=== PATIENT | female | born 1950 | race Caucasian/White ===

== ENCOUNTER 2019-09-06 08:41 | Outpatient (CLI) | payer MEDICARE, MEDICAID, SELFPAY ==
--- NOTE | ~2019-09-06 | XR_ITS ---
XR chest 2V DATE: 09/06/2019 09:07 INDICATION: Bilateral chest pain under both breasts TECHNIQUE: PA and lateral views COMPARISON: 01/30/2019 2 view chest FINDINGS: Status post sternotomy/coronary artery bypass graft surgery. Normal heart size. Aortic calc ification. threat monitoring analyst device overlies the lower left chest. Moderate bilateral hyperinflation. No pulmonary infiltrate or consolidation, pleural effusion or pulm onary vascular congestion or pneumothorax is detected. Diffuse osteopenia. Mild dextroscoliosis and degenerative spurring of the thoracic spine. IMPRESSION: Status post sternotomy/CABG. threat monitoring analyst device. Moderate hyperinflation Aortic calcification Reviewed, dictated and finalized at location B. THCARE REPRESENTATIVE
== END 2019-09-06 08:42 | disposition home or self-care (01) ==
LOC: ANHIMG 08:45
PROVIDERS: PCP Family Medicine; Visit Provider Family Medicine
DX: R07.9 Chest pain, unspecified (principal); Z95.1 Presence of aortocoronary bypass graft; R91.8 Other nonspecific abnormal finding of lung field; I70.0 Atherosclerosis of aorta
CPT/HCPCS: 71046

== ENCOUNTER 2020-01-31 01:20 | Outpatient (CLI) | payer MEDICARE, MEDICAID, SELFPAY ==
[2020-01-31 18:41] LABS: SARS-CoV-2 RNA PCR Negative
== END 2020-01-31 01:21 | disposition home or self-care (01) ==
LOC: ANHCOVIDDT 01:20
PROVIDERS: PCP Family Medicine; Visit Provider Internal Medicine Cardiovascular Disease
DX: Z01.812 Encounter for preprocedural laboratory examination (principal); Z11.59 Encounter for screening for other viral diseases
CPT/HCPCS: 87635; C9803; U0003

== ENCOUNTER 2020-03-02 11:54 | Outpatient (CLI) | payer MEDICARE, MEDICAID, SELFPAY ==
--- NOTE | ~2020-03-02 | XR_ITS ---
EXAMINATION: XR chest 2V DATE: 03/02/2020 12:19 INDICATION: Chest wall pain. Posterior left chest pain. TECHNIQUE: Frontal and lateral views of the chest were obtained. COMPARISON: Chest 2 views 09/06/2019, chest CT 05/24/2017 FINDINGS: There is mild scarring at the lung apices and at left lung base. No pleural effusion or pne umothorax. The heart size is normal. Median sternotomy wires and mediastinal surgical clips are seen, likely from prior coronary artery bypass grafting. Retained epicardial pacer wires are noted. There is an electronic implant in left anterior chest wall. There is mild chronic anterior wedging of multi ple thoracic vertebral bodies. IMPRESSION: 1. Mild scarring at the lung apices and at left lung base. Reviewed, dictated and finalized at location B.
== END 2020-03-02 11:55 | disposition home or self-care (01) ==
LOC: ANHIMG 12:03
PROVIDERS: PCP Family Medicine; Visit Provider Family Medicine
DX: R07.89 Other chest pain (principal); R91.8 Other nonspecific abnormal finding of lung field
CPT/HCPCS: 71046

== ENCOUNTER 2020-03-14 07:57 | Outpatient (CLI) | payer MEDICARE, MEDICAID, SELFPAY ==
--- NOTE | ~2020-03-14 | MM_ITS ---
EXAMINATION: MM screening [facility] BI w ana HISTORY: Screening mammogram TECHNIQUE: Craniocaudal and mediolateral oblique 3-D tomosynthesis images were obtained and synthetic 2-D images were generated. CAD analysis was submitted and interpreted. COMPARISON: 01/06/2019, 10/21/2017, 09/19/2016 BREAST PARENCHYMAL COMPOSITION: There are scattered areas of fibroglandular density. FINDINGS: A stable focal asymmetry in the upper outer quadrant of the left breast is considered benig n given the lack of interval change. There is no evidence of suspicious mass, calcification, or archi tectural distortion to suggest malignancy in either breast. There has been no suspicious interval bacilio nge. IMPRESSION: 1. No mammographic evidence of malignancy. 2. Recommend routine screening mammography in one year. BI-RADS Category 2: Benign finding(s). Reviewed, dictated and finalized at location A.
== END 2020-03-14 07:58 | disposition home or self-care (01) ==
PROVIDERS: PCP Family Medicine; Visit Provider Family Medicine
DX: Z12.31 Encounter for screening mammogram for malignant neoplasm of breast (principal)
CPT/HCPCS: 77063; 77067

== ENCOUNTER 2020-07-25 10:42 | Outpatient (CLI) | payer MEDICARE, MEDICAID, SELFPAY ==
--- NOTE | ~2020-07-25 | US_ITS ---
EXAMINATION: US carotid duplex BI DATE: 07/25/2020 11:19 INDICATION: TECHNIQUE: Grayscale, color Doppler, and pulsed Doppler images of the cervical carotid arteries were obtained. The degree of vessel stenosis is placed in one of the following categories: normal, <50%, 5 0-69%, >=70% but less than near-occlusion, near-occlusion, or total occlusion. Note that percent sten osis relative to normal distal artery lumen diameter is indirectly measured from velocity measurement s as described by Bucky, et al. Radiology 2003; 229:340-346. Notes: Normal: Peak systolic velocity <125 centimeters/sec and no plaque <50%. Peak systolic velocity <125 ( EDV <40; ICA/CCA PSV ratio <2.0; used these factors only a tandem lesions or low cardiac output or co ntralateral disease) 50-69 %: PSV 125-230 (EDV 40-100; ratio 2-4) >= 70% but less than near occlusion: PSV greater than 230 (EDV > 100; ratio> 4.0) Near Occlusion: PSV that is variable; markedly narrowed lumen Occlusion: Absent flow on color/spectral Doppler and no lumen on toney scale. COMPARISON: 07/26/2019 FINDINGS: RIGHT: The right common carotid artery (CCA) peak systolic velocity (PSV) is 89 cm/s. The right internal car otid artery (ICA) PSV is 142 cm/s. The right ICA end-diastolic velocity (EDV) is 35 cm/s. The right I CA/CCA PSV ratio is 1.6. The external carotid artery (ECA) PSV is 183 cm/s. There is antegrade flow i n the right vertebral artery. LEFT: The left CCA PSV is 132 cm/s. The left ICA PSV is 226 cm/s. The left ICA EDV is 68 cm/s. The left ICA /CCA PSV ratio is 1.7. The ECA PSV is 164 cm/s. There is antegrade flow in the left vertebral artery . IMPRESSION: 1. 50-69% stenosis in the right internal carotid artery by sonographic criteria. 2. 50-69% stenosis in the left internal carotid artery by sonographic criteria. Reviewed, dictated and finalized at location A. ORATE DIRECTOR OF PHARMACY IMPRESSION: 1. 50-69% stenosis in the right internal carotid artery by sonographic criteria . 2. 50-69% stenosis in the left internal carotid artery by sonographic criteria.
== END 2020-07-25 10:43 | disposition home or self-care (01) ==
PROVIDERS: PCP Family Medicine; Visit Provider Internal Medicine Cardiovascular Disease
DX: I65.23 Occlusion and stenosis of bilateral carotid arteries (principal); R09.89 Other specified symptoms and signs involving the circulatory and respiratory systems
CPT/HCPCS: 93880

== ENCOUNTER 2020-07-27 09:17 | Outpatient (CLI) | payer MEDICARE, MEDICAID, SELFPAY ==
--- NOTE | ~2020-07-27 | XR_ITS ---
XR chest 2V 07/27/2020 09:32 Indication: Status post placement of implantable loop recorder. Procedure: PA and lateral views of the chest Comparison: Comparison to multiple prior studies sequentially, with oldest reviewed study dated 11/28. Findings: Status post median sternotomy for CABG. There is an implantable loop recorder overlying the cardiac contour. Chronic left basilar scarring. No acute focal pneumonia, edema or effusion. There i s apical pleural thickening/scarring. Impression: 1: No acute cardiopulmonary disease. Reviewed, dictated and finalized at location A. RING MACHINE OPERATOR Impression: 1: No acute cardiopulmonary disease.
== END 2020-07-27 09:18 | disposition home or self-care (01) ==
LOC: ANHIMG 09:25
PROVIDERS: PCP Family Medicine; Visit Provider Internal Medicine Cardiovascular Disease
DX: Z95.818 Presence of other cardiac implants and grafts (principal)
CPT/HCPCS: 71046

== ENCOUNTER 2020-08-17 10:25 | Outpatient (CLI) | payer MEDICARE, MEDICAID, SELFPAY ==
--- NOTE | ~2020-08-17 | XR_ITS ---
EXAMINATION: XR cervical spine 4-5V DATE: 08/17/2020 10:51 INDICATION: Neck pain. TECHNIQUE: 4 views of cervical spine were obtained. COMPARISON: Cervical spine radiographs 12/04/2017 FINDINGS: Bone alignment is normal. Vertebral body heights are normal. There is mildly decreased disc height at C5-C6. The facet joints are unremarkable. No central canal stenosis or prevertebral soft t issue swelling. IMPRESSION: 1. Mild cervical spondylosis. Reviewed, dictated and finalized at location A. UCTION HONING MACHINE OPERATOR
== END 2020-08-17 10:26 | disposition home or self-care (01) ==
PROVIDERS: PCP Family Medicine; Visit Provider Family Medicine
DX: M54.2 Cervicalgia (principal); M47.812 Spondylosis without myelopathy or radiculopathy, cervical region
CPT/HCPCS: 72050

== ENCOUNTER 2020-10-24 10:41 | Outpatient (CLI) | payer MEDICARE, MEDICAID, SELFPAY ==
--- NOTE | ~2020-10-24 | XR_ITS ---
EXAMINATION: XR chest 2V DATE: 10/24/2020 11:04 INDICATION: Hypertension. TECHNIQUE: Frontal and lateral views of the chest were obtained. COMPARISON: Chest 2 views 07/27/2020, chest CT 05/24/2017 FINDINGS: There is stable scarring in the upper lobes. There is stable mild scarring in the lower lob es. No pleural effusion or pneumothorax. The heart size is normal. Median sternotomy wires and medias tinal surgical clips are seen, likely from prior coronary artery bypass grafting. There is an electro tirso implant in left chest wall. There is mild chronic anterior wedging of multiple vertebral bodies. IMPRESSION: 1. Stable mild scarring in the upper and lower lobes. Reviewed, dictated and finalized at location A.
== END 2020-10-24 10:42 | disposition home or self-care (01) ==
PROVIDERS: PCP Family Medicine; Visit Provider Family Medicine
DX: J98.4 Other disorders of lung (principal)
CPT/HCPCS: 71046

== ENCOUNTER 2020-11-21 12:17 | Outpatient (CLI) | payer MEDICARE, MEDICAID, SELFPAY ==
--- NOTE | ~2020-11-21 | XR_ITS ---
EXAMINATION: XR lumbar spine 2-3V, XR hip RT min 2V, XR hip LT min 2V DATE: 11/21/2020 12:55 INDICATION: Low back pain and bilateral hip pain. TECHNIQUE: 1. Anteroposterior and lateral views of the lumbar spine, and cone-down lateral view of the lumbosacr al junction were obtained. 2. Anteroposterior, frog leg lateral and crosstable lateral views of the right hip were obtained. 3. Anteroposterior, frog leg lateral and crosstable lateral views of the left hip were obtained. COMPARISON: None. FINDINGS: Lumbar spine: Alignment is normal. Vertebral body heights and lumbar disc heights are normal. Mild to moderate disc height loss throughout the visualized lower thoracic spine and at T12-L1. Mild to moderate lower lum bar predominant facet osteoarthritis. Left pectoral implantable tester food products. Median sternotomy wi res and mediastinal surgical clips are seen, likely from prior coronary artery bypass grafting. Retai sheryl epicardial pacemaker leads. Atherosclerotic aorta. Pelvis and bilateral hips: Alignment is normal. No fracture or suspected avascular necrosis. Mild bilateral hip and sacroiliac o steoarthritis. Soft tissues are unremarkable. IMPRESSION: 1. Thoracolumbar spondylosis with mild to moderate multilevel disc height loss in the lower thoracic spine and mild to moderate lower lumbar predominant facet osteoarthritis. 2. Mild bilateral hip and sacroiliac osteoarthritis. Reviewed, dictated and finalized at location A. IMPRESSION: 1. Thoracolumbar spondylosis with mild to moderate multilevel disc height loss in the lower thoracic spine and mild to moderate lower lumbar predominant facet osteoarthritis. 2. Mild bilateral hip and sacroiliac osteoarthritis. IMPRESSION: 1. Thoracolumbar spondylosis with mild to moderate multilevel disc height loss in the lower thoracic spine and mild to moderate lower lumbar predominant facet osteoarthritis. 2. Mild bilateral hip and sacroiliac osteoarthritis.
== END 2020-11-21 12:18 | disposition home or self-care (01) ==
PROVIDERS: PCP Family Medicine; Visit Provider Family Medicine
DX: M16.0 Bilateral primary osteoarthritis of hip (principal); M47.816 Spondylosis without myelopathy or radiculopathy, lumbar region
CPT/HCPCS: 72100; 73502

== ENCOUNTER 2021-06-02 08:43 | Outpatient (CLI) | payer OTHER, SELFPAY ==
--- NOTE | ~2021-06-02 | MM_ITS ---
EXAMINATION: MM screening [facility] BI w ana HISTORY: Screening mammogram TECHNIQUE: Craniocaudal and mediolateral oblique 3-D tomosynthesis images were obtained and synthetic 2-D images were generated. CAD analysis was submitted and interpreted. COMPARISON: 03/14/2020, 01/06/2019 BREAST PARENCHYMAL COMPOSITION: There are scattered areas of fibroglandular density. FINDINGS: There is no evidence of suspicious mass, calcification, or architectural distortion to sugg est malignancy in either breast. There has been no suspicious interval change. IMPRESSION: 1. No mammographic evidence of malignancy. 2. Recommend routine screening mammography in one year. BI-RADS Category 1: Negative Reviewed, dictated and finalized at location A. IOVASCULAR DISEASE SPECIALIST
--- NOTE | ~2021-06-02 | DEXA_ITS ---
Bone Density Report Name: Katherine Quinones Age: 71 Sex: Female Ethnicity: White Date of : 1950 Indication: osteopenia; height loss; prior fracture; Referring Provider: NOHEMI, MERCEDES Barry Study: Bone densitometry was performed. Exam Date: June 02, 2021 Accession number: [id number] Bone Density: Region BMD T-score Z-score Classification AP Spine (L2, L3, L4) 0.838 -2.2 0.0 Osteopenia Femoral Neck (Left) 0.777 -0.6 1.2 Normal Total Hip (Left) 0.784 -1.3 0.2 Osteopenia Total Hip Bilateral Avg 0.772 -1.4 0.1 Osteopenia Femoral Neck (Right) 0.814 -0.3 1.5 Normal Total Hip (Right) 0.759 -1.5 0.0 Osteopenia World Health Organization criteria for BMD impression classify patients as: Normal (T-score at or above -1.0), Osteopenia (T-score between -1.0 and -2.5), or Osteoporosis (T-score at or below -2.5). 10-year Fracture Risk(1): Major Osteoporotic Fracture 13% Hip Fracture 1.1% Reported Risk Factors: [place] (), Neck BMD=0.777, BMI=24.5, previous fracture (1) FRAX(R) Version 3.08. Fracture probability calculated for an untreated patient. Fracture probability may be lower if the patient has received treatment. Previous Exams: Region Exam Age BMD T-score BMD Change BMD Change Date g/cm2 vs Baseline vs Previous AP Spine(L2, L3, L4) 06/02/2021 71 0.838 -2.2 -0.086(-9.3%)* -0.022(-2.6%) 09/08/2018 68 0.860 -2.0 -0.064(-6.9%)* -0.064(-6.9%)* 06/01/2015 65 0.924 -1.4 Total Hip(Left) 06/02/2021 71 0.784 -1.3 -0.099(-11.2%) -0.028(-3.4%)* 09/08/2018 68 0.811 -1.1 -0.072(-8.1%)* -0.072(-8.1%)* 06/01/2015 65 0.883 -0.5 Total Hip(Right) 06/02/2021 71 0.759 -1.5 -0.162(-17.5%) -0.027(-3.5%)* 09/08/2018 68 0.787 -1.3 -0.134(-14.6%) -0.134(-14.6%) 06/01/2015 65 0.921 -0.2 *Denotes significance at 95% confidence level, LSC for AP Spine = 0.022 g/cm2, LSC for Total Hip = 0.027 g/cm2 Clinical Information Provided by Patient: Has had a low trauma fracture Has used the following medications: Vitamin D Patient maximum height was 66 Menopause Age: 51 No regular weight bearing exercise Does not regularly consume dairy products Drinks caffeinated beverages Onset of menses at age 13 Number of children 4 Impression: The patient has low bone mass, based on the Total Spine T-score. The patient has an estimated ten-year risk of hip fracture of 1.1% and an estimated ten-year risk of major fractur
== END 2021-06-02 08:44 | disposition home or self-care (01) ==
PROVIDERS: PCP Family Medicine; Referring Provider Internal Medicine Cardiovascular Disease; Visit Provider Family Medicine
DX: Z12.31 Encounter for screening mammogram for malignant neoplasm of breast (principal); Z78.0 Asymptomatic menopausal state; M85.89 Other specified disorders of bone density and structure, multiple sites
CPT/HCPCS: 77063; 77067; 77080

== ENCOUNTER 2021-08-27 11:49 | Outpatient (CLI) | payer MEDICARE, MEDICAID, SELFPAY ==
--- NOTE | ~2021-08-27 | US_ITS ---
EXAMINATION: US carotid duplex BI DATE: 08/27/2021 12:41 INDICATION: Atherosclerosis TECHNIQUE: Grayscale, color Doppler, and pulsed Doppler images of the cervical carotid arteries were obtained. The degree of vessel stenosis is placed in one of the following categories: normal, <50%, 5 0-69%, >=70% but less than near-occlusion, near-occlusion, or total occlusion. Note that percent sten osis relative to normal distal artery lumen diameter is indirectly measured from velocity measurement s as described by Bucky, et al. Radiology 2003; 229:340-346. COMPARISON: None. FINDINGS: RIGHT: The right common carotid artery (CCA) peak systolic velocity (PSV) is 129 cm/s. The right internal ca rotid artery (ICA) PSV is 137 cm/s. The right ICA end-diastolic velocity (EDV) is 25 cm/s. The right ICA/CCA PSV ratio is 1.1. Grayscale and color Doppler images yield an estimate of 50-69% diameter red uction from plaque in the ICA. The external carotid artery (ECA) PSV is 202 cm/s. There is antegrade flow in the right vertebral artery. LEFT: The left CCA PSV is 153 cm/s. The left ICA PSV is 264 cm/s. The left ICA EDV is 55 cm/s. The left ICA /CCA PSV ratio is 1.7. Grayscale and color Doppler images yield an estimate of >=70% (but less than n ear occlusion) diameter reduction from plaque in the ICA. The ECA PSV is 343 cm/s. There is antegrade flow in the left vertebral artery. IMPRESSION: 1. 50-69% stenosis in the right internal carotid artery. 2. >=70% (but less than near occlusion) stenosis in the left internal carotid artery. Reviewed, dictated and finalized at location A. TENDER HELPER IMPRESSION: 1. 50-69% stenosis in the right internal carotid artery. 2. >=70% (but less than near occlusion) stenosis in the left internal carotid a lobo.
== END 2021-08-27 11:50 | disposition home or self-care (01) ==
PROVIDERS: PCP Family Medicine; Visit Provider Internal Medicine Cardiovascular Disease
DX: I70.90 Unspecified atherosclerosis (principal); R09.89 Other specified symptoms and signs involving the circulatory and respiratory systems; I65.23 Occlusion and stenosis of bilateral carotid arteries
CPT/HCPCS: 93880

== ENCOUNTER 2021-09-17 08:02 | Outpatient (CLI) | payer MEDICARE, MEDICAID, SELFPAY ==
--- NOTE | ~2021-09-17 | CT_ITS ---
EXAMINATION: CTA neck EXAM DATE: 09/17/2021 08:31 INDICATION: Bruit Of Left Carotid Artery . TECHNIQUE: Spiral CTA of the carotid arteries was performed with intravenous injection 100cc of Omnip aque 350. Axial, coronal, sagittal reformatted images reviewed. Additional reformatted images creat ed on dedicated 3-D workstation. NASCET comparable standard used to assess the degree of arterial st enosis. The dose-length product (DLP) for this examination was 379.00 mGy-cm. The exposure was tail ored according to patient size (auto mA exposure control), and iterative reconstruction (ASIR) was us ed as additional dose reduction technique. There is no prior study for comparison. FINDINGS: The right vertebral artery is dominant. The origin of the left vertebral artery does not en mirta, but is reconstituted at the mid cervical level. This diminutive vertebral artery appears to en d in posterior inferior cerebellar artery. The right vertebral artery supplies the basilar. There is mild to moderate bilateral carotid bulb arteriosclerosis with 30% stenosis on the right and 35% steno sis on the left. No cervical lymphadenopathy. Unremarkable parotid and submandibular glands. Biapical opacities most l ikely chronic postinfectious residua. Mild to moderate cervical spondylosis. IMPRESSION: Bilateral carotid bulb arteriosclerosis with 30% right and 35% left carotid bulb stenosis . Reviewed, dictated and finalized at location B. MEN PLANT OPERATOR IMPRESSION: Bilateral carotid bulb arteriosclerosis with 30% right and 35% left carotid bulb stenosis.
[2021-09-17 08:25] LABS: Estimated Glomerular Filt Rate 49
== END 2021-09-17 08:03 | disposition home or self-care (01) ==
LOC: ANHIMG 08:06
PROVIDERS: PCP Family Medicine; Visit Provider Internal Medicine Cardiovascular Disease
DX: R09.89 Other specified symptoms and signs involving the circulatory and respiratory systems (principal); I65.23 Occlusion and stenosis of bilateral carotid arteries
CPT/HCPCS: 70498; Q9967

== ENCOUNTER → 2022-02-09 00:07 | Outpatient (CLI) | payer MEDICARE, MEDICAID, SELFPAY ==
[2022-02-09 11:03] LABS: SARS-CoV-2 RNA PCR Negative
== END ==
PROVIDERS: PCP Family Medicine; Visit Provider Family Medicine
DX: R05.1 Acute cough (principal); Z20.822 Contact with and (suspected) exposure to COVID-19
CPT/HCPCS: C9803; U0003; U0005

== ENCOUNTER 2022-09-05 08:09 | Outpatient (CLI) | payer MEDICARE, MEDICAID, SELFPAY ==
--- NOTE | ~2022-09-05 | XR_ITS ---
EXAMINATION: XR chest 2V DATE: 09/05/2022 08:40 INDICATION: Chronic posterior chest pain TECHNIQUE: PA and lateral views of the chest are obtained. COMPARISON: 10/24/2020 FINDINGS: The lungs are free of acute opacities. There is scarring of the lung apices. No pleural eff usion or pneumothorax. The cardiomediastinal silhouette is normal. There is moderate thoracic spondyl osis. Median sternotomy wires and mediastinal surgical clips are seen, likely from prior coronary art louis bypass grafting. A cardiac monitoring device is implanted in the left anterior chest wall. IMPRESSION: 1. No acute cardiopulmonary abnormality. Reviewed, dictated and finalized at location L. KILN OPERATOR
--- NOTE | ~2022-09-05 | XR_ITS ---
EXAMINATION: XR thoracic spine 3V DATE: 09/05/2022 08:40 INDICATION: Thoracic back pain TECHNIQUE: AP, lateral and lateral swimmer's views of the thoracic spine were obtained. COMPARISON: 12/04/2017 FINDINGS: Bone alignment is normal. There is no fracture. The vertebral body heights are maintained. There is chronic, moderate loss of intervertebral disc space height at multiple levels in the midthor acic spine. Small degenerative osteophytes project from the anterior endplates of multiple vertebral bodies. Median sternotomy wires and mediastinal surgical clips are seen, likely from prior coronary a rtery bypass grafting. IMPRESSION: 1. Moderate thoracic spondylosis without acute findings or significant interval change. Reviewed, dictated and finalized at location L. BUILDER
--- NOTE | ~2022-09-05 | XR_ITS ---
EXAMINATION: XR lumbar spine 2-3V DATE: 09/05/2022 08:40 INDICATION: Low back pain TECHNIQUE: Anteroposterior and lateral views of the lumbar spine, and cone-down lateral view of the l umbosacral junction were obtained. COMPARISON: 11/21/2020 FINDINGS: Alignment is normal. There is no fracture. There is mild loss of intervertebral disc space height at L5-S1. The vertebral body heights are maintained. Small degenerative osteophytes project fr om the anterior endplates of multiple vertebral bodies. There is moderate facet joint osteoarthritis of the lower lumbar spine. Calcified atherosclerosis is noted. IMPRESSION: 1. Mild to moderate lumbar spondylosis without acute findings or significant interval change. Reviewed, dictated and finalized at location L. BILITATION AIDE/SCHEDULER IMPRESSION: 1. Mild to moderate lumbar spondylosis without acute findings or significant in terval change.
== END 2022-09-05 08:10 | disposition home or self-care (01) ==
PROVIDERS: PCP Family Medicine; Visit Provider Family Medicine
DX: R07.9 Chest pain, unspecified (principal); M47.816 Spondylosis without myelopathy or radiculopathy, lumbar region; M47.814 Spondylosis without myelopathy or radiculopathy, thoracic region
CPT/HCPCS: 71046; 72072; 72100

== ENCOUNTER 2022-11-26 09:13 | Outpatient (CLI) | payer MEDICARE, MEDICAID, SELFPAY ==
--- NOTE | ~2022-11-26 | MM_ITS ---
EXAMINATION: MM screening [facility] BI w ana HISTORY: Screening mammogram TECHNIQUE: Craniocaudal and mediolateral oblique 3-D tomosynthesis images were obtained and synthetic 2-D images were generated. CAD analysis was submitted and interpreted. COMPARISON: 06/02/2021, 03/14/2020, 01/06/2019 BREAST PARENCHYMAL COMPOSITION: There are scattered areas of fibroglandular density. FINDINGS: No suspicious mass, calcification, or architectural distortion are identified in either hillary ast to suggest malignancy. There has been no suspicious interval change. IMPRESSION: 1. No mammographic evidence of malignancy. 2. Recommend routine screening mammography in one year. BI-RADS Category 1: Negative Reviewed, dictated and finalized at location A.
== END 2022-11-26 09:14 | disposition home or self-care (01) ==
LOC: ANHIMG 09:17
PROVIDERS: PCP Family Medicine; Visit Provider Family Medicine
DX: Z12.31 Encounter for screening mammogram for malignant neoplasm of breast (principal)
CPT/HCPCS: 77063; 77067

== ENCOUNTER 2023-05-06 13:56 | Outpatient (CLI) | payer MEDICARE, MEDICAID, SELFPAY ==
--- NOTE | ~2023-05-06 | XR_ITS ---
XR chest 2V DATE: 05/06/2023 14:12 INDICATION: Bilateral lower lateral rib pain. No injury. TECHNIQUE: 2 views COMPARISON: September 05, 2022 2 view chest September 06, 2019 PA and lateral chest FINDINGS: Monitor device is again noted in the anterior lower left chest wall. Status post sternotomy and coronary artery bypass graft surgery. Borderline heart size. Aortic calcification. Bilateral apical scarring. No pulmonary infiltrate or consolidation, pleural effusion or pulmonary va scular congestion or pneumothorax is detected. Diffuse osteopenia. There is thoracic dextroscoliosis. IMPRESSION: Bilateral apical scarring Status post sternotomy/CABG No active cardiopulmonary disease is evident Reviewed, dictated and finalized at location A.
== END 2023-05-06 13:57 | disposition home or self-care (01) ==
LOC: ANHIMG 14:02
PROVIDERS: PCP Family Medicine; Visit Provider Family Medicine
DX: R07.81 Pleurodynia (principal); J98.4 Other disorders of lung; Z95.1 Presence of aortocoronary bypass graft
CPT/HCPCS: 71046

== ENCOUNTER 2023-10-10 10:01 | Outpatient (CLI) | payer MEDICARE, MEDICAID, SELFPAY ==
--- NOTE | ~2023-10-10 | US_ITS ---
EXAMINATION: US carotid duplex BI DATE: 10/10/2023 11:37 INDICATION: Bilateral carotid artery stenosis TECHNIQUE: Grayscale, color Doppler, and pulsed Doppler images of the cervical carotid arteries were obtained. The degree of vessel stenosis is placed in one of the following categories: normal, <50%, 5 0-69%, >=70% but less than near-occlusion, near-occlusion, or total occlusion. Note that percent sten osis relative to normal distal artery lumen diameter is indirectly measured from velocity measurement s as described by Bucky, et al. Radiology 2003; 229:340-346. COMPARISON: 08/27/2021 FINDINGS: RIGHT: The right common carotid artery (CCA) peak systolic velocity (PSV) is 96 cm/s. The right internal car otid artery (ICA) PSV is 149 cm/s. The right ICA end-diastolic velocity (EDV) is 30 cm/s. The right I CA/CCA PSV ratio is 1.5. Grayscale and color Doppler images yield an estimate of 50-69% diameter redu ction from plaque in the ICA. The external carotid artery (ECA) PSV is 227 cm/s. There is antegrade f low in the right vertebral artery. LEFT: The left CCA PSV is 136 cm/s. The left ICA PSV is 180 cm/s. The left ICA EDV is 25 cm/s. The left ICA /CCA PSV ratio is 1.3. Grayscale and color Doppler images yield an estimate of 50-69% diameter reduct ion from plaque in the ICA. The ECA PSV is 332 cm/s. There is antegrade flow in the left vertebral ar katie. IMPRESSION: 1. 50-69% stenosis in the right internal carotid artery. 2. 50-69% stenosis in the left internal carotid artery. Reviewed, dictated and finalized at location A.
== END 2023-10-10 10:02 | disposition home or self-care (01) ==
PROVIDERS: PCP Family Medicine; Visit Provider Nurse Practitioner Adult Health
DX: I65.23 Occlusion and stenosis of bilateral carotid arteries (principal)
CPT/HCPCS: 93880

== ENCOUNTER 2024-05-09 08:01 | Emergency (ER) | payer MEDICARE, MEDICAID, SELFPAY ==
--- NOTE | ~2024-05-09 | CT_ITS ---
Clinical Indication: Chest pain, abdominal pain CT Scan of the Chest, Abdomen, and Pelvis with Contrast: Technique: Contiguous sections were acquired throughout the chest, abdomen, and pelvis after intraven ous administration of 100 cc of Omnipaque 350. Dose reduction technique was used on this scan by uti veritoing automated exposure control and iterative reconstruction technique. The dose-length product (DL P) was 553.54 mGy-cm. Findings: There is no evidence of any significant mediastinal, hilar or axillary lymphadenopathy. The mediastin al soft tissues and vascular structures appear normal. No thoracic aortic aneurysm or dissection. No pulmonary embolus seen. There is no evidence of pleural or pericardial effusion. There is mild diffuse interstitial thickening. There are irregular biapical airspace opacity not refl ect chronic scarring versus possibly pneumonia or other interstitial disease. Probable minimal depend ent atelectatic change. The liver, spleen, pancreas, gallbladder, adrenals and kidneys are within normal limits. Infrarenal a bdominal aortic aneurysm measures up to 4 cm in diameter. There are atherosclerotic calcifications of the aorta. No lymphadenopathy. No bowel obstruction or bowel wall thickening. There is no evidence to suggest acute appendicitis. Urinary bladder is unremarkable. No adnexal mass seen. No ascites. There is mild loss of height of mi d to lower thoracic vertebral bodies with mild kyphosis, possibly representing Scheuermann's disease. Impression: 4 cm infrarenal abdominal aortic aneurysm. Irregular biapical airspace opacity reflect chronic biapical scarring versus pneumonia or other chron ic interstitial disease. Probable underlying mild interstitial pulmonary edema versus other mild chronic interstitial disease. Suspected Scheuermann's disease. Reviewed, dictated and finalized at [facility]. Impression: 4 cm infrarenal abdominal aortic aneurysm. Irregular biapical airspace opacity reflect chronic biapical scarring versus pn eumonia or other chronic interstitial disease. Probable underlying mild interstitial pulmonary edema versus other mild chronic interstitial disease. Suspected Scheuermann's disease.
--- NOTE | 2024-05-09 08:04 | ECG_ITS ---
Test Date: 2024-05-09 08:11:19 Measurements Intervals [place] Rate: 83 P: 47 MT: 140 QRS: 19 QRSD: 94 T: 30 QT: 356 QTc: 418 Interpretive Statements SINUS RHYTHM MINOR NONSPECIFIC ST SEGMENT CHANGE BORDERLINE ECG No previous ECG available for comparison Electronically Signed On 05-09-2024 09:07:35 CDT by Herber Dickson M.D.
[2024-05-09 08:05] VITALS: BP 191/82; PULSE 88; RESP 20; TEMP 36.5; O2SAT 100
--- NOTE | 2024-05-09 08:11 | ED.GENADULT ---
HPI - General Adult General Chief complaint: Abdominal Pain Stated complaint: abd pain Time Seen by Provider: 05/09/24 08:03 History of Present Illness HPI narrative: 74-year-old female presenting to the emergency department for evaluation for epigastric pain. Patient states she has daily pain but feels that the pain is worsened today. Patient states she was concerned that the pain was her aneurysm so she presented to the emergency department for evaluation. Patient states while she does have this pain constantly every day typically. She thinks it is more muscular in nature but today the pain is worse than typical so she became concerned. Related Data Home Medications Medication Instructions Recorded Confirmed No Home Medications 12/24/23 12/24/23 Allergies Allergy/AdvReac Type Severity Reaction Status Date / Time Sulfa (Sulfonamide Allergy Unknown Unknown Verified 05/09/24 08:19 Antibiotics) metoprolol Allergy Unknown Verified 05/09/24 08:20 Review of Systems Review of Systems: All systems reviewed & are unremarkable except as noted in HPI and below PMFSH Past Medical History Medical History (Updated 05/09/24 @ 12:02 by Chester Carrazna MD) Arthritis of carpometacarpal (CMC) joint of left thumb Arthritis of left wrist Fracture of distal end of left radius Family History Family History Other Cerebrovascular accident Diabetes mellitus Family history of alcoholism Family history of arthritis Family history of malignant neoplasm Hypertension Social History Social History Smoking status: Former smoker Alcohol intake: current Exam Narrative: APPEARANCE: Well appearing, no pain, no distress, well-nourished. HEAD: normocephalic, atraumatic. EYES: PERRLA/EOMI, conjunctivae clear. NOSE: Normal no drainage EARS:TMS clear with good light reflex. THROAT: Pharynx clear, no exudate. NECK: Supple. No adenopathy, no masses. RESPIRATORY: Airway patent, respirations nonlabored. Clear to auscultation bilaterally, no rales, rhonchi, wheezing. CARDIOVASCULAR: Regular rate and rhythm without murmurs rubs or gallops. ABDOMINAL: Epigastric tenderness to palpation MUSCULOSKELETAL: Moves all extremities. Strength/ROM intact, No edema, No calf tenderness. NEURO: Alert. Cranial nerves II through XII intact. Grossly intact Course Vital Signs Vital signs: Vital Signs Temperature 97.7 F 05/09/24 08:05 Pulse Rate 88 05/09/24 08:05 Respiratory Rate 20 05/09/24 08:05 Blood Pressure 191/82 H 05/09/24 08:05 Pulse Oximetry 100 05/09/24 08:05 Temperature 97.7 F 05/09/24 08:05 Pulse Rate 52 L 05/09/24 12:00 Respiratory Rate 18 05/09/24 12:00 Blood Pressure 111/56 L 05/09/24 12:00 Pulse Oximetry 95 05/09/24 12:00 Medical Decision Making MDM Narrative Medical decision making narrative: 74-year-old female presenting to the emergency department for evaluation for epigastric pain. Patient is afebrile with no leukocytosis and a stable hemoglobin of 12.5. Patient has a normal INR. No acute abnormalities on her CMP with negative serial troponins negative T bili AST ALT alk-phos and negative lipase. UA is not concerning for infection. CTA was ordered due to patient complaining of persistent abdominal pain. Patient does have a 4 cm infrarenal abdominal aortic aneurysm. Patient will have close follow-up with her primary care physician for this. Patient was also encouraged close follow-up with primary care physician for additional outpatient cardiac workup Differential Diagnosis Differential Diagnosis: Colitis, diverticulitis, intracranial injury, UTI, aneurysm, pancreatitis, cholelithiasis, cholecystitis Vital Signs Vital Signs: Vital Signs Temperature 97.7 F 05/09/24 08:05 Pulse Rate 88 05/09/24 08:05 Respiratory Rate 20 05/09/24 08:05 Blood Pres
[2024-05-09 08:36] LABS: Basophils Absolute Auto 0.1 K/mm3 (0.0-0.1); Basophils Percent Auto 0.5 % (0.2-1.2); Eosinophils Absolute Auto 0.3 K/mm3 (0-0.3); Hematocrit 38.2 % (37.0-47.0); Hemoglobin 12.5 g/dL (12.0-15.0); Immature Granulocyte Absolute 0.04 K/mm3 (0.00-0.031); Immature Granulocyte Percent A 0.4 % (0-0.5); Lymphocytes Absolute Auto 3.56 K/mm3 (0.9-3.2); Lymphocytes Percent Auto 37.1 % (18.3-44.2); Mean Corpuscular HGB Conc 32.7 g/dl (32-36); Mean Corpuscular Hemoglobin 32.2 pg (26-34); Mean Corpuscular Volume 98.5 fl (80-100); Mean Platelet Volume 10.2 fl (7.4-10.4); Monocytes Absolute Auto 0.8 K/mm3 (0.1-0.6); Monocytes Percent Auto 8.8 % (2.6-8.5); Neutrophils Absolute Auto 4.8 K/mm3 (1.3-6.7); Neutrophils Percent Auto 50.2 % (45.5-73.1); Platelet Count Result 268 k/mm3 (150-375); Red Blood Count 3.88 M/mm3 (4.2-5.4); Red Cell Distribution Width 13.6 % (11.5-14.5); White Blood Count 9.6 K/mm3 (4.5-10.0)
[2024-05-09 08:37] LABS: Prothrombin Time 13.8 Seconds (11.1-14.7)
[2024-05-09 08:38] LABS: Partial Thromboplastin Time 24.4 Seconds (22.3-36.8)
[2024-05-09 08:49] LABS: Add Urine Microscopic? YES; Appearance Urine Clear (Clear); Bacteria Urine None Seen /hpf; Bilirubin Urine Negative (Negative); Blood Urine Negative (Negative); Color Urine Yellow (Yellow); Glucose Urine UA Negative (Negative); Ketones Urine Negative (Negative); Leukocyte Esterase Ur Negative LEU/UL (Negative); Nitrate Urine Negative (Negative); Non Pathogenic Casts 0-2; Protein Urine Trace mg/dL (Negative); RBC Urine 0-2 /hpf (0-2); Specific Grav Ur 1.013 (1.001-1.035); Squamous Epithelial Cell Urine None Seen /hpf (Few); Urobilinogen Urine 0.2 mg/dL (<2.0); WBC Urine 0-5 /hpf (0-3)
[2024-05-09 08:51] LABS: Alanine Aminotransferase 13 U/L (6-35); Albumin Level 4.8 g/dL (3.5-5.1); Alkaline Phosphatase 72 U/L (38-126); Anion Gap 11 mmol/L (4-12); Aspartate Amino Transferase 32 U/L (14-36); Bilirubin,Total 0.6 mg/dL (0.2-1.3); Blood Urea Nitrogen 27 mg/dL (7-17); Carbon Dioxide 24 mmol/L (22-30); Chloride 104 mmol/L (98-107); Estimated CRCL calculation 29 ml/min; Estimated Glomerular Filt Rate 40; Glucose 102 mg/dL (65-110); Lipase 156 U/L (23-300); Potassium 3.9 mmol/L (3.4-5.0); Sodium 139 mmol/L (137-145)
[2024-05-09 09:00] VITALS: BP 157/68; PULSE 82; RESP 16; O2SAT 97
[2024-05-09 09:38] LABS: Troponin I < 0.012 ng/mL (0.000-0.034)
[2024-05-09 10:00] VITALS: BP 124/66; PULSE 71; RESP 18; O2SAT 95
[2024-05-09 11:00] VITALS: BP 147/62; PULSE 69; RESP 18; O2SAT 98
--- NOTE | 2024-05-09 11:02 | ECG_ITS ---
Test Date: 2024-05-09 11:04:52 Measurements Intervals [place] Rate: 68 P: 39 ND: 149 QRS: 17 QRSD: 82 T: 33 QT: 404 QTc: 432 Interpretive Statements SINUS RHYTHM NONSPECIFIC T-WAVE ABNORMALITY ABNORMAL ECG Compared to ECG 05/09/2024 08:11:19 T-wave abnormality now present Electronically Signed On 05-10-2024 10:37:07 CDT by Ernie Zarate M.D.
[2024-05-09 11:37] LABS: Troponin I < 0.012 ng/mL (0.000-0.034)
[2024-05-09 12:00] VITALS: BP 111/56; PULSE 52; RESP 18; O2SAT 95
== END 2024-05-09 13:00 | disposition home or self-care (01) ==
PROVIDERS: Emergency Provider Emergency Medicine; PCP Nurse Practitioner Family
DX: R10.13 Epigastric pain (principal); M19.032 Primary osteoarthritis, left wrist; M18.9 Osteoarthritis of first carpometacarpal joint, unspecified; Z87.891 Personal history of nicotine dependence; I71.43 Infrarenal abdominal aortic aneurysm, without rupture; R93.5 Abnormal findings on diagnostic imaging of other abdominal regions, including retroperitoneum; R94.31 Abnormal electrocardiogram [ECG] [EKG]
CPT/HCPCS: 36415; 71275; 74174; 80053; 81001; 83690; 84484; 85025; 85610; 85730; 93005; 99284; Q9967

== ENCOUNTER 2024-11-22 08:13 | Outpatient (CLI) | payer MEDICARE, MEDICAID, SELFPAY ==
--- NOTE | ~2024-11-22 | US_ITS ---
EXAMINATION: US arterial duplex LE DATE: 11/22/2024 09:16 INDICATION: Peripheral vascular disease TECHNIQUE: Multiple grayscale and Doppler ultrasound images of the arteries of the left lower limb we re obtained. COMPARISON: None FINDINGS: Triphasic waveforms with brisk systolic upstrokes at the left common femoral artery and profunda femo ral artery. Biphasic waveforms also with brisk systolic upstrokes at the left superficial femoral and popliteal arteries. Monophasic waveforms with brisk systolic upstrokes at the left anterior tibial, posterior tibial and dorsalis pedis arteries. Left peroneal artery was unable to be visualized. Triphasic waveforms with brisk systolic upstroke at the right common femoral, superficial femoral and popliteal arteries. Biphasic waveforms in the right profunda femoral, posterior tibial, anterior tib ial, peroneal and dorsalis pedis arteries, all with brisk systolic upstrokes. IMPRESSION: 1. No discernible arterial flow in the region of the left peroneal artery which could be thrombosed. Brisk systolic upstrokes without evident significant stenosis in the remaining arteries of both lower limbs. Reviewed, dictated and finalized at location A. IMPRESSION: 1. No discernible arterial flow in the region of the left peroneal artery which could be thrombosed. Brisk systolic upstrokes without evident significant sten osis in the remaining arteries of both lower limbs.
--- OUTSIDE RECORDS SUMMARY | 2024-11-22 08:24 | XMS_ITS | Data Portability ---
Author Organization [place] - [facility] [employer], Main Office Address [address] [place] [address] Assessment Encounter Date Assessment Date Assessment LastModified by Organization Details LastModified Time 10/21/2023 10/21/2023 will see therapist and psychiatry upcoming feeling better now, will recheck labs [email or web address] Not available 10/21/2023 11:47:13 04/08/2024 04/08/2024 I have reconciled the patient's medications post their discharge from inpatient facility. Not available 04/08/2024 08:29:39 Plan of Treatment Reminders Order Date Submit Date Provider Last Modified By Organization Details Last Modified Time Details Appointments None recorded. Lab TSH, serum or plasma 2023 024 [email or web address] [facility] (Lab), [address] [place], [address], 4 07:57:30 lipid panel, serum 2023 024 PASTOR Not available 4 22:19:17 hepatic function panel, serum 2023 024 PASTOR Not available 4 22:19:19 vitamin D3, 25-hydroxy, serum 2023 024 PASTOR Not available 4 22:08:30 BMP, serum or plasma 2023 024 PASTOR Not available 4 22:19:15 CBC w/ auto diff 2023 024 PASTOR Not available 4 03:00:23 TSH, serum or plasma 2023 024 PASTOR Not available 4 22:28:16 T4, free, serum 2023 024 PASTOR Not available 4 22:28:06 urinalysis complete, reflex culture 2023 024 [email or web address] Not available 4 08:20:20 ferritin, serum or plasma 2023 024 PASTOR Not available 4 22:28:36 iron + total iron-bindin g capacity (TIBC), serum 2023 024 PASTOR Not available 4 22:18:33 CBC w/ auto diff 2023 024 PASTOR Not available 4 20:06:32 vitamin B12, serum 2023 024 PASTOR Not available 4 22:14:55 lipid panel, serum [address] (Lab), [address] [place], [address], 3 09:05:54 hepatic function panel, serum [address] (Lab), [address] [place], [address], 3 09:06:32 vitamin D3, 25-hydroxy, serum [address] (Lab), [address] [place], [address], 3 09:09:04 BMP, serum or plasma [address] (Lab), [address] [place], [address], 3 08:47:31 CBC w/ auto diff [address] (Lab), [address] [place], [address], 3 08:58:13 TSH, serum or plasma [address] (Lab), [address] [place], [address], 3 08:58:35 T4, free, serum [address] (Lab), [address] [place], [address], 3 08:58:57 ferritin, serum or plasma [address] (Lab), [address] [place], [address], 3 09:06:55 iron + total iron-bindin g capacity (TIBC), serum [address] (Lab), [address] [place], [address], 3 09:07:16 CBC w/ auto diff [address] (Lab), [address] [place], [address], 3 09:08:35 vitamin B12, serum [address] (Lab), [address] [place], [address], 3 09:05:13 Referral None recorded. Procedures None recorded. Surgeries None recorded. Imaging None recorded. Medication Orders benzonatate 200 mg capsule 2023 024 [facility], [address], [address], 4 08:26:34 amlodipine 10 mg tablet 2023 024 [facility], [address], [address], 4 08:26:33 trazodone 50 mg tablet 2022 023 [facility], [address], [address], 3 08:18:31 amoxicillin 875 mg tablet 2022 023 [email or web address] [facility], [address], [address], 4 07:42:30 Patient TargetsNo targets recorded. Patient Instructions Encounter Date Encounter Id Patient Instructions Last Modified By Organization Details Last Modified Time 04/08/2024 [id number] Thank you for your visit to our office today. We would like to request that you reach out to your referring or previous provider and request that they send us a Summary of Care in electronic form, so that we may have it on file in your medical record. At your visit, we had the medical records we needed to provide you with the best possible care; however, for insurance purposes, an electronic Summary of Care is beneficial. Thank you for your assistance in obtaining this information and we look forward to providing continued care to you. Please review your medication list from the Summary of Care for this visit. If there are any differences from what you are currently taking at home, please call us to discuss. Not available 04/08/2024 08:20:58 Homebound Status : {{Patient has an inability to leave the home without a taxing effort and assistance from another person Does not meet homebound status}} Required Home Health Services: {{none fci, physical therapy, occupational therapy fci, physical therapy fci}} Durable Medical Equipment needed: {{cane walker wal ker with seat manual wheelchair bedsid e commode oxygen}} Billing Guidelines CPT code 31981- Transitional Care Management services with moderate medical decision complexity (isce-ut-qsol visit within 14 days of discharge). CPT code 40510- Transitional Care Management services with high medical decision complexity (arrq-ie-isdh visit within 7 days of discharge). Not available 04/08/2024 08:20:58 Reason for Referral None Reported. Results Created Date Observation Date Name Description Value Unit Range Abnormal Flag Note LastModifiedBy Organization Detail LastModifiedTime 05/05/2005/05/2023 IRON/ TIBC PANEL total iron binding capacity 370 mcg/d L 265-47 5 Not Available [facility] (Lab) [address] [place], [address], 05/05/2023 20:12:31 05/05/2005/05/2023 IRON/ TIBC PANEL % transferrin saturation 32 % 20-55 Not Available [facility] (Lab) [address] [place], [address], 05/05/2023 20:12:31 05/05/2005/05/2023 IRON/ TIBC PANEL unsaturated iron bind capacity 251 mcg/d L 126-38 2 Not Available [facility] (Lab) [address] [place] [address], [address], 05/05/2023 20:12:31 05/05/2005/05/2023 IRON/ TIBC PANEL iron 119 mcg/d L 42-175 Not Available [facility] (Lab) [address] [place], [address], 05/05/2023 20:12:31 05/05/2005/05/2023 BASIC METAB OLIC PANEL sodium 142 mmol/ L 137-14 5 Not Available [facility] (Lab) [address] [place] [address], [address], 05/05/2023 19:57:15 05/05/2005/05/2023 BASIC METAB OLIC PANEL potassium 4.3 mmol/ L 3.5-5. 1 Not Available [facility] (Lab) [address] [place], [address], 05/05/2023 19:57:15 05/05/2005/05/2023 BASIC METAB OLIC PANEL chloride 106 mmol/ L 98-107 Not Available [facility] (Lab) [address] [place], [address], 05/05/2023 19:57:15 05/05/2005/05/2023 BASIC METAB OLIC PANEL carbon dioxide 27 mmol/ L 22-30 Not Available [facility] (Lab) [address] [place], [address], 05/05/2023 19:57:15 05/05/2005/05/2023 BASIC METAB OLIC PANEL anion gap 13.3 mmol/ L 14-22 low Not Available [facility] (Lab) [address] [place], [address], 05/05/2023 19:57:15 05/05/2005/05/2023 BASIC METAB OLIC PANEL glucose 86 mg/dL 70-99 Not Available [facility] (Lab) [address] [place], [address], 05/05/2023 19:57:15 05/05/2005/05/2023 BASIC METAB OLIC PANEL BUN 24 mg/dL 8-19 high Not Available [facility] (Lab) [address] [place], [address], 05/05/2023 19:57:15 05/05/2005/05/2023 BASIC METAB OLIC PANEL creatinine 1.30 mg/dL 0.66-1 .25 high Not Available [facility] (Lab) [address] [place], [address], 05/05/2023 19:57:15 10/1605/05/2023 BASIC METAB OLIC PANEL GFR 40 Refer ence Range : Allen ge GFR Healt hy Adult : >60 mL/mi n/1.7 3 m2 Chron ic Kidne y Disea se: 15-60 mL/mi n/1.7 3 m2 Kidne y Failu re: <15/m L/min /1.73 m2 www.n iddk. nih.g ov The MDRD study equat ion has not been valid ated in child dougie <18 years of age; pregn ant women ; the elder ly >85 years of age; or in some racia l or ethni c subgr oups, such as Hispa nics. Outsi de the valid ated geraldine eters , estim ated GFR is less accur ate, requi ring clini elham judgm ent on a case- by-ca se basis . Clini elham inter preta tion for other races and ages must be made by the clini davina. The MDRD study equat ion has not been valid ated for the evalu ation of serum creat inine relat ed to nutri olga l statu s or medic ation usage . For perso ns <18 years of age, a pedia tric GFR calcu lator is avail able on the [facility] websi te: https :[email or web address] webber.jayden young/ami jacobsenal s/kdo qi/gf r_cal culat or Not Available [facility] (Lab) [address] [place], [address], 05/05/2023 19:57:15 05/05/2005/05/2023 BASIC METAB OLIC PANEL calcium 10.5 mg/dL 8.4-10 .2 high Not Available [facility] (Lab) [address] [place], [address], 05/05/2023 19:57:15 05/05/2005/05/2023 LIPID PANEL cholesterol 211 mg/dL 140-19 9 high NIH JERAD NSUS RECOM MENDA TION FOR SUMAN STERO L: ADULT CHILD LOW RISK: <200 <170 BORDE RLINE : <200- 239 ----- HIGH RISK: >240 >200 Not Available [facility] (Lab) [address] [place], [address], 05/05/2023 19:57:20 05/05/2005/05/2023 LIPID PANEL triglyceride s 350 mg/dL 0-150 high NIH JERAD NSUS REPOR T RECOM MENDA TION FOR TRIGL YCERI OJSEY: ADULT CHILD LOW RISK: <150 ----- BODER LINE: 150-1 99 ----- HIGH RISK: >200 ----- Not Available [facility] (Lab) [address] [place], [address], 05/05/2023 19:57:20 05/05/2005/05/2023 LIPID PANEL HDL cholesterol 57 mg/dL 40- Not Available [facility] (Lab) [address] [place], [address], 05/05/2023 19:57:20 05/05/2005/05/2023 LIPID PANEL LDL cholesterol, calculated 84 mg/dL 0-130 NIH JERAD NSUS REPOR T RECOM MENDA TIONS FOR LDL: ADULT CHILD LOW RISK <130 <110 (OPTI MAL LDL) <100 ----- BORDE RLINE : 130-1 59 ----- HIGH RISK: >160 >130 A TRIGL YCERI DE RESUL T >400 INVAL IDATE S THE CALCU LATIO N FOR LDL FRACT IONAT ION - THE LDL RESUL T WILL NOT BE REPOR RICHAR. Not Available [facility] (Lab) [address] [place], [address], 05/05/2023 19:57:20 05/05/20 23 05/05/2023 HEPAT IC/LI ELLIOT PANEL alkaline phosphatase 59 U/L 38-126 Not Available [facility] (Lab) [address] [place], [address], 05/05/2023 19:57:30 05/05/20 23 05/05/2023 HEPAT IC/LI ELLIOT PANEL alanine aminotransfe rase 17 U/L 0-35 Not Available [facility] (Lab) [address] [place], [address], 05/05/2023 19:57:30 05/05/2005/05/2023 HEPAT IC/LI ELLIOT PANEL aspartate aminotransfe rase 27 U/L 15-37 Not Available [facility] (Lab) [address] [place], [address], 05/05/2023 19:57:30 05/05/20 23 05/05/2023 HEPAT IC/LI ELLIOT PANEL bilirubin, total 0.70 mg/dL 0.20-1 .30 Not Available [facility] (Lab) [address] [place], [address], 05/05/2023 19:57:30 05/05/20 23 05/05/2023 HEPAT IC/LI ELLIOT PANEL bilirubin, conjugated (direct) 0.00 mg/dL 0.00-0 .30 Not Available [facility] (Lab) [address] [place], [address], 05/05/2023 19:57:30 05/05/2005/05/2023 HEPAT IC/LI ELLIOT PANEL biliurubin,u ncong. (indirect) 0.40 mg/dL 0.00-1 .1 Not Available [facility] (Lab) [address] [place], [address], 05/05/2023 19:57:30 05/05/20 23 05/05/2023 HEPAT IC/LI ELLIOT PANEL total protein 9.7 g/dL 6.3-8. 2 high Not Available [facility] (Lab) [address] [place], [address], 05/05/2023 19:57:30 05/05/20 23 05/05/2023 HEPAT IC/LI ELLIOT PANEL albumin 4.9 g/dL 3.0-4. 4 high Not Available [facility] (Lab) [address] [place], [address], 05/05/2023 19:57:30 05/05/20 23 05/05/2023 HEPAT IC/LI ELLIOT PANEL globulin 4.8 g/dL 2.6-4. 2 high Not Available [facility] (Lab) [address] [place], [address], 05/05/2023 19:57:30 05/05/20 23 05/05/2023 HEPAT IC/LI ELLIOT PANEL A/G ratio 1.0 ratio 1.0-2. 0 Not Available [facility] (Lab) [address] [place], [address], 05/05/2023 19:57:30 05/05/20 23 05/05/2023 CBC/C OMPLE TE BLD COUNT W/DIF F white blood cells 7.2 x10'3 /uL 4.2-10 .8 Not Available [facility] (Lab) [address] [place], [address], 05/05/2023 20:00:12 05/05/2005/05/2023 CBC/C OMPLE TE BLD COUNT W/DIF F red blood cells 3.98 x10'6 /uL 3.80-5 .20 Not Available [facility] (Lab) [address] [place], [address], 05/05/2023 20:00:12 05/05/2005/05/2023 CBC/C OMPLE TE BLD COUNT W/DIF F hemoglobin 12.9 g/dL 12.0-1 5.6 Not Available [facility] (Lab) [address] [place], [address], 05/05/2023 20:00:12 05/05/20 23 05/05/2023 CBC/C OMPLE TE BLD COUNT W/DIF F hematocrit 40.8 % 35.7-4 5.7 Not Available [facility] (Lab) [address] [facility], [address], 05/05/2023 20:00:12 05/05/2005/05/2023 CBC/C OMPLE TE BLD COUNT W/DIF F mean red cell volume 102.5 fL 82.0-9 9.0 high Not Available [facility] (Lab) [address] [place], [address], 05/05/2023 20:00:12 05/05/2005/05/2023 CBC/C OMPLE TE BLD COUNT W/DIF F mean red cell hemoglobin 32.4 pg 27.0-3 3.0 Not Available [facility] (Lab) [address] [place], [address], 05/05/2023 20:00:12 05/05/2005/05/2023 CBC/C OMPLE TE BLD COUNT W/DIF F mean RBC HGB concentratio n 31.6 g/dL 31.0-3 6.0 Not Available [facility] (Lab) [address] [place], [address], 05/05/2023 20:00:12 05/05/2005/05/2023 CBC/C OMPLE TE BLD COUNT W/DIF F red cell distribution width 13.2 % 11.8-1 5.5 Not Available [facility] (Lab) [address] [place], [address], 05/05/2023 20:00:12 05/05/20 23 05/05/2023 CBC/C OMPLE TE BLD COUNT W/DIF F platelets 235 x10'3 /uL 150-40 0 Not Available [facility] (Lab) [address] [place], [address], 05/05/2023 20:00:12 05/05/20 23 05/05/2023 CBC/C OMPLE TE BLD COUNT W/DIF F mean platelet volume 11.2 fL 9.0-12 .4 Not Available [facility] (Lab) [address] [place], [address], 05/05/2023 20:00:12 05/05/2005/05/2023 CBC/C OMPLE TE BLD COUNT W/DIF F neutrophils 43.9 % 39.0-7 2.0 Not Available [facility] (Lab) [address] [place], [address], 05/05/2023 20:00:12 05/05/20 23 05/05/2023 CBC/C OMPLE TE BLD COUNT W/DIF F lymphocytes 40.5 % 16.0-4 7.0 Not Available [facility] (Lab) [address] [place], [address], 05/05/2023 20:00:12 05/05/2005/05/2023 CBC/C OMPLE TE BLD COUNT W/DIF F monocytes 8.7 % 5.0-12 .0 Not Available [facility] (Lab) [address] [place], [address], 05/05/2023 20:00:12 05/05/2005/05/2023 CBC/C OMPLE TE BLD COUNT W/DIF F eosinophils 5.8 % 1.0-7. 0 Not Available [facility] (Lab) [address] [place], [address], 05/05/2023 20:00:12 05/05/2005/05/2023 CBC/C OMPLE TE BLD COUNT W/DIF F basophils 0.8 % 0.0-2. 0 Not Available [facility] (Lab) [address] [place], [address], 05/05/2023 20:00:12 05/05/20 23 05/05/2023 CBC/C OMPLE TE BLD COUNT W/DIF F immature granulocytes 0.3 % 0.00-0 .50 Not Available [facility] (Lab) [address] [place], [address], 05/05/2023 20:00:12 05/05/2005/05/2023 CBC/C OMPLE TE BLD COUNT W/DIF F neutrophils, absolute count 3.18 x10'3 /uL 1.5-8. 0 Not Available [facility] (Lab) [address] [place], [address], 05/05/2023 20:00:12 05/05/2005/05/2023 CBC/C OMPLE TE BLD COUNT W/DIF F lymphocytes, absolute count 2.93 x10'3 /uL 1.07-3 .43 Not Available [facility] (Lab) [address] [place], [address], 05/05/2023 20:00:12 05/05/2005/05/2023 CBC/C OMPLE TE BLD COUNT W/DIF F monocytes, absolute count 0.63 x10'3 /uL 0.29-0 .99 Not Available [facility] (Lab) [address] [place], [address], 05/05/2023 20:00:12 05/05/2005/05/2023 CBC/C OMPLE TE BLD COUNT W/DIF F eosinophils, absolute count 0.42 x10'3 /uL 0.02-0 .53 Not Available [facility] (Lab) [address] [place], [address], 05/05/2023 20:00:12 05/05/2005/05/2023 CBC/C OMPLE TE BLD COUNT W/DIF F basophils, absolute count 0.06 x10'3 /uL 0.01-0 .08 Not Available [facility] (Lab) [address] [place], [address], 05/05/2023 20:00:12 05/05/2012 0505/05/2023 CBC/C OMPLE TE BLD COUNT W/DIF F immature granulocytes ,absolute 0.02 x10'3 /uL 0.00-0 .05 Not Available [facility] (Lab) [address] [place], [address], 05/05/2023 20:00:12 05/05/20 23 05/05/2023 CBC/C OMPLE TE BLD COUNT W/DIF F nucleated red blood cells 0.0 % -0 Not Available [facility] (Lab) [address] [place], [address], 05/05/2023 20:00:12 05/05/2005/05/2023 CBC/C OMPLE TE BLD COUNT W/DIF F NRBC# 0.00 x10'3 /uL Not Available [facility] (Lab) [address] [place], [address], 05/05/2023 20:00:12 05/05/2005/05/2023 VITAM IN D 25-HY DROXY vd25oh 49.6 NG/mL 30-100 Vitam in D Statu s: Defic ient: <20 ng/mL Insuf ficie nt: 20-29 ng/mL Suffi cient : 30-10 0 ng/mL Not Available [facility] (Lab) [address] [place], [address], 05/05/2023 20:12:11 05/05/2005/05/2023 T4 FREE free T4 1.39 NG/dL 0.78-2 .19 Not Available [facility] (Lab) [address] [place], [address], 05/05/2023 20:12:20 05/05/2005/05/2023 TSH thyroid-stim ulating hormone 1.040 uIU/m L 0.465- 4.680 Not Available [facility] (Lab) [address] [place], [address], 05/05/2023 20:28:04 05/05/20 23 05/05/2023 ABDIRASHID TIN ferritin 18 NG/mL 11.1-2 64 Not Available [facility] (Lab) [address] [place], [address], 05/05/2023 20:28:24 05/05/20 23 05/05/2023 VITAM IN B12 (CYNTHIA BRUCE ) vb12 509 pg/mL 239-93 1 Not Available [facility] (Lab) [address] [place], [address], 05/05/2023 21:12:55 06/18/20 23 06/18/2023 CBC/C OMPLE TE BLD COUNT W/DIF F white blood cells 5.7 x10'3 /uL 4.2-10 .8 Not Available [facility] (Lab) [address] [place], [address], 06/18/2023 19:45:29 06/18/20 23 06/18/2023 CBC/C OMPLE TE BLD COUNT W/DIF F red blood cells 3.62 x10'6 /uL 3.80-5 .20 low Not Available [facility] (Lab) [address] [place], [address], 06/18/2023 19:45:29 06/18/20 23 06/18/2023 CBC/C OMPLE TE BLD COUNT W/DIF F hemoglobin 11.8 g/dL 12.0-1 5.6 low Not Available [facility] (Lab) [address] [place], [address], 06/18/2023 19:45:29 06/18/20 23 06/18/2023 CBC/C OMPLE TE BLD COUNT W/DIF F hematocrit 37.1 % 35.7-4 5.7 Not Available [facility] (Lab) [address] [place], [address], 06/18/2023 19:45:29 06/18/20 23 06/18/2023 CBC/C OMPLE TE BLD COUNT W/DIF F mean red cell volume 102.5 fL 82.0-9 9.0 high Not Available [facility] (Lab) [address] [place], [address], 06/18/2023 19:45:29 06/18/20 23 06/18/2023 CBC/C OMPLE TE BLD COUNT W/DIF F mean red cell hemoglobin 32.6 pg 27.0-3 3.0 Not Available [facility] (Lab) [address] [place], [address], 06/18/2023 19:45:29 06/18/20 23 06/18/2023 CBC/C OMPLE TE BLD COUNT W/DIF F mean RBC HGB concentratio n 31.8 g/dL 31.0-3 6.0 Not Available [facility] (Lab) [address] [place], [address], 06/18/2023 19:45:29 06/18/20 23 06/18/2023 CBC/C OMPLE TE BLD COUNT W/DIF F red cell distribution width 13.2 % 11.8-1 5.5 Not Available [facility] (Lab) [address] [place], [address], 06/18/2023 19:45:29 06/18/20 23 06/18/2023 CBC/C OMPLE TE BLD COUNT W/DIF F platelets 259 x10'3 /uL 150-40 0 Not Available [facility] (Lab) [address] [place], [address], 06/18/2023 19:45:29 06/18/20 23 06/18/2023 CBC/C OMPLE TE BLD COUNT W/DIF F mean platelet volume 10.5 fL 9.0-12 .4 Not Available [facility] (Lab) [address] [place], [address], 06/18/2023 19:45:29 06/18/20 23 06/18/2023 CBC/C OMPLE TE BLD COUNT W/DIF F neutrophils 42.5 % 39.0-7 2.0 Not Available [facility] (Lab) [address] [place], [address], 06/18/2023 19:45:29 06/18/20 23 06/18/2023 CBC/C OMPLE TE BLD COUNT W/DIF F lymphocytes 39.1 % 16.0-4 7.0 Not Available [facility] (Lab) [address] [place], [address], 06/18/2023 19:45:29 06/18/20 23 06/18/2023 CBC/C OMPLE TE BLD COUNT W/DIF F monocytes 11.2 % 5.0-12 .0 Not Available [facility] (Lab) [address] [place], [address], 06/18/2023 19:45:29 06/18/20 23 06/18/2023 CBC/C OMPLE TE BLD COUNT W/DIF F eosinophils 5.6 % 1.0-7. 0 Not Available [facility] (Lab) [address] [place], [address], 06/18/2023 19:45:29 06/18/20 23 06/18/2023 CBC/C OMPLE TE BLD COUNT W/DIF F basophils 1.4 % 0.0-2. 0 Not Available [facility] (Lab) [address] [place], [address], 06/18/2023 19:45:29 06/18/20 23 06/18/2023 CBC/C OMPLE TE BLD COUNT W/DIF F immature granulocytes 0.2 % 0.00-0 .50 Not Available [facility] (Lab) [address] [facility] [place], [address], 06/18/2023 19:45:29 06/18/20 23 06/18/2023 CBC/C OMPLE TE BLD COUNT W/DIF F neutrophils, absolute count 2.43 x10'3 /uL 1.5-8. 0 Not Available [facility] [address] [facility] [place], [address], 06/18/2023 19:45:29 06/18/20 23 06/18/2023 CBC/C OMPLE TE BLD COUNT W/DIF F lymphocytes, absolute count 2.23 x10'3 /uL 1.07-3 .43 Not Available [facility] (Lab) [address] [place], [address], 06/18/2023 19:45:29 06/18/20 23 06/18/2023 CBC/C OMPLE TE BLD COUNT W/DIF F monocytes, absolute count 0.64 x10'3 /uL 0.29-0 .99 Not Available [facility] (Lab) [address] [place], [address], 06/18/2023 19:45:29 06/18/20 23 06/18/2023 CBC/C OMPLE TE BLD COUNT W/DIF F eosinophils, absolute count 0.32 x10'3 /uL 0.02-0 .53 Not Available [facility] (Lab) [address] [place], [address], 06/18/2023 19:45:29 06/18/20 23 06/18/2023 CBC/C OMPLE TE BLD COUNT W/DIF F basophils, absolute count 0.08 x10'3 /uL 0.01-0 .08 Not Available [facility] (Lab) [address] [place], [address], 06/18/2023 19:45:29 06/18/20 23 06/18/2023 CBC/C OMPLE TE BLD COUNT W/DIF F immature granulocytes ,absolute 0.01 x10'3 /uL 0.00-0 .05 Not Available [facility] (Lab) [address] [place], [address], 06/18/2023 19:45:29 06/18/20 23 06/18/2023 CBC/C OMPLE TE BLD COUNT W/DIF F nucleated red blood cells 0.0 % -0 Not Available [facility] (Lab) [address] [place], [address], 06/18/2023 19:45:29 06/18/20 23 06/18/2023 CBC/C OMPLE TE BLD COUNT W/DIF F NRBC# 0.00 x10'3 /uL Not Available [facility] (Lab) [address] [place], [address], 06/18/2023 19:45:29 06/18/20 23 06/18/2023 IRON/ TIBC PANEL total iron binding capacity 339 mcg/d L 265-47 5 Not Available [facility] (Lab) [address] [place], [address], 06/18/2023 20:22:23 06/18/20 23 06/18/2023 IRON/ TIBC PANEL % transferrin saturation 23 % 20-55 Not Available [facility] (Lab) [address] [place], [address], 06/18/2023 20:22:23 06/18/20 23 06/18/2023 IRON/ TIBC PANEL unsaturated iron bind capacity 261 mcg/d L 126-38 2 Not Available [facility] (Lab) [address] [place], [address], 06/18/2023 20:22:23 06/18/20 23 06/18/2023 IRON/ TIBC PANEL iron 78 mcg/d L 42-175 Not Available [facility] (Lab) [address] [place], [address], 06/18/2023 20:22:23 06/18/20 23 06/18/2023 BASIC METAB OLIC PANEL sodium 142 mmol/ L 137-14 5 Not Available [facility] (Lab) [address] [place], [address], 06/18/2023 20:21:37 06/18/20 23 06/18/2023 BASIC METAB OLIC PANEL potassium 4.2 mmol/ L 3.5-5. 1 Not Available [facility] (Lab) [address] [place], [address], 06/18/2023 20:21:37 06/18/20 23 06/18/2023 BASIC METAB OLIC PANEL chloride 108 mmol/ L 98-107 high Not Available [facility] (Lab) [address] [place], [address], 06/18/2023 20:21:37 06/18/20 23 06/18/2023 BASIC METAB OLIC PANEL carbon dioxide 25 mmol/ L 22-30 Not Available [facility] (Lab) [address] [place], [address], 06/18/2023 20:21:37 06/18/20 23 06/18/2023 BASIC METAB OLIC PANEL anion gap 13.2 mmol/ L 14-22 low Not Available [facility] (Lab) [address] [place], [address], 06/18/2023 20:21:37 06/18/20 23 06/18/2023 BASIC METAB OLIC PANEL glucose 86 mg/dL 70-99 Not Available [facility] (Lab) [address] [place], [address], 06/18/2023 20:21:37 06/18/20 23 06/18/2023 BASIC METAB OLIC PANEL BUN 22 mg/dL 8-19 high Not Available [facility] (Lab) [address] [place], [address], 06/18/2023 20:21:37 06/18/20 23 06/18/2023 BASIC METAB OLIC PANEL creatinine 1.26 mg/dL 0.66-1 .25 high Not Available [facility] (Lab) [address] [place], [address], 06/18/2023 20:21:37 06/18/20 23 06/18/2023 BASIC METAB OLIC PANEL GFR 42 Refer ence Range : Allen ge GFR Healt hy Adult : >60 mL/mi n/1.7 3 m2 Chron ic Kidne y Disea se: 15-60 mL/mi n/1.7 3 m2 Kidne y Failu re: <15/m L/min /1.73 m2 www.n iddk. nih.g ov The MDRD study equat ion has not been valid ated in child dougie <18 years of age; pregn ant women ; the elder ly >85 years of age; or in some racia l or ethni c subgr oups, such as Hisfl nics. Outsi de the valid ated geraldine eters , estim ated GFR is less accur ate, requi ring clini elham judgm ent on a case- by-ca se basis . Clini elham inter preta tion for other races and ages must be made by the clini davina. The MDRD study equat ion has not been valid ated for the evalu ation of serum creat inine relat ed to nutri olga l statu s or medic ation usage . For perso ns <18 years of age, a pedia tric GFR calcu lator is avail able on the [facility] websi te: https ://teresita w.kid lawanda.o rg/pr ofess ional s/kdo qi/gf r_cal culat or Not Available [facility] (Lab) [address] [place], [address], 06/18/2023 20:21:37 06/18/20 23 06/18/2023 BASIC METAB OLIC PANEL calcium 10.4 mg/dL 8.4-10 .2 high Not Available [facility] (Lab) [address] [place], [address], 06/18/2023 20:21:37 06/18/20 23 06/18/2023 LIPID PANEL cholesterol 191 mg/dL 140-19 9 NIH JERAD NSUS RECOM MENDA TION FOR SUMAN STERO L: ADULT CHILD LOW RISK: <200 <170 BORDE RLINE : <200- 239 ----- HIGH RISK: >240 >200 Not Available [facility] (Lab) [address] [place], [address], 06/18/2023 20:21:43 06/18/20 23 06/18/2023 LIPID PANEL triglyceride s 172 mg/dL 0-150 high NIH JERAD NSUS REPOR T RECOM MENDA TION FOR TRIGL YCERI JOSEY: ADULT CHILD LOW RISK: <150 ----- BODER LINE: 150-1 99 ----- HIGH RISK: >200 ----- Not Available [facility] (Lab) [address] [place], [address], 06/18/2023 20:21:43 06/18/20 23 06/18/2023 LIPID PANEL HDL cholesterol 71 mg/dL 40- Not Available [facility] (Lab) [address] [place], [address], 06/18/2023 20:21:43 06/18/20 23 06/18/2023 LIPID PANEL LDL cholesterol, calculated 86 mg/dL 0-130 NIH JERAD NSUS REPOR T RECOM MENDA TIONS FOR LDL: ADULT CHILD LOW RISK <130 <110 (OPTI MAL LDL) <100 ----- BORDE RLINE : 130-1 59 ----- HIGH RISK: >160 >130 A TRIGL YCERI DE RESUL T >400 INVAL IDATE S THE CALCU LATIO N FOR LDL FRACT IONAT ION - THE LDL RESUL T WILL NOT BE REPOR RICHAR. Not Available [facility] (Lab) [address] [place], [address], 06/18/2023 20:21:43 06/18/20 23 06/18/2023 HEPAT IC/LI ELLIOT PANEL alkaline phosphatase 51 U/L 38-126 Not Available [facility] (Lab) [address] [place], [address], 06/18/2023 20:21:44 06/18/20 23 06/18/2023 HEPAT IC/LI ELLIOT PANEL alanine aminotransfe rase 16 U/L 0-35 Not Available [facility] (Lab) [address] [place], [address], 06/18/2023 20:21:44 06/18/20 23 06/18/2023 HEPAT IC/LI ELLIOT PANEL aspartate aminotransfe rase 30 U/L 15-37 Not Available [facility] (Lab) [address] [place], [address], 06/18/2023 20:21:44 06/18/20 23 06/18/2023 HEPAT IC/LI ELLIOT PANEL bilirubin, total 0.90 mg/dL 0.20-1 .30 Not Available [facility] (Lab) [address] [place], [address], 06/18/2023 20:21:44 06/18/20 23 06/18/2023 HEPAT IC/LI ELLIOT PANEL bilirubin, conjugated (direct) 0.00 mg/dL 0.00-0 .30 Not Available [facility] (Lab) [address] [place], [address], 06/18/2023 20:21:44 06/18/20 23 06/18/2023 HEPAT IC/LI ELLIOT PANEL biliurubin,u ncong. (indirect) 0.60 mg/dL 0.00-1 .1 Not Available [facility] (Lab) [address] [place], [address], 06/18/2023 20:21:44 06/18/20 23 06/18/2023 HEPAT IC/LI ELLIOT PANEL total protein 9.2 g/dL 6.3-8. 2 high Not Available [facility] (Lab) [address] [place], [address], 06/18/2023 20:21:44 06/18/20 23 06/18/2023 HEPAT IC/LI ELLIOT PANEL albumin 4.7 g/dL 3.0-4. 4 high Not Available [facility] (Lab) [address] [place], [address], 06/18/2023 20:21:44 06/18/20 23 06/18/2023 HEPAT IC/LI ELLIOT PANEL globulin 4.5 g/dL 2.6-4. 2 high Not Available [facility] (Lab) [address] [place], [address], 06/18/2023 20:21:44 06/18/20 23 06/18/2023 HEPAT IC/LI ELLIOT PANEL A/G ratio 1.0 ratio 1.0-2. 0 Not Available [facility] (Lab) [address] [place], [address], 06/18/2023 20:21:44 06/18/20 23 06/18/2023 VITAM IN D 25-HY DROXY [id number] 51.4 NG/mL 30-100 Vitam in D Statu s: Defic ient: <20 ng/mL Insuf ficie nt: 20-29 ng/mL Suffi cient : 30-10 0 ng/mL Not Available [facility] (Lab) [address] [place], [address], 06/18/2023 20:44:31 06/18/20 23 06/18/2023 VITAM IN B12 (CYNTHIA BRUCE ) vb12 572 pg/mL 239-93 1 Not Available [facility] (Lab) [address] [place], [address], 06/18/2023 22:06:51 06/18/20 23 06/18/2023 T4 FREE free T4 1.54 NG/dL 0.78-2 .19 Not Available [facility] (Lab) [address] [place], [address], 06/18/2023 21:24:55 06/18/20 23 06/18/2023 TSH thyroid-stim ulating hormone 0.690 uIU/m L 0.465- 4.680 Not Available [facility] (Lab) [address] [place], [address], 06/18/2023 21:26:45 06/18/20 23 06/18/2023 ABDIRASHID TIN ferritin 18 NG/mL 11.1-2 64 Not Available [facility] (Lab) [address] [place], [address], 06/18/2023 21:46:25 10/21/19 24 10/21/2023 CBC/C OMPLE TE BLD COUNT W/DIF F white blood cells 8.4 x10'3 /uL 4.2-10 .8 Not Available [facility] (Lab) [address] [place], [address], 10/21/2023 20:06:32 10/21/19 24 10/21/2023 CBC/C OMPLE TE BLD COUNT W/DIF F red blood cells 3.40 x10'6 /uL 3.80-5 .20 low Not Available [facility] (Lab) [address] [place], [address], 10/21/2023 20:06:32 10/21/19 24 10/21/2023 CBC/C OMPLE TE BLD COUNT W/DIF F hemoglobin 11.1 g/dL 12.0-1 5.6 low Not Available [facility] (Lab) [address] [place], [address], 10/21/2023 20:06:32 10/21/19 24 10/21/2023 CBC/C OMPLE TE BLD COUNT W/DIF F hematocrit 34.3 % 35.7-4 5.7 low Not Available [facility] (Lab) [address] [place], [address], 10/21/2023 20:06:32 10/21/19 24 10/21/2023 CBC/C OMPLE TE BLD COUNT W/DIF F mean red cell volume 100.9 fL 82.0-9 9.0 high Not Available [facility] (Lab) [address] [place], [address], 10/21/2023 20:06:32 10/21/19 24 10/21/2023 CBC/C OMPLE TE BLD COUNT W/DIF F mean red cell hemoglobin 32.6 pg 27.0-3 3.0 Not Available [facility] (Lab) [address] [place], [address], 10/21/2023 20:06:32 10/21/19 24 10/21/2023 CBC/C OMPLE TE BLD COUNT W/DIF F mean RBC HGB concentratio n 32.4 g/dL 31.0-3 6.0 Not Available [facility] (Lab) [address] [place], [address], 10/21/2023 20:06:32 10/21/19 24 10/21/2023 CBC/C OMPLE TE BLD COUNT W/DIF F red cell distribution width 13.9 % 11.8-1 5.5 Not Available [facility] (Lab) [address] [place], [address], 10/21/2023 20:06:32 10/21/19 24 10/21/2023 CBC/C OMPLE TE BLD COUNT W/DIF F platelets 385 x10'3 /uL 150-40 0 Not Available [facility] (Lab) [address] [place], [address], 10/21/2023 20:06:32 10/21/19 24 10/21/2023 CBC/C OMPLE TE BLD COUNT W/DIF F mean platelet volume 10.4 fL 9.0-12 .4 Not Available [facility] (Lab) [address] [place], [address], 10/21/2023 20:06:32 10/21/19 24 10/21/2023 CBC/C OMPLE TE BLD COUNT W/DIF F neutrophils 57.1 % 39.0-7 2.0 Not Available [facility] (Lab) [address] [place], [address], 10/21/2023 20:06:32 10/21/19 24 10/21/2023 CBC/C OMPLE TE BLD COUNT W/DIF F lymphocytes 30.1 % 16.0-4 7.0 Not Available [facility] (Lab) [address] [place], [address], 10/21/2023 20:06:32 10/21/19 24 10/21/2023 CBC/C OMPLE TE BLD COUNT W/DIF F monocytes 8.1 % 5.0-12 .0 Not Available [facility] (Lab) [address] [place], [address], 10/21/2023 20:06:32 10/21/19 24 10/21/2023 CBC/C OMPLE TE BLD COUNT W/DIF F eosinophils 3.3 % 1.0-7. 0 Not Available [facility] (Lab) [address] [place], [address], 10/21/2023 20:06:32 10/21/19 24 10/21/2023 CBC/C OMPLE TE BLD COUNT W/DIF F basophils 0.7 % 0.0-2. 0 Not Available [facility] (Lab) [address] [place], [address], 10/21/2023 20:06:32 04/02/20 24 10/21/2023 CBC/C OMPLE TE BLD COUNT W/DIF F immature granulocytes 0.7 % 0.00-0 .50 high Not Available [facility] (Lab) [address] [place], [address], 10/21/2023 20:06:32 10/21/19 24 10/21/2023 CBC/C OMPLE TE BLD COUNT W/DIF F neutrophils, absolute count 4.81 x10'3 /uL 1.5-8. 0 Not Available [facility] (Lab) [address] [place], [address], 10/21/2023 20:06:32 10/21/19 24 10/21/2023 CBC/C OMPLE TE BLD COUNT W/DIF F lymphocytes, absolute count 2.54 x10'3 /uL 1.07-3 .43 Not Available [facility] (Lab) [address] [place], [address], 10/21/2023 20:06:32 10/21/19 24 10/21/2023 CBC/C OMPLE TE BLD COUNT W/DIF F monocytes, absolute count 0.68 x10'3 /uL 0.29-0 .99 Not Available [facility] (Lab) [address] [place], [address], 10/21/2023 20:06:32 10/21/19 24 10/21/2023 CBC/C OMPLE TE BLD COUNT W/DIF F eosinophils, absolute count 0.28 x10'3 /uL 0.02-0 .53 Not Available [facility] (Lab) [address] [place], [address], 10/21/2023 20:06:32 10/21/19 24 10/21/2023 CBC/C OMPLE TE BLD COUNT W/DIF F basophils, absolute count 0.06 x10'3 /uL 0.01-0 .08 Not Available [facility] (Lab) [address] [place], [address], 10/21/2023 20:06:32 10/21/19 24 10/21/2023 CBC/C OMPLE TE BLD COUNT W/DIF F immature granulocytes ,absolute 0.06 x10'3 /uL 0.00-0 .05 high Not Available [facility] (Lab) [address] [place], [address], 10/21/2023 20:06:32 10/21/19 24 10/21/2023 CBC/C OMPLE TE BLD COUNT W/DIF F nucleated red blood cells 0.0 % -0 Not Available [facility] (Lab) [address] [place], [address], 10/21/2023 20:06:32 10/21/19 24 10/21/2023 CBC/C OMPLE TE BLD COUNT W/DIF F NRBC# 0.00 x10'3 /uL Not Available [facility] (Lab) [address] [place], [address], 10/21/2023 20:06:32 10/21/19 24 10/21/2023 URINA LYSIS COMPL ETE/I RIS W/RFX color LIGHT- YELLOW Not Available [facility] (Lab) [address] [place], [address], 10/21/2023 20:53:41 10/21/19 24 10/21/2023 URINA LYSIS COMPL ETE/I RIS W/RFX appear EXTRA TURBID abnormal Not Available [facility] (Lab) [address] [place], [address], 10/21/2023 20:53:41 10/21/19 24 10/21/2023 URINA LYSIS COMPL ETE/I RIS W/RFX specific gravity 1.019 1.001- 1.030 Not Available [facility] (Lab) [address] [place], [address], 10/21/2023 20:53:41 10/21/19 24 10/21/2023 URINA LYSIS COMPL ETE/I RIS W/RFX pH 5.0 pH_un its 5.0-9. 0 Not Available [facility] (Lab) [address] [place], [address], 10/21/2023 20:53:41 10/21/19 24 10/21/2023 URINA LYSIS COMPL ETE/I RIS W/RFX leukocytes NEGATI VE robles/u L negati ve- Not Available [facility] (Lab) [address] [place], [address], 10/21/2023 20:53:41 10/21/19 24 10/21/2023 URINA LYSIS COMPL ETE/I RIS W/RFX nitrite NEGATI VE negati ve- Not Available [facility] (Lab) [address] [place], [address], 10/21/2023 20:53:41 10/21/19 24 10/21/2023 URINA LYSIS COMPL ETE/I RIS W/RFX protein NEGATI VE mg/dL negati ve- Not Available [facility] (Lab) [address] [place], [address], 10/21/2023 20:53:41 10/21/19 24 10/21/2023 URINA LYSIS COMPL ETE/I RIS W/RFX glucose NORMAL mg/dL normal - Not Available [facility] (Lab) [address] [place], [address], 10/21/2023 20:53:41 10/21/19 24 10/21/2023 URINA LYSIS COMPL ETE/I RIS W/RFX ketones NEGATI VE mg/dL negati ve- Not Available [facility] (Lab) [address] [place], [address], 10/21/2023 20:53:41 10/21/19 24 10/21/2023 URINA LYSIS COMPL ETE/I RIS W/RFX urobilinogen NORMAL mg/dL normal - Not Available [facility] (Lab) [address] [place], [address], 10/21/2023 20:53:41 10/21/19 24 10/21/2023 URINA LYSIS COMPL ETE/I RIS W/RFX bilirubin NEGATI VE mg/dL negati ve- Not Available [facility] (Lab) [address] [place], [address], 10/21/2023 20:53:41 10/21/19 24 10/21/2023 URINA LYSIS COMPL ETE/I RIS W/RFX blood NEGATI VE mg/dL negati ve- Not Available [facility] (Lab) [address] [place], [address], 10/21/2023 20:53:41 10/21/19 24 10/21/2023 URINA LYSIS COMPL ETE/I RIS W/RFX white blood cells 0-8 /i??h pfi?? 0-8 Not Available [facility] (Lab) [address] [place], [address], 10/21/2023 20:53:41 10/21/19 24 10/21/2023 URINA LYSIS COMPL ETE/I RIS W/RFX red blood cells 0-4 /i??h pfi?? 0-4 Not Available [facility] (Lab) [address] [place], [address], 10/21/2023 20:53:41 10/21/19 24 10/21/2023 URINA LYSIS COMPL ETE/I RIS W/RFX bacteria NONE Not Available [facility] (Lab) [address] [place], [address], 10/21/2023 20:53:41 10/21/19 24 10/21/2023 URINA LYSIS COMPL ETE/I RIS W/RFX mucous OCCASI ONAL /i??l pfi?? abnormal Not Available [facility] (Lab) [address] [place], [address], 10/21/2023 20:53:41 10/21/19 24 10/21/2023 URINA LYSIS COMPL ETE/I RIS W/RFX squamous epithelial PACKED FIELD /i??l pfi?? abnormal Not Available [facility] (Lab) [address] [place], [address], 10/21/2023 20:53:41 10/21/19 24 10/21/2023 URINA LYSIS COMPL ETE/I RIS W/RFX hyaline cast OCCASI ONAL /i??l pfi?? none seen- abnormal Not Available [facility] (Lab) [address] [place], [address], 10/21/2023 20:53:41 10/21/19 24 10/21/2023 VITAM IN D 25-HY DROXY [id number] 56.9 NG/mL 30-100 Vitam in D Statu s: Defic ient: <20 ng/mL Insuf ficie nt: 20-29 ng/mL Suffi cient : 30-10 0 ng/mL Not Available [facility] (Lab) [address] [place], [address], 10/21/2023 22:08:30 10/21/19 24 10/21/2023 VITAM IN B12 (CYNTHIA BRUCE ) vb12 >1000 pg/mL 239-93 1 high Not Available [facility] (Lab) [address] [place], [address], 10/21/2023 22:14:54 10/21/19 24 10/21/2023 IRON/ TIBC PANEL total iron binding capacity 260 mcg/d L 265-47 5 low Not Available [facility] (Lab) [address] [place], [address], 10/21/2023 22:19:49 10/21/19 24 10/21/2023 IRON/ TIBC PANEL % transferrin saturation 30 % 20-55 Not Available [facility] (Lab) [address] [place], [address], 10/21/2023 22:19:49 10/21/19 24 10/21/2023 IRON/ TIBC PANEL unsaturated iron bind capacity 182 mcg/d L 126-38 2 Not Available [facility] (Lab) [address] [place], [address], 10/21/2023 22:19:49 10/21/19 24 10/21/2023 IRON/ TIBC PANEL iron 78 mcg/d L 42-175 Not Available [facility] (Lab) [address] [place], [address], 10/21/2023 22:19:49 10/21/19 24 10/21/2023 BASIC METAB OLIC PANEL sodium 141 mmol/ L 137-14 5 Not Available [facility] (Lab) [address] [place], [address], 10/21/2023 22:19:15 10/21/19 24 10/21/2023 BASIC METAB OLIC PANEL potassium 4.7 mmol/ L 3.5-5. 1 Not Available [facility] (Lab) [address] [place], [address], 10/21/2023 22:19:15 10/21/19 24 10/21/2023 BASIC METAB OLIC PANEL chloride 110 mmol/ L 98-107 high Not Available [facility] (Lab) [address] [place], [address], 10/21/2023 22:19:15 10/21/19 24 10/21/2023 BASIC METAB OLIC PANEL carbon dioxide 24 mmol/ L 22-30 Not Available [facility] (Lab) [address] [place], [address], 10/21/2023 22:19:15 10/21/19 24 10/21/2023 BASIC METAB OLIC PANEL anion gap 11.7 mmol/ L 14-22 low Not Available [facility] (Lab) [address] [place], [address], 10/21/2023 22:19:15 10/21/19 24 10/21/2023 BASIC METAB OLIC PANEL glucose 104 mg/dL 70-99 high Not Available [facility] (Lab) [address] [place], [address], 10/21/2023 22:19:15 10/21/19 24 10/21/2023 BASIC METAB OLIC PANEL BUN 25 mg/dL 8-19 high Not Available [facility] (Lab) [address] [place], [address], 10/21/2023 22:19:15 10/21/19 24 10/21/2023 BASIC METAB OLIC PANEL creatinine 1.27 mg/dL 0.66-1 .25 high Not Available [facility] (Lab) [address] [place], [address], 10/21/2023 22:19:15 10/21/19 24 10/21/2023 BASIC METAB OLIC PANEL GFR 41 Refer ence Range : Allen ge GFR Healt hy Adult : >60 mL/mi n/1.7 3 m2 Chron ic Kidne y Disea se: 15-60 mL/mi n/1.7 3 m2 Kidne y Failu re: <15/m L/min /1.73 m2 www.n iddk. nih.g ov The MDRD study equat ion has not been valid ated in child dougie <18 years of age; pregn ant women ; the elder ly >85 years of age; or in some racia l or ethni c subgr oups, such as Hispa nics. Outsi de the valid ated geraldine eters , estim ated GFR is less accur ate, requi ring clini elham judgm ent on a case- by-ca se basis . Clini elham inter preta tion for other races and ages must be made by the clini davina. The MDRD study equat ion has not been valid ated for the evalu ation of serum creat inine relat ed to nutri olga l statu s or medic ation usage . For perso ns <18 years of age, a pedia tric GFR calcu lator is avail able on the [facility] websi te: https ://ww w.kid lawanda.o rg/pr ofess ional s/kdo qi/gf r_cal culat or Not Available [facility] (Lab) [address] [place], [address], 10/21/2023 22:19:15 10/21/19 24 10/21/2023 BASIC METAB OLIC PANEL calcium 9.7 mg/dL 8.4-10 .2 Not Available [facility] (Lab) [address] [place], [address], 10/21/2023 22:19:15 10/21/19 24 10/21/2023 LIPID PANEL cholesterol 167 mg/dL 140-19 9 NIH JERAD NSUS RECOM MENDA TION FOR SUMAN STERO L: ADULT CHILD LOW RISK: <200 <170 BORDE RLINE : <200- 239 ----- HIGH RISK: >240 >200 Not Available [facility] (Lab) [address] [place], [address], 10/21/2023 22:19:17 10/21/19 24 10/21/2023 LIPID PANEL triglyceride s 234 mg/dL 0-150 high NIH JERAD NSUS REPOR T RECOM MENDA TION FOR TRIGL YCERI JOSEY: ADULT CHILD LOW RISK: <150 ----- BODER LINE: 150-1 99 ----- HIGH RISK: >200 ----- Not Available [facility] (Lab) [address] [place], [address], 10/21/2023 22:19:17 10/21/19 24 10/21/2023 LIPID PANEL HDL cholesterol 51 mg/dL 40- Not Available [facility] (Lab) [address] [place], [address], 10/21/2023 22:19:17 10/21/19 24 10/21/2023 LIPID PANEL LDL cholesterol, calculated 69 mg/dL 0-130 NIH JERAD NSUS REPOR T RECOM MENDA TIONS FOR LDL: ADULT CHILD LOW RISK <130 <110 (OPTI MAL LDL) <100 ----- BORDE RLINE : 130-1 59 ----- HIGH RISK: >160 >130 A TRIGL YCERI DE RESUL T >400 INVAL IDATE S THE CALCU LATIO N FOR LDL FRACT IONAT ION - THE LDL RESUL T WILL NOT BE REPOR RICHAR. Not Available [facility] (Lab) [address] [place], [address], 10/21/2023 22:19:17 10/21/19 24 10/21/2023 HEPAT IC/LI ELLIOT PANEL alkaline phosphatase 73 U/L 38-126 Not Available [facility] (Lab) [address] [place], [address], 10/21/2023 22:19:19 10/21/19 24 10/21/2023 HEPAT IC/LI ELLIOT PANEL alanine aminotransfe rase 18 U/L 0-35 Not Available [facility] (Lab) [address] [place], [address], 10/21/2023 22:19:19 10/21/19 24 10/21/2023 HEPAT IC/LI ELLIOT PANEL aspartate aminotransfe rase 31 U/L 15-37 Not Available [facility] (Lab) [address] [place], [address], 10/21/2023 22:19:19 10/21/19 24 10/21/2023 HEPAT IC/LI ELLIOT PANEL bilirubin, total 0.40 mg/dL 0.20-1 .30 Not Available [facility] (Lab) [address] [place], [address], 10/21/2023 22:19:19 10/21/19 24 10/21/2023 HEPAT IC/LI ELLIOT PANEL bilirubin, conjugated (direct) 0.00 mg/dL 0.00-0 .30 Not Available [facility] (Lab) [address] [place], [address], 10/21/2023 22:19:19 10/21/19 24 10/21/2023 HEPAT IC/LI ELLIOT PANEL biliurubin,u ncong. (indirect) 0.10 mg/dL 0.00-1 .1 Not Available [facility] (Lab) [address] [place], [address], 10/21/2023 22:19:19 10/21/19 24 10/21/2023 HEPAT IC/LI ELLIOT PANEL total protein 8.3 g/dL 6.3-8. 2 high Not Available [facility] (Lab) [address] [place], [address], 10/21/2023 22:19:19 10/21/19 24 10/21/2023 HEPAT IC/LI ELLIOT PANEL albumin 4.1 g/dL 3.0-4. 4 Not Available [facility] (Lab) [address] [place], [address], 10/21/2023 22:19:19 10/21/19 24 10/21/2023 HEPAT IC/LI ELLIOT PANEL globulin 4.2 g/dL 2.6-4. 2 Not Available [facility] (Lab) [address] [place], [address], 10/21/2023 22:19:19 10/21/19 24 10/21/2023 HEPAT IC/LI ELLIOT PANEL A/G ratio 1.0 ratio 1.0-2. 0 Not Available [facility] (Lab) [address] [place], [address], 10/21/2023 22:19:19 10/21/19 24 10/21/2023 T4 FREE free T4 1.60 NG/dL 0.78-2 .19 Not Available [facility] (Lab) [address] [place], [address], 10/21/2023 22:28:06 10/21/19 24 10/21/2023 TSH thyroid-stim ulating hormone 0.203 uIU/m L 0.465- 4.680 low Not Available [facility] (Lab) [address] [place], [address], 10/21/2023 22:28:16 10/21/19 24 10/21/2023 ABDIRASHID TIN ferritin 57 NG/mL 11.1-2 64 Not Available [facility] (Lab) [address] [place], [address], 10/21/2023 22:28:36 05/06/20 23 05/06/2023 XR, chest , 2 view No observ ation record ed. [email or web address] [address], [address], 05/20/2023 13:25:21 10/10/19 24 10/10/2023 US, duple x, carot id arter y No observ ation record ed. [email or web address] [address], [address], 10/21/2023 12:08:19 05/09/20 24 05/09/2024 CT, abdom en + pelvi s, w/ contr ast No observ ation record ed. [email or web address] [address], [address], 05/11/2024 08:36:14 Result Notes None recorded. Problems Name Problem SNOMED Code Status Onset Date Resolution Date Notes Provider Name and Address Organization Details Recorded Time Suprapubic pain 143365124 Active 2018 Not Available [facility] 3 01:04:31 Cobalamin deficiency 200609962 Active 2019 Not Available [facility] 3 01:04:31 Abdominal pain 82165309 Active 2017 Not Available [facility] 3 01:04:31 Gastroesop hageal reflux disease 142272439 Active 2017 Not Available [facility] 3 01:04:31 Renal impairment 005069681 Active 2017 Not Available [facility] 3 01:04:31 Hypertensi ve disorder 80103942 Completed 201505/02/2021 Not Available [facility] 3 01:04:31 Squamous cell carcinoma 432371792 Active 2018 bx 2 Not Available [facility] 3 01:04:31 Hypothyroi dism 79439276 Active 2016 Not Available [facility] 3 01:04:32 Hyperlipid emia 96328371 Active 2015 Not Available [facility] 3 01:04:32 Essential hypertensi on 56296068 Active 2020 Not Available [facility] 3 01:04:32 Acute situationa l disturbanc e 793414087 Active 2022 Rea Yuen MD [address], [address], [place], [address] , [employer] [facility] [employer] [facility] 3 09:09:15 Iron deficiency anemia 58346113 Active 2022 Rea Yuen MD [address], [address], [place], [address] , [employer] [facility] [employer] [facility] 3 09:11:43 Vitamin D deficiency 99808174 Active 2022 Rea Yuen MD [address], [address], [place], [address] , [facility] [employer] [facility] [employer] [facility] 3 09:11:52 Coronary arterioscl erosis 91052231 Active 2022 Rea Yuen MD [address], [address], [place], [address] , [place] [facility] 3 09:12:03 Gastroesop hageal reflux disease without esophagiti s 605733921 Active 2022 Rea Yuen MD [address], [address], [place], [address] , [place] [facility] 3 09:12:08 Backache 088206370 Active 2022 [employer] [place] [address], [address], [place], [address] , [place] [facility] 3 13:33:13 Upper respirator y infection 84362141 Active 2022 SILVESTRE [place] [address], [address], [place], [address] , [place] [facility] 3 12:33:50 Rib pain 687712786 Active 2022 Rea Yuen MD [address], [address], [place], [address] , [employer] [facility] 3 13:39:46 Acute sinusitis 68239059 Active 2022 Rea Yuen MD [address], [address], [place], [address] , [place] [facility] 3 08:10:04 Insomnia 672241003 Active 2022 Rea Yuen MD [address], [address], [place], [address] , [place] [facility] 3 08:17:14 COVID-19 667976106 Active 2023 Rea Yuen MD [address], [address], [place], [address] , [place] [facility] 4 09:31:12 Blood in urine 90007327 Active 2023 Rea Yuen MD [address] [facility], [address], [place], [address] , [facility] [employer] 11:42:19 Cough [id number] Active 2023 Rea Yuen MD [address], [address], [place], [address] , [facility] 11:35:57 Problem Notes None recorded. Procedures Surgical History Date Name Laterality Status Provider Name and Address Organization Details Recorded Time 04/08/20 Transitional_Ca re_Management completed ELO Johnson [address] [facility], [facility] [address], [place], [address], [facility] 04/08/2024 08:21:56 12/03/19 Medicare Wellness CPT Code, subsequent completed Shyann Moreau RN [facility] [employer] [facility] 11/29/2022 15:34:46 12/03/19 23 Advanced Care Planning completed Shyann Moreau RN [facility] [employer] 11/29/2022 15:35:56 04/03/20 20 colonoscopy completed Not Available [facility] 09/19/19 00:52:48 Imaging Results Imaging Date Name Status LastModified by Organiz ation Details LastModified Time 05/06/2023 XR, chest, 2 view completed [email or web address] [address], [address], 05/20/2023 13:25:21 10/10/2023 US, duplex, carotid artery completed [email or web address] [address], [address], 10/21/2023 12:08:19 05/09/2024 CT, abdomen + pelvis, w/ contrast completed [email or web address] [address], [address], 05/11/2024 08:36:14 Procedure Notes None recorded. Medical Equipment None Reported. Allergies Allergen ID Allergen Name Allergen Category Reaction Reaction Severity Criticality Documentation Date Start Date Code Code System Note Provider Name and Address Organization Details Recorded Time 2146 Substance with sulfonami de structure and antibacte rial mechanism of action (substanc e) medicatio n other moderate Not available 09/18/2022 [id number] SNOMED Not Available [facility] 3 01:22:39 Medications Name Sig Start Date Stop Date Status Note LastModified by Organization Details LastModified Time losartan 50 mg tablet 07/24 completed Not Available Not Available Not Available atorvasta tin 40 mg tablet Take 1 tablet every day by oral route. 05/01 completed Not Available Not Available Not Available buspirone 5 mg tablet TAKE 1 TABLET BY MOUTH TWICE DAILY NEEDED FOR STRESS active Not Available Not Available No t Available Augmentin 875 mg-125 mg tablet Take 1 tablet every 12 hours by oral route for 10 days. 08/21 completed Not Available Not Available Not Available enalapril maleate 10 mg tablet Take 1 tablet every day by oral route. active Not Available Not Available No t Available clindamyc in HCl 300 mg capsule Take 1 capsule 3 times a day by oral route for 7 days. active Not Available Not Available No t Available trazodone 50 mg tablet TAKE 1 TABLET BY MOUTH NIGHTLY NEEDED FOR SLEEP active Not Available Not Available No t Available enalapril maleate 5 mg tablet TAKE 1 2 (ONE HALF) TABLET BY MOUTH ONCE DAILY active Not Available Not Available No t Available azithromy melani 250 mg tablet TAKE 2 TABLETS BY MOUTH ON DAY 1, AND THEN TAKE 1 TABLET BY MOUTH ONCE A DAY ON DAY 2 THROUGH DAY 5 06/18 completed Not Available Not Available Not Available benzonata te 200 mg capsule Take 1 capsule 3 times a day by oral route as needed. 2023 active Not Available Not Available Not Avai lable hydrocodo ne 5 mg-acetam inophen 325 mg tablet Take 1 tablet every 12 hours by oral route as needed. active Not Available Not Available No t Available enalapril maleate 20 mg tablet TAKE 1 TABLET BY MOUTH ONCE DAILY active Not Available Not Available No t Available prednison e 20 mg tablet TAKE 1 TABLET BY MOUTH ONCE DAILY FOR 3 DAYS 06/18 completed Not Available Not Available Not Available isosorbid e mononitra te ER 30 mg tablet,ex tended release 24 hr 12/22 completed Not Available Not Available Not Available enalapril maleate 2.5 mg tablet 04/19 completed Not Available Not Available Not Available fluoroura cil 5 % topical cream APPLY CREAM TOPICALL Y TO AFFECTED AREA ON LEFT UPPER ARM TWICE DAILY FOR 6 WEEKS active Not Available Not Available No t Available Anucort-H C 25 mg supposito ry INSERT 1 SUPPOSIT ORY RECTALLY TWICE DAILY FOR 10 DAYS active Not Available Not Available No t Available cyanocoba bruce (vit B-12) 1,000 mcg tablet 1 sl qday active Not Available Not Available No t Available amlodipin e 2.5 mg tablet 2 po qday MK 06/18/2307/07 completed Not Available Not Available Not Available clopidogr el 75 mg tablet TAKE 1 TABLET BY MOUTH ONCE DAILY active Not Available Not Available No t Available ciproflox acin 250 mg tablet Take 1 tablet every 12 hours by oral route for 3 days. active Not Available Not Available No t Available amlodipin e 5 mg tablet TAKE 1 TABLET BY MOUTH ONCE DAILY active Not Available Not Available No t Available valacyclo vir 500 mg tablet 05/01 completed Not Available Not Available Not Available omeprazol e 40 mg capsule,d elayed release TAKE 1 CAPSULE BY MOUTH ONCE DAILY active Not Available Not Available No t Available triamcino lone acetonide 0.1 % topical cream APPLY A THIN LAYER TO THE AFFECTED AREA(S) BY TOPICAL ROUTE 2 TIMES PER DAY prn 05/01 completed Not Available Not Available Not Available levothyro xine 25 mcg tablet 05/14 completed Not Available Not Available Not Available levothyro xine 75 mcg tablet TAKE ONE TABLET BY MOUTH ONCE DAILY active Not Available Not Available No t Available meloxicam 7.5 mg tablet active Not Available Not Available Not Available levothyro xine 100 mcg tablet Take 1 tablet every day by oral route. 01/23 completed decrease d to 50mcg Not Available Not Available Not Available isosorbid e mononitra te ER 60 mg tablet,ex tended release 24 hr 04/19 completed Not Available Not Available Not Available levothyro xine 88 mcg tablet Take 1 tablet every day by oral route. 05/01 completed Not Available Not Available Not Available amoxicill in 875 mg tablet TAKE 1 TABLET BY MOUTH EVERY 12 HOURS FOR 7 DAYS active Not Available Not Available No t Available amlodipin e 10 mg tablet Take 1 tablet every day by oral route. active Not Available Not Available No t Available benzonata te 100 mg capsule TAKE 1 CAPSULE BY MOUTH THREE TIMES DAILY NEEDED FOR COUGH active Not Available Not Available No t Available levothyro xine 50 mcg tablet TAKE 1 TABLET BY MOUTH ONCE DAILY ON FRIDAY, , AND FRIDAY active Not Available Not Available No t Available pantopraz ole 40 mg tablet,de layed release TAKE 1 TABLET BY MOUTH ONCE DAILY active Not Available Not Available No t Available cyanocoba bruce (vit B-12) 1,000 mcg/mL injection solution Inject 1 mL every month by subcutan eous route. 09/02 completed Pt asked for her butt to be squeezed for her b12 injectio n. Not Available Not Available Not Available triamcino lone acetonide 0.1 % topical ointment APPLY A THIN LAYER TO THE AFFECTED AREA(S) BY TOPICAL ROUTE 2 TIMES PER DAY as needed for 7 days active Not Available Not Available No t Available ranitidin e 150 mg tablet TAKE ONE TABLET BY MOUTH TWICE DAILY 12/22 completed Not Available Not Available Not Available warfarin 2 mg tablet 05/14 completed Not Available Not Available Not Available promethaz ine 25 mg tablet 05/14 completed Not Available Not Available Not Available nitroglyc neris 0.4 mg sublingua l tablet DISSOLVE ONE TABLET UNDER THE TONGUE EVERY 5 MINUTES NEEDED FOR CHEST PAIN. DO NOT EXCEED A TOTAL OF 3 DOSES IN 15 MINUTES active Not Available Not Available No t Available omeprazol e 20 mg capsule,d elayed release Take 1 capsule every day by oral route. 07/24 completed Not Available Not Available Not Available pravastat in 20 mg tablet 05/14 completed Not Available Not Available Not Available metoprolo l succinate ER 25 mg tablet,ex tended release 24 hr 04/19 completed Not Available Not Available Not Available Cheratuss in AC 10 mg-100 mg/5 mL oral liquid 5-10 ml po q4-6 hours prn cough 11/10 completed Not Available Not Available Not Available estradiol 0.01% (0.1 mg/gram) vaginal cream APPLY 1/4 APPLICAT OR (1 GRAM) TO THE VAGINA TWICE WEEKLY active Not Available Not Available No t Available ondansetr on 4 mg disintegr ating tablet DISSOLVE 1 TABLET IN MOUTH EVERY 8 HOURS NEEDED active Not Available Not Available No t Available fluticaso ne propionat e 50 mcg/actua tion nasal spray,marcela pension USE 1 SPRAY(S) IN EACH NOSTRIL ONCE DAILY active Not Available Not Available No t Available clotrimaz ole 1 % topical cream 05/14 completed Not Available Not Available Not Available sertralin e 50 mg tablet TAKE 1 TABLET BY MOUTH IN THE MORNING active Not Available Not Available No t Available Ventolin HFA 90 mcg/actua tion aerosol inhaler Inhale 2 puffs every 4 hours by inhalati on route. 05/18 completed Not Available Not Available Not Available esomepraz ole magnesium 20 mg capsule,d elayed release Take 1 capsule every day by oral route. 07/24 completed Not Available Not Available Not Available cyclobenz aprine 5 mg tablet TAKE 1 TABLET BY MOUTH THREE TIMES DAILY NEEDED FOR MUSCLE SPASM active Not Available Not Available No t Available rosuvasta tin 20 mg tablet TAKE 1 TABLET BY MOUTH ONCE DAILY active Not Available Not Available No t Available rosuvasta tin 40 mg tablet TAKE 1 TABLET BY MOUTH ONCE DAILY active Not Available Not Available No t Available bupropion HCl XL 150 mg 24 hr tablet, extended release Take 1 tablet every day by oral route. active Not Available Not Available No t Available escitalop sebastián 5 mg tablet Take 1 tablet every day by oral route. active Not Available Not Available No t Available nitrofura ntoin monohydra te/macroc rystals 100 mg capsule Take 1 capsule every 12 hours by oral route for 7 days. active Not Available Not Available No t Available Symbicort 80 mcg-4.5 mcg/actua tion HFA aerosol inhaler Inhale 1 puff twice a day by inhalati on route for 14 days. 11/10 completed Not Available Not Available Not Available cholecalc iferol (vitamin D3) 1,250 mcg (50,000 unit) capsule TAKE 1 CAPSULE BY MOUTH ONCE A WEEK 12/27 completed Not Available Not Available Not Available diclofena c 1 % topical gel active Not Available Not Available Not Available GaviLyte- N 420 gram oral solution 05/14 completed Not Available Not Available Not Available Dexilant 60 mg capsule, delayed release Take 1 capsule every day by oral route for 15 days. 12/22 completed Not Available Not Available Not Available Suprep Bowel Prep Kit 17.5 gram-3.13 gram-1.6 gram oral solution USE DIRECTED active Not Available Not Available No t Available Adult Aspirin Regimen 81 mg tablet,de layed release Take 1 tablet every day by oral route. 2019 active Not Available Not Available Not Avai lable Xarelto 2.5 mg tablet TAKE 1 TABLET BY MOUTH TWICE DAILY active Not Available Not Available No t Available Paxlovid 150 mg-100 mg tablets in a dose pack (Moderate Renal Dose) TAKE 2 TABLETS TOGETHER (ONE 150 MG NIRMATRE LVIR TABLETS AND ONE 100 MG RITONAVI R TABLET) BY MOUTH TWICE DAILY FOR 5 DAYS. HOLD ROSUVAST AIN DIRECTED . 10/21 completed Not Available Not Available Not Available Vitals Date Recorded Body height Provider Name an d Address Organization Details Last Updated DateTime 05/05/2023 157.48 cm DUANE Cao [facility] 05/05/2023 08:32:25 Date Recorded Body height Body mass index (BMI) Body weight Body temperature Oxygen saturation Oxygen saturation in Arterial blood by Pulse oximetry Heart rate Systolic blood pressure Diastolic blood pressure Provider Name and Address Organization Details Last Updated DateTime 3 157.48 cm 26.3 kg/m2 16591.3 g 97.6 [degF] 97 % 97 % 72 /min 180 mm[Hg] 84 mm[Hg] DUANE Cao [place] [employer] [facility] 3 07:58:02 Date Recorded Body height Body mass index (BMI) Body weight Body temperature Heart rate Oxygen saturation Oxygen saturation in Arterial blood by Pulse oximetry Systolic blood pressure Diastolic blood pressure Provider Name and Address Organization Details Last Updated DateTime 4 157.48 cm 24.9 kg/m2 98713.5 6 g 97.7 [degF] 76 /min 95 % 95 % 142 mm[Hg] 72 mm[Hg] [facility] 4 11:34:22 Date Recorded Body height Body mass index (BMI) Body weight Body temperature Heart rate Oxygen saturation Oxygen saturation in Arterial blood by Pulse oximetry Systolic blood pressure Diastolic blood pressure Provider Name and Address Organization Details Last Updated DateTime 4 157.48 cm 25.1 kg/m2 55860.1 5 g 98.6 [degF] 56 /min 96 % 96 % 168 mm[Hg] 80 mm[Hg] Rupinder Griffin RN [facility] [employer] [facility] 4 08:04:56 Date Recorded Body height Body mass index (BMI) Body weight Body temperature Heart rate Oxygen saturation Oxygen saturation in Arterial blood by Pulse oximetry Systolic blood pressure Diastolic blood pressure Provider Name and Address Organization Details Last Updated DateTime 4 157.48 cm 25.6 kg/m2 58710.9 3 g 98.4 [degF] 57 /min 96 % 96 % 198 mm[Hg] 96 mm[Hg] Rupinder Griffin RN [facility] 4 08:16:39 Social History Question Answer Notes LastModified by Organizat ion Details LastModified Time Tobacco Smoking Status Former Smoker Not Available [facility] 09/18/2022 00:49:43 What Is Your Level Of Alcohol Consumption? None [id number] Information not available 09/18/2022 What Is Your Level Of Caffeine Consumption? Moderate [id number] Information not available 09/18/2022 How Much Tobacco Do You Chew? None [id number] Information not available 09/18/2022 In The 14 Days Before Symptom Onset, Have You Had Close Contact With A Laboratory-confir med COVID-19 While That Case Was Ill? No [id number] Information not available 09/18/2022 In The 14 Days Before Symptom Onset, Have You Had Close Contact With A Person Who Is Under Investigation For COVID-19 While That Person Was Ill? No [id number] Information not available 09/18/2022 What Type Of Diet Are You Following? REGULAR [id number] Information not available 09/18/2022 Which Illicit Or Recreational Drugs Have You Used? No [id number] Information not available 09/18/2022 Do You Or Have You Ever Used E-cigarettes Or Vape? Never Used Electronic Cigarettes [id number] Information not available 09/18/2022 What Is Your Occupation? Retired [id number].[id number] Information not available 09/18/2022 Do You Use Your Seat Belt Or Car Seat Routinely? Yes [id number] Information not available 12/02/2022 Do You Or Have You Ever Used Smokeless Tobacco? Never Used Smokeless Tobacco [id number].[id number] Information not available 09/18/2022 Do You Participate In Social Media? No [email or web address] Information not available 12/02/2022 Do You Feel Stressed (tense, Restless, Nervous, Or Anxious, Or Unable To Sleep At Night)? [id number] [email or web address] Information not available 12/02/2022 Do You Use Any Illicit Or Recreational Drugs? No [id number] Information not available 09/18/2022 Do You Use Sunscreen Routinely? Yes [id number] Information not available 09/18/2022 Has Tobacco Cessation Counseling Been Provided? No [id number] Information not available 09/18/2022 Have You Recently Traveled Abroad? No [id number] Information not available 09/18/2022 Do You Have Any Dietary Restrictions? No [id number].[id number] Information not available 09/18/2022 Do You Or Have You Ever Used Any Other Forms Of Tobacco Or Nicotine? No [id number].[id number] Information not available 09/18/2022 Sex: Unknown Functional Status Question Answer Note LastModified by ETHERA ion Details LastModified Time What is your exercise level? Occasional [id number] Information not available 09/18/2022 Mental Status None recorded. Family History Nothing Reported Notes:Paternal side unknown No breast or ovary cancer Medical History Condition Response BLINDNESS N RHEUMATIC FEVER N BLADDER PROBLEMS N KIDNEY STONES N MRSA N OTHER # 1 N POLIO N LUNG DISEASE/DISORDER N HISTORY OF DRUG ABUSE N RADIATION / CHEMOTHERAPY N COPD N Other # 2 N BLOOD DISEASES N SURGERY N EAR OR HEARING PROBLEMS N MUMPS N SHINGLES N BOWEL PROBLEMS N FEMALE PROBLEMS / INFECTIONS N DEPRESSION (INCLUDING POST ) N STROKE/TIA N THYROID DISEASE N ULCERS N BENIGN PROSTATIC HYPERPLASIA N MEASLES N CERVICALGIA N HYPOTENSION N TB SKIN TEST N MYOCARDIAL INFARCTION N PARAPELGIA N OBESITY N GERD/NAUSEA N ANEURYSM N URINARY/BLADDER/KIDNEY PROBLEMS N CORONARY ARTERY DISEASE (CAD) N MENIERE'S DISEASE N ADDICTION CONCERNS N ENDOMETRIOSIS N USE OF BLOOD THINNERS N SKIN PROBLEMS N EMPHYSEMA N GASTROINTESTINAL DISORDER N MUSCLE,JOINT OR BONE PROBLEMS N GASTROINTESTINAL BLEEDING N BLOOD CLOTS N ASTHMA N CATARACTS N ERECTILE DYSFUNCTION N GI PROBLEMS N CHF N Low Testosterone N NEUROPATHY N INFERTILITY N AIDS/HIV N FRACTURES N CHEMOTHERAPY / RADIATION N VISION/EYE PROBLEMS N LIVER DISEASE N MALE HYPOGONADISM N HYPERTENSION N TOURETTE'S N ANXIETY DISORDER N BLOOD TRANSFUSION N ANEMIA/BLOOD DISORDER N CHRONIC EAR INFECTIONS N BRONCHITIS N TUBERCULOSIS N GLAUCOMA N FOOT PROBLEM N DIVERTICULITIS N CHICKENPOX N SLEEP APNEA N ALLERGIES/HAYFEVER N INFECTIOUS DISEASE N HEART ARRHYTHMIA N PROSTATE N INSOMNIA N HIGH CHOLESTEROL / HYPERLIPIDEMIA N HYPERTHYROIDISM N EYE PROBLEMS N EATING DISORDER N EDEMA N CHRONIC PAIN SYNDROME N CONSTIPATION N CAROTID BLOCKAGE N BACK / NECK PROBLEMS N HAVE YOU BEEN HOSPITALIZED OR SEEN IN [facility] IN THE PAST YEAR ? N ATHEROSCLEROSIS N BREAST PROBLEMS N DIALYSIS N ECZEMA N FIBROMYALGIA N OSTEOPOROSIS N ARTHRITIS N NO SIGNIFICANT PAST MEDICAL HISTORY N APPENDICITIS N DIABETES, TYPE N BAD TEETH N HEARTBURN / REFLUX N ADD/ADHD N AUTISM SPECTRUM DISORDER (ASD) N HEPATITIS / LIVER DISEASE N PULMONARY DISEASE N GOUT N SLEEP DISORDER N ALZHEIMER'S DISEASE N PAIN N HERPES N DEMENTIA N HEADACHES/MIGRAINES N SEIZURES/EPILEPSY N VASCULAR DISEASE N PACEMAKER N DIZZINESS N HEART DISEASE/HEART PROBLEMS N KIDNEY DISEASE N DEVELOPMENTAL OR BEHAVIORAL DISORDERS N MULTIPLE SCLEROSIS N SCARLET FEVER N MENTAL DISORDER/ILLNESS N CARDIAC ARRHYTHMIA N CANCER: SPECIFY N PNEUMONIA N ATRIAL FIBRILLATION N Gall Stones N PULMONARY EMBOLISM N AUTOIMMUNE DISEASE N Gynecological History Statement/Question Response Current Control Method Menopause Breast Problems no Obstetrics History GPAL:G 0 P 0 0 0 0 Immunizations Vaccine Type Date Status Note Provider Nam e and Address Organization Details Recorded Time influenza, unspecified formulation 3 completed Uche Sanchez RN null, [place] [facility] 05/21/2023 11:37:13 COVID-19, mRNA, LNP-S, bivalent, PF, 30 mcg/0.3 mL dose 3 completed Not Available [facility] 09/18/2022 01:22:12 COVID-19, mRNA, LNP-S, PF, 100 mcg/0.5mL dose or 50 mcg/0.25mL dose 1 completed Not Available [facility] 09/18/2022 01:22:12 COVID-19, mRNA, LNP-S, PF, 30 mcg/0.3 mL dose 1 completed Not Available [facility] 09/18/2022 01:22:12 Influenza, high-dose, quadrivalent, PF 2 completed Not Available [facility] 09/18/2022 01:22:12 Influenza, high-dose, quadrivalent, PF 1 completed Not Available [facility] 09/18/2022 01:22:12 Influenza, high-dose, quadrivalent, PF 0 completed Not Available [facility] 09/18/2022 01:22:12 Influenza, split virus, quadrivalent, PF 9 completed Not Available [facility] 09/18/2022 01:22:13 Influenza, high-dose, trivalent, PF 8 completed Not Available [facility] 09/18/2022 01:22:13 Influenza, high-dose, trivalent, PF 7 completed Not Available [facility] 09/18/2022 01:22:13 Influenza, high-dose, trivalent, PF 6 completed Not Available [facility] 09/18/2022 01:22:13 pneumococcal polysaccharide PPV23 7 completed Not Available [facility] 09/18/2022 01:22:13 Past Encounters Encounter ID Performer Location Encounter Start Date Encounter Closed Date Diagnosis/Indication Diagnosis SNOMED-CT Code Diagnosis ICD10 Code Diagnosis Note [id number] Rea Yuen MD [facility] [place] [address] [facility] [address] [place] [address] 09/25/2020 00:00:00 09/25/2020 08:57:33 [id number] Rea Yuen MD [facility] Primary [facility] [place] [address] [facility] [address] [place] [address] 10/23/2020 00:00:00 10/23/2020 08:38:19 [id number] [facility] [place] [address] [facility] [address] [place] [address] 11/21/2020 00:00:00 11/21/2020 12:55:15 [id number] Rea Yuen MD [facility] Primary [facility] [place] [address] [place] [address] 01/02/2021 00:00:00 01/02/2021 10:36:35 [id number] Rea Yuen MD [facility] Primary [facility] [place] [address] [place] [address] 01/29/2021 00:00:00 01/29/2021 09:44:15 [id number] Rea Yuen MD [facility] [place] [address] [place] [address] 02/07/2021 00:00:00 02/07/2021 08:19:52 [id number] Rea Yuen MD [facility] Primary [facility] [place] [address] [place] [address] 05/02/2021 00:00:00 05/02/2021 18:16:46 [id number] Rea Yuen MD [facility] [place] [address] [place] [address] 05/29/2021 00:00:00 06/03/2021 14:14:25 [id number] VIRGINIA Schwarz [facility] [place] [address] [place] [address] 06/25/2021 00:00:00 06/25/2021 08:41:31 [id number] VIR[place]IA Schwarz [facility] [place] [address] [place] [address] 07/09/2021 00:00:00 07/09/2021 12:00:39 [id number] Rea Yuen MD [facility] Primary [facility] [place] [address] [place] [address] 12/27/2021 00:00:00 01/17/2022 10:40:24 [id number] Rea Yuen MD [facility] Primary [facility] [place] [address] [place] [address] 04/01/2022 00:00:00 04/01/2022 08:57:20 [id number] Rea Yuen MD [facility] Primary [facility] [place] [address] [facility] [address] [place] [address] 04/18/2022 00:00:00 04/18/2022 09:24:41 [id number] Rea Yuen MD [facility] Primary [facility] [place] [address] [facility] [address] [place] [address] 05/08/2022 00:00:00 05/08/2022 08:38:02 [id number] Rea Yuen MD [facility] Primary [facility] [place] [address] [facility] [address] [place] [address] 05/23/2022 00:00:00 05/23/2022 19:08:06 [id number] Rea Yuen MD [facility] Primary [facility] [place] [address] [facility] [address] [place] [address] 09/02/2022 00:00:00 09/02/2022 08:47:12 [id number] Rea Yuen MD [facility] Primary [facility] [place] [address] [facility] [address] [place] [address] 10/15/2022 08:01:13 10/15/2022 08:30:18 Essential hypertension [id number] I10 stablerech yan bmp to monitor creatinine Hypothyroidism 70286537 E03.9 last tsh was mildly low, monitor closely [id number] Rea Yuen MD [facility] Primary [facility] [place] [address] [facility] [address] [place] [address] 12/02/2022 08:46:38 12/02/2022 09:35:47 Adult health examination 523075263 Z00.00 DEXA 05/2021 osteopenia repeat 2023 Mammogram done 11/26/22 Colonoscop y done 04/03/2020 Flu vaccine yearly Covid vaccines per cdc guideline Pneumonia vaccines up to date Hep c screen negative 2016 No paps needed Check fasting labs Screening for disorder [id number] Z13.9 Acute situ ational disturbance 706150532 F43.20 add buspirone 5 mg po bid Essential hypertension 27772735 I10 not in good controlver y stressedf/ u in 4 weeks Hypothyroidism 26996573 E03.9 stable Cobalamin deficiency 190 226241 E53.8 Hyperlipidemia 31947921 E78.5 Z79.899 Iron defic iency anemia 11746730 D50.9 Vitamin D deficiency 347 81217 E55.9 Coronary arteriosclerosis 84862823 I25.10 sees cardiology Gastroesop hageal reflux disease without esophagitis 083655085 K21.9 stable [id number] Rea Yuen MD [facility] Primary Care [facility] [address] [facility] [address] [place] [address] 01/06/2023 08:13:00 01/06/2023 09:02:50 Essential hypertension 07242581 I10 in good control per home readingsco ntinue current medication f/u in 3 months Hypothyroidism 72791940 E03.9 stable, no med changes neededf/u in 3 months [id number] SILVESTRE Kilgore [facility] Primary Care [facility] [address] [facility] [address] [facility] [address] 02/26/2023 12:15:04 02/26/2023 14:04:58 Upper respiratory infection 16763499 J06.9 New problemURI vs Flu vs COVID vs Bronchits vs Sinus/Torin rgyPt reports home covid test neg. Recommend pt consider PCR testing if flu swab neg.Will start on Azithromyc in and course of steroids to cover for potential bronchitis /pneumonia . Discussed s/s that warrant emergency evaluation . Patient presented with symptoms of upper respirator y infection. Advised to drink plenty of fluids, run a cool-mist humidifier in room at night, gargle salt water for sore throat, and get plenty of rest. Patient should avoid over-exert ion and reduce exposure to irritants such as smoke, cold, dry air, and dust.Encou raged pt to continue with symptomati c relief. Patient may take acetaminop hen or ibuprofen as directed to reduce fever and body aches. Antihistam ine and decongesta nt usage was discussed and recommenda tions made. Patient understood these instructio ns and will follow up in the office in 10 days to 2 weeks if symptoms not improving. [id number] Rea Yuen MD [facility] Primary Care [facility] [address] [facility] [address] [place] [address] 05/05/2023 08:18:57 09/17/2023 11:24:32 [id number] Rea Yuen MD [facility] Primary Care [facility] [address] [facility] [address] [place] [address] 06/18/2023 07:52:30 06/18/2023 08:33:46 Essential hypertension 65091013 I10 not in good controlver y stressedin crease amlodipine 5 mgcall Friday with home readingsf/ u in 4 weeks Hypothyroidism 42784787 E03.9 stable Cobalamin deficiency 190 063086 E53.8 Hyperlipidemia 68423597 E78.5 Z79.899 Iron defic iency anemia 71470544 D50.9 Vitamin D deficiency 347 68259 E55.9 Acute sinusitis 12521819 J01.90 fluid, rest, amoxicilli n bid x 7 dayscall/r eturn if no improvemen t in 1-2 days or sooner if neededrevi ewed s/s that warrant urgent/mavis rgent eval in meantime Insomnia 914678371 G47.0 0 sleep hygeinetra zodone 50 mg 1-2 po qhs prn insomniare viewed potential med s/e, do not take before driving/wo rking [id number] Rea Yuen MD [facility] Primary Care [facility] [address] [facility] [address] [place] [address] 10/21/2023 11:28:22 10/21/2023 12:16:42 Essential hypertension 35782405 I10 stablechec k labs Hypothyroidism 98246637 E03.9 stable Cobalamin deficiency 190 021293 E53.8 Hyperlipidemia 93409289 E78.5 Z79.899 Iron defic iency anemia 43952048 D50.9 Vitamin D deficiency 347 77896 E55.9 Blood in urine 19225236 R31.9 note on ER labs, will repeat urinept asymptomat ic [id number] ELO Johnson [facility] Primary Care [facility] [address] [facility] [address] [facility] [address] 12/24/2023 07:54:54 12/24/2023 08:22:25 Hypothyroidism 55867130 E03.9 -currently on 75mcg on friday, friday, , and friday, 50mcg on the other days-labs ordered, she plans to f/u next month Essential hypertension 43559507 I10 -bp 168/80, gets a lot of headaches, occ chest pain, no sob-curren tly on amlodipine and enalapril- cardiology already on her case [id number] Jonatan Ramsey, [facility] Primary Care [facility] [address] [facility] [address] [place] [address] 04/08/2024 08:00:55 04/08/2024 08:34:45 Transition of care 8621628649 105 Z75.8 admitted for observatio n for flu-like symptomsd/ c from hospital on 03/31 Cough 57285864 R05.9 Essential hypertension 67731535 I10 currently off of enalapril until seeing cardiology at the end of the monthbp 198/96, 57 no sharp cp sobincreas ing amlodpine to 10mg Health Concerns Section Related Observation LastModified by Organization Detai ls LastModified Time None Recorded Concern Status LastModified by Organization Details LastModified Time None Recorded Advance Directives Directive None Recorded Payers Encounter Date Sequence Insurance Name Policy Number Policy Lentz Covered Member ID Lentz Member ID Guarantor Name 05/05/2023 1 [facility] (MEDICARE REPLACEMENT/AD VANTAGE - PPO) [id number] Katherine Quinones [id number] Katherine Florian Stacie 05/05/2023 2 [place]ARE OR MEDICARE REPLACEMENT PRIMARY) Katherine Elmoreiman [id number] Katherine Florian Stacie 06/18/2023 1 [facility] (MEDICARE REPLACEMENT/AD VANTAGE - PPO) [id number] Katherine Florian Stacie [id number] Katherine Florian Stacie 06/18/2023 2 [place]IC[place]PLACEMENT PRIMARY) Katherine Quinones [id number] Katherine Florian Stacie 10/21/2023 1 [facility] (MEDICARE REPLACEMENT/AD VANTAGE - PPO) [id number] Katherine Elmoreiman [id number] Katherine Florian Stacie 10/21/2023 2 [place] MEDICARE REPLACEMENT PRIMARY) Katherine Elmoreiman [id number] Katherine Florian Stacie 12/24/2023 1 [facility] (MEDICARE REPLACEMENT/AD VANTAGE - PPO) [id number] Katherine Florina Stacie [id number] Katherine Florian Stacie 12/24/2023 2 [place] OR MEDICARE REPLACEMENT PRIMARY) Katherine Elmoreiman [id number] Katherine Florian Stacie 04/08/2024 1 [facility] (MEDICARE REPLACEMENT/AD VANTAGE - PPO) [id number] Katherine Florian Stacie [id number] Katherine Florian Stacie 04/08/2024 2 [place] OR MEDICARE REPLACEMENT PRIMARY) Katherine Elmoreiman [id number] Katherine Florian Stacie Notes Date Note Type Note Provider Name and Address Organization Details Recorded Time 06/18/2023 text/html home blood pressures are elevated 150s-160s. No chest pain or sob. She is taking enalapril 20 mg daily and amlodipine 2.5 mg daily. Head feels congested, nose bleeds from blowing. NO fever, +PND. Very stressed with 's health. 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 Rea Yuen MD [address] [place] [address], [place] [address], [place], [address], [place] [employer] [facility] 06/18/2023 08:18:27 10/21/2023 text/html home blood pressures are elevated 150s-160s. No chest pain or sob. She is taking enalapril 20 mg daily and amlodipine 2.5 mg daily. Head feels congested, nose bleeds from blowing. NO fever, +PND. Very stressed with 's health. 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 10/21/23: Had to move out of her home because she couldn't afford it. She had covid and couldn't sleep, rest, or eat well. She is now settled into a new place. She was seen in ER on 10/11/23 because she felt sick, was told she was depressed and exhausted. She will be seeing therapist and psychiatry at [facility] upcoming. Rea Yuen MD [address] [facility], [facility] [address], [place], [address], [employer] 10/21/2023 11:48:03 12/24/2023 text/html pt is here for f/u ELO Johnson [address] [facility], [place] [address], [place], [address], [employer] 12/25/2023 08:00:37 04/08/2024 text/html pt is here for [facility] f/u ELO Johnson [address] [facility], [place] [address], [place], [address], [employer] 04/08/2024 08:31:33 OBGyn Episode No OBEpisode recorded.
--- OUTSIDE RECORDS SUMMARY | 2024-11-22 08:24 | XMS_ITS | Patient Health Record ---
Author Organization 1 OF [facility]shine howard [facility] Address [address] [place] [address] Care Team Providers Care Net Developer With [employer] Name Role Phone Letty Thorne Primary Care Provider Unavail able Leighton James Unavailable Rea Yuen MD Unavailable Unavailable Allergies Allergen (clinical drug ingredient) Drug/Non Drug Allergy documented on EMR Reaction Allergy Type Onset Date Status metoprolol metoprolol (uncoded) Unknown Allergy Active pravastatin Pravachol (uncoded) Unknown Allergy Active Substance with sulfonamide structure and antibacterial mechanism of action (substance) sulfa (uncoded) Unknown Allergy Active Results Component Value Reference Range Notes THO w/ ultrasound arterial d uplex Reviewed date:07/22/2024 06:12:31 PM Interpretation:Right THO is 1.0. Right toe pressure is 40. Left THO is 0.74. Left Toe pressure is 20. Based on toe pressures, healing is compromised in both feet. Performing Lab: Notes/Report: Right THO is 1.0. Right toe pressure is 40. Left THO is 0.74. Left Toe pressure is 20. Based on toe pressures, healing is compromised in both feet. Reason For Referral No Information Medications Medication SIG (Take, Route, Frequency, Duration) Notes Start Date End Date Status Omeprazole Active Losartan Potassium A ctive Baby Aspirin Active Rosuvastatin Calcium Active Enalapril Maleate Ac tive Levothyroxine Sodium Active Plavix Active Folic Acid Active Calcium Active Lisinopril 20 MG TAKE 1 TABLET BY RDUDY ONCE DAILY Oral for 30 Days Not-Takin g amLODIPine Besylate Active Social History Tobacco Use: Social History Observation Description Date Details (start date - stop date) Never Smoker NA - NA Tobacco Use/Smoking Question Answer Notes Are you a nonsmoker Problems Problem Type SNOMED Code ICD Code Onset Dates Problem Status W/U Status Risk Notes Problem 79172484 Generalized atherosclerosis (I70.91) Active confirmed Problem 636063297 Hallux valgus (acquired), right foot (M20.11) Active confirmed Problem 191558895193413 Hallux valgus (acquired), left foot (M20.12) Active confirmed Problem 3170081237087231 Acquired hammer toe of left foot (M20.42) Active confirmed Problem 04450854396555914 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) Active confirmed Problem 460187915 PAD (peripheral artery disease) (I73.9) Active confirmed Problem Extremity atherosclerosis with resting pain (I70.229) Active confirmed Problem Acquired hammer toe of right foot (8788976130211308) Hammertoe of right foot (M20.41) Active confirmed Problem 550616641 Hammertoe of lef t foot (M20.42) Active confirmed Problem 263489537 Status post amputation of toe of left foot (Z89.422) Active confirmed Problem Amputated toe (finding) (856012945) History of amputation of toe (Z89.429) Active confirmed Vital Signs Height 61 in 11/16/2024 Weight 138 lbs 11/16/2024 BMI 26.07 kg/m2 11/16/2024 Encounters Encounter Location Date Provider Diagnosis 1 OF Sunshine James [facility] [employer] [address] [place] [address] 12/30/2023 Leighton James Generalized atherosclerosis I70.91 ; Callus of foot L84 ; Onychogryphosis L60.2 ; History of amputation of toe Z89.429 ; At risk for falls Z91.81 and Physical debility R53.81 1 OF Sunshine JACKSON [employer] [address] [place] [address] 03/12/2024 Leighton James Generalized atherosclerosis I70.91 ; Callus of foot L84 ; Onychogryphosis L60.2 ; History of amputation of toe Z89.429 ; At risk for falls Z91.81 and Physical debility R53.81 1 OF [facility] [address] [place] [address] 06/01/2024 Leighton James Generalized atherosclerosis I70.91 ; Callus of foot L84 ; Onychogryphosis L60.2 ; History of amputation of toe Z89.429 ; At risk for falls Z91.81 ; Physical debility R53.81 ; PAD (peripheral artery disease) I73.9 and Extremity atherosclerosis with resting pain I70.229 1 OF [facility] [address] [place] [address] 08/24/2024 Leighton James Generalized atherosclerosis I70.91 ; Callus of foot L84 ; Onychogryphosis L60.2 ; History of amputation of toe Z89.429 ; At risk for falls Z91.81 ; Physical debility R53.81 ; PAD (peripheral artery disease) I73.9 and Extremity atherosclerosis with resting pain I70.229 1 OF [facility] [address] [place] [address] 11/16/2024 Leighton James Generalized atherosclerosis I70.91 ; Callus of foot L84 ; Onychogryphosis L60.2 ; History of amputation of toe Z89.429 ; At risk for falls Z91.81 ; Physical debility R53.81 ; PAD (peripheral artery disease) I73.9 and Extremity atherosclerosis with resting pain I70.229 1 OF [facility] [address] [place] [address] 06/01/2024 Leighton James 1 OF [facility] [address] [place] [address] 07/07/2024 Leighton James Assessments Encounter Date Diagnosis (ICD Code) Assessment Notes Treatment Notes Treatment Clinical Notes Section Notes 12/30/2023 Generalized atherosclerosis (ICD-10 - I70.91) Considering the associated comorbidities and physical exam findings today, this patient is at substantial risk of developing serious foot complications in the absence of regular and professional palliative foot care 03/12/2024 Generalized atherosclerosis (ICD-10 - I70.91) Considering the associated comorbidities and physical exam findings today, this patient is at substantial risk of developing serious foot complications in the absence of regular and professional palliative foot care 06/01/2024 Generalized atherosclerosis (ICD-10 - I70.91) Considering the associated comorbidities and physical exam findings today, this patient is at substantial risk of developing serious foot complications in the absence of regular and professional palliative foot care 06/01/2024 Callus of foot (ICD-10 - L84) 08/24/2024 Generalized atherosclerosis (ICD-10 - I70.91) Considering the associated comorbidities and physical exam findings today, this patient is at substantial risk of developing serious foot complications in the absence of regular and professional palliative foot care 11/16/2024 Generalized atherosclerosis (ICD-10 - I70.91) Considering the associated comorbidities and physical exam findings today, this patient is at substantial risk of developing serious foot complications in the absence of regular and professional palliative foot care 11/16/2024 Callus of foot (ICD-10 - L84) 11/16/2024 Onychogryphosis (ICD-10 - L60.2) 08/24/2024 Callus of foot (ICD-10 - L84) 06/01/2024 Onychogryphosis (ICD-10 - L60.2) 03/12/2024 Callus of foot (ICD-10 - L84) 12/30/2023 Callus of foot (ICD-10 - L84) 12/30/2023 Onychogryphosis (ICD-10 - L60.2) 03/12/2024 Onychogryphosis (ICD-10 - L60.2) 08/24/2024 Onychogryphosis (ICD-10 - L60.2) 06/01/2024 History of amputation of toe (ICD-10 - Z89.429) 11/16/2024 History of amputation of toe (ICD-10 - Z89.429) 11/16/2024 At risk for falls (ICD-10 - Z91.81) 08/24/2024 History of amputation of toe (ICD-10 - Z89.429) 06/01/2024 At risk for falls (ICD-10 - Z91.81) 03/12/2024 History of amputation of toe (ICD-10 - Z89.429) 12/30/2023 History of amputation of toe (ICD-10 - Z89.429) 12/30/2023 At risk for falls (ICD-10 - Z91.81) 03/12/2024 At risk for falls (ICD-10 - Z91.81) 08/24/2024 At risk for falls (ICD-10 - Z91.81) 06/01/2024 Physical debility (ICD-10 - R53.81) 11/16/2024 Physical debility (ICD-10 - R53.81) 11/16/2024 PAD (peripheral artery disease) (ICD-10 - I73.9) She was advised against wearing sandals/open toe shoes. If she does, she was advised to inspect her feet multiple times throughout the day. She will continue walking as recommended by her vascular surgeon. 08/24/2024 Physical debility (ICD-10 - R53.81) 03/12/2024 Physical debility (ICD-10 - R53.81) 06/01/2024 PAD (peripheral artery disease) (ICD-10 - I73.9) Discussed signs and symptoms of PAD and recommended THO to further evaluate. 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 Recommend venous doppler. Also recommended sleeping with a pillow under foot to elevate the foot. 12/30/2023 Physical debility (ICD-10 - R53.81) 06/01/2024 Extremity atherosclerosis with resting pain (ICD-10 - I70.229) 08/24/2024 PAD (peripheral artery disease) (ICD-10 - I73.9) Continue to sleep with heels elevated off the matress and f/u with vascular surgeon as scheduled. Monitor feet closely and contact our office [place] with any concerns between visits. 11/16/2024 Extremity atherosclerosis with resting pain (ICD-10 - I70.229) 08/24/2024 Extremity atherosclerosis with resting pain (ICD-10 - I70.229) 11/16/2024 Other She purchased Amer[employer]gel lotion today. Plan Of Treatment Next Appt Details Provider Name:Reijaceaiden James, 01/25/2025 07:30:00 AM, [address], [place], [address], Insurance Providers Payer Name Payer Address Payer Phone Subscriber Number Group Number Insured Name Patient Relationship to Insured Coverage Start Date Coverage End Date [employer] Medicare Complete [address] [address] [place] [address] [phone] [id number] Katherine Quinones Self - patient is the insured [employer] [facility] [address] [address] [place] [address] [id number] Katherine Quinones Self - patient is the insured Medical (General) History Medical History History ICD Code Arthiris GERD HeartAttack High Cholesterol High blood pressure Thyroid Problems Implanted Heart Monitor skin cancer lesion removal with biopsy x 7 Surgical History Surgery Date(Month/Year) Aputation of toes (3 toes) 5 bypass open heart surgury Phlebectomy b/l
--- OUTSIDE RECORDS SUMMARY | 2024-11-22 08:24 | XMS_ITS ---
Author Organization 1 OF Sunshine howard [facility] Address [address] [place] [address] Care Team Providers Care After School Program Teacher Name Role Phone Letty Thorne Primary Care Provider Unavail able Leighton James Unavailable Wilfrid CRONIN, Rea Unavailable Unavailable REASON FOR VISIT results Encounters Encounter Location Date Provider Diagnosis 1 OF [facility] [address] [place] [address] 07/07/2024 Leighton James Plan Of Treatment Next Appt Details Provider Name:Leighton James, 01/25/2025 07:30:00 AM, [address], [place], [address], Progress Notes * Gavin QUINONESOB: (74 yo F)Acc No.[id number]:07/07/2024 Patient: Teena WRIGHT Katherine :1950 A ge:74 Y S ex:Female Address:[facility] [address], [place], [address] * true * Date: Generated for Printi ng/Faxing/eTransmitting on: 0 11/22/2024 08:24 AM CDT
--- OUTSIDE RECORDS SUMMARY | 2024-11-22 08:24 | XMS_ITS ---
Author Organization 1 OF [facility] Address [address] [place] [address] Care Team Providers Care Pet Care Associate Name Role Phone Letty Thorne Primary Care Provider Unavail Leighton Mccarty Unavailable Wilfrid CRONIN, Rea Unavailable Unavailable Allergies Allergen (clinical drug ingredient) Drug/Non Drug Allergy documented on EMR Reaction Allergy Type Onset Date Status metoprolol metoprolol (uncoded) Unknown Allergy Active pravastatin Pravachol (uncoded) Unknown Allergy Active Substance with sulfonamide structure and antibacterial mechanism of action (substance) sulfa (uncoded) Unknown Allergy Active REASON FOR VISIT High Risk Foot care Medications Medication SIG (Take, Route, Fr equency, Duration) Notes Start Date End Date Status Rosuvastatin Calcium Active amLODIPine Besylate Active Enalapril Maleate Ac tive Omeprazole Active Lisinopril 20 MG TAKE 1 TABLET BY RUDDY TH ONCE DAILY Oral for 30 Days Active Levothyroxine Sodium Active Baby Aspirin Active Plavix Active Vital Signs Height 61 in 08/24/2024 Weight 138 lbs 08/24/2024 BMI 26.07 kg/m2 08/24/2024 Encounters Encounter Location Date Provider Diagnosis 1 OF [facility] [address] [place] [address] 08/24/2024 Leighton James Generalized atherosclerosis I70.91 ; Callus of foot L84 ; Onychogryphosis L60.2 ; History of amputation of toe Z89.429 ; At risk for falls Z91.81 ; Physical debility R53.81 ; PAD (peripheral artery disease) I73.9 and Extremity atherosclerosis with resting pain I70.229 Assessments Encounter Date Diagnosis (ICD Code) Assessment Notes Treatment Notes Treatment Clinical Notes Section Notes 08/24/2024 Generalized atherosclerosis (ICD-10 - I70.91) Considering the associated comorbidities and physical exam findings today, this patient is at substantial risk of developing serious foot complications in the absence of regular and professional palliative foot care 08/24/2024 Callus of foot (ICD-10 - L84) 08/24/2024 Onychogryphosis (ICD-10 - L60.2) 08/24/2024 History of amputation of toe (ICD-10 - Z89.429) 08/24/2024 At risk for falls (ICD-10 - Z91.81) 08/24/2024 Physical debility (ICD-10 - R53.81) 08/24/2024 PAD (peripheral artery disease) (ICD-10 - I73.9) Continue to sleep with heels elevated off the matress and f/u with vascular surgeon as scheduled. Monitor feet closely and contact our office [facility] with any concerns between visits. 08/24/2024 Extremity atherosclerosis with resting pain (ICD-10 - I70.229) Plan Of Treatment Treatment Notes Assessment Notes Generalized atherosclerosis Considering the associated comorbidities and physical exam findings today, this patient is at substantial risk of developing serious foot complications in the absence of regular and professional palliative foot care PAD (peripheral artery disease) Continue to sleep with heels elevated off the matress and f/u with vascular surgeon as scheduled. Monitor feet closely and contact our office [facility] with any concerns between visits. Next Appt Details Follow Up: 10-12 weeks or co ntact office PRN with any concerns. 10-12 weeks or contact office PRN with any concerns, Reason: Provider Name:Leighton James, 01/25/2025 07:30:00 AM, [address], [address] [place], [address], Procedure Notes * Category Sub-Category Detail Notes PALLIATIVE FOOT CARE: Callus paring: (69649) Fi ve or more calluses as noted above reduced with a sterile scalpel blade Nail debride (19930): Debridement of at least six mycotic and/or hypertrophic nails performed:, utilizing manual and electric debridement the affected nails were reduced the nails in length and thickness with curettage of debris from nail margins performed as needed. Nail thickness reduced by:, 10% Progress Notes * Gavin QUINONESOB: 1 (74 yo F)Acc No.[id number]:08/24/2024 Progress Note Patient: Katherine PAUL Provider: [facility] James DPM :1950 A ge:74 Y S ex:Female Date:08/24/2024 Address:[address] [place] [address] [address], [facility] Pcp:Letty Thorne Subjective: * Chief Complaints: * H igh Risk Foot care * HPI: M A assisting with visit:: Chart Prep M yeshia. HPI/Rooming: , Mybobo. P [facility] reason for visit:: 74 y/o female RTO for at risk foot care. Pt reports no acute issues with nails or calluses today.? A t last visit saeid was sent for an THO due to presumed ischemic pain of the LT heel. The THO was performed in June and was noted to be significantly abnormal and patient was encouraged to see a vascular specialist for further evaluation. Today the patient reports she will be seeing a vascular doctor at [facility]. S he denies any worsening symptoms of either foot or leg. * Medical History: * Surgical History: A putation of toes (3 toes) 5 bypass open heart surgury Phlebectomy b/l * Hospitalization/Major Diagno stic Procedure: * Family History: N on-Contributory. * Medications: T akingLisinopril 20 MG Tablet TAKE 1 TABLET BY MOUTH ONCE DAILY Oral amLODIPine Besylate Rosuvastatin Calcium Enalapril Maleate Levothyroxine Sodium Plavix Baby Aspirin Omeprazole Medication List reviewed and reconciled with the patientTaking Lisinopril 20 MG Tablet TAKE 1 TABLET BY MOUTH ONCE DAILY Oral Taking amLODIPine Besylate Taking Rosuvastatin Calcium Taking Enalapril Maleate Taking Levothyroxine Sodium Taking Plavix Taking Baby Aspirin Taking Omeprazole Medication List reviewed and reconciled with the patient * Allergies: s Elmaolabigail[Allergies Verified] Objective: * Vitals: W t:138lbs, Wt-k.6 kg, Ht: 61 in, BMI:26.07Index. * P ast Orders: I vashti:THO w/ ultrasound arterial duplex (Order Date - 06/01/2024) (Performed Date - 07/01/2024) Result: Right THO is 1.0. Right toe pressure is 40. Left THO is 0.74. Left Toe pressure is 20. Based on toe pressures, healing is compromised in both feet. * Examination: G eneral Examination: Constitutional / Appearance: N o acute distress , Well nourished, Appropriate personal hygiene. Mental status: C ooperative, Oriented to person, place and time, Mood and affect: normal, Judgement and intellect: normal with appropriate response to questions. Ambulatory assistive device: n one. Shoes today: s lip on tennis shoes. L ower Extremity VASCULAR: : Pulses: D P pulse diminished b/l , PT pulse diminished b/l.? Temperature gradient: decreased from proximal to distal, bilateral. Pedal hair: sparse / absent, bilateral. L ower Extremity DERM: : Skin: t hin, atrophic, no suspicious lesions, without interdigital maceration, bilateral. Nails: N ail(s) of TA, T1, T2, T4, T5, T6, and T7 appear; thickened and dystrophic with distal lysis of the nail plate and subungual debris noted. Hyperkeratotic lesions LEFT foot: P lantar medial 1st, distal 3rd. Hyperkeratotic lesions RIGHT foot: p lantar medial 1st, distal 3rd, , distal 4th toe. L ower Extremity NEURO: : Neurological status: n ormal sensation to sharp/ dull with normal and symmetric muscle tone bilateral. L ower Extremity MSK: : Gait G ait appear relatively unstable with some difficulty with balance apparent. Lower extremity inspection and palpation: Plantar fat pad atrophy noted b/l. Amputation noted: Left foot:partial amputation of [id number] and 5th digits;Right foot: partial amputation of distal 4th digit. Foot deformities: L eft foot:hallux valgusRight foot:hallux valgus. Hammertoe deformity: Left foot 5th toe exhibits adductus contracture / deformity. Assessment: * Assessment: 1. G eneralized atherosclerosis - I70.91 (Primary) 2 . C allus of foot - L84 3 . O nychogryphosis - L60.2 4 . H istory of amputation of toe - Z89.429 5 . A t risk for falls - Z91.81 6 . P hysical debility - R53.81 7 . P AD (peripheral artery disease) - I73.9 8 . E xtremity atherosclerosis with resting pain - I70.229 Plan: * Treatment: 2. P AD (peripheral artery disease) Notes: Continue to sleep with heels elevated off the matress and f/u with vascular surgeon as scheduled. Monitor feet closely and contact our office [place] with any concerns between visits. * Procedures: P ALLIATIVE FOOT CARE:: Callus paring: ( [id number]) Five or more calluses as noted above reduced with a sterile scalpel blade. Nail debride (67577): D ebridement of at least six mycotic and/or hypertrophic nails performed:, utilizing manual and electric debridement the affected nails were reduced the nails in length and thickness with curettage of debris from nail margins performed as needed. Nail thickness reduced by:, 10%. * Procedure Codes: 1 1057 TRIM SKIN LESIONS, OVER 4, Modifiers: Q7 48841 DEBRIDE NAIL, 6 OR MORE, Modifiers: Q7 , 59 * Preventive Medicine: Counseling: C are goal follow-up plan: BMI counseling provided to patient:?Lifestyle education Screenings: F ALL RISK SCREENING Fall Risk Assessment: N o falls in the past year * Follow Up: 1 0-12 weeks or contact office PRN with any concerns. 10-12 weeks or contact office PRN with any concerns * Images: * AL HYGIENE PROFESSOR Sign off status: Completed true * Provider: [facility] James DPM Date: 0 08/24/2024 Generated for Iram foster/Chidi/Masood on: 0 11/22/2024 08:24 AM CDT History and Physical Notes * HPI (History of Present Illness) Category Sub-Category Detail Notes Category Not es Primary reason for visit: 74 y/o female RTO fo r at risk foot care. Pt reports no acute issues with nails or calluses today. At last visit saeid was sent for an THO due to presumed ischemic pain of the LT heel. The THO was performed in June and was noted to be significantly abnormal and patient was encouraged to see a vascular specialist for further evaluation. Today the patient reports she will be seeing a vascular doctor at [facility]. She denies any worsening symptoms of either foot or leg. GREGORY assisting with visit: HPI/Rooming: , Myeshia Chart Prep Myeshia Examination Category Sub-Category Detail Notes Category Not es General Examination Mental status: Cooperative, Oriented to person, place and time, Mood and affect: normal, Judgement and intellect: normal with appropriate response to questions Shoes today: slip on tennis shoes Ambulatory assistive device: none Constitutional / Appearance: No acute di stress , Well nourished, Appropriate personal hygiene Lower Extremity VASCULAR: Pulses: DP pul se diminished b/l , PT pulse diminished b/l Temperature gradient: decreased from pro ximal to distal , bilateral Pedal hair: sparse / absent , bi lateral Lower Extremity NEURO: Neurological status: norm al sensation to sharp/ dull with normal and symmetric muscle tone bilateral Lower Extremity MSK: Hammertoe deformity: Left f oot 5th toe exhibits adductus contracture / deformity Amputation noted: Left foot:partial am putation of distal 4th and 5th digits; Right foot: partial amputation of distal 4th digit Foot deformities: Left foot: hallux va lgus Right foot: hallux valgus Gait Gait appear relative ly unstable with some difficulty with balance apparent Lower extremity inspection and palpation : Plantar fat pad atrophy noted b/l Lower Extremity DERM: Skin: thin, atro phic, no suspicious lesions, without interdigital maceration, bilateral Nails: Nail(s) of TA, T1, T 2, T4, T5, T6, and T7 appear; thickened and dystrophic with distal lysis of the nail plate and subungual debris noted Hyperkeratotic lesions LEFT foot: Planta r medial 1st, distal 3rd Hyperkeratotic lesions RIGHT foot: plant ar medial 1st, distal 3rd, , distal 4th toe
--- OUTSIDE RECORDS SUMMARY | 2024-11-22 08:24 | XMS_ITS ---
Author Organization [facility] [place] [address] Address [address] [place] [address] Care Team Providers Care Box Machine Operator Name Role Phone Letty Thorne MD Primary Care Provider Active Problems Problem Noted Date Diagnosed Date Chronic pain syndrome 09/19/2022 Stress 11/10/2021 Anxiety 11/10/2021 Somatic complaints, multiple 11/10/2021 Incomplete uterovaginal prolapse 10/29/2021 Vaginal atrophy 10/29/2021 Essential hypertension 12/27/2020 H/O sinus bradycardia 06/29/2019 Status post placement of implantable loop record er 04/21/2019 Overview (02/03/2020): [employer] Implantable Loop Recorder. Dx; Palpitations, Tachycardia. DOI 04/15/2019-Gema. Carelink remote monitoring. 02/02/2020-ILR explanted. PSVT (paroxysmal supraventricular tachycardia) 0 03/18/2019 Overview (03/18/2019): Added automatically from request for surgery [id number] Squamous cell carcinoma 11/09/2018 Suprapubic pain 10/23/2018 Secondary hyperparathyroidism of renal origin Coronary artery disease invo lving tejon coronary artery of tejon heart without angina pectoris 05/26/2018 Bilateral carotid artery stenosis 05/26/2018 Weight loss 10/10/2017 Assessment & Plan (10/10/2017 8:27 PM CDT): Pt is on a severe low fat diet, plus has poor appetite and is loosing wt. Counseled on nutrient dense floods and rec increase of good fats and oils. Chronic chest pain 10/10/2017 Assessment & Plan (10/10/2017 8:32 PM CDT): Chronic musculoskeletal CP Gastroesophageal reflux disease 08/12/2017 Renal impairment 08/12/2017 Occlusion and stenosis of carotid artery 017 Bruit of left carotid artery 04/03/2017 Assessment & Plan (10/10/2017 8:34 PM CDT): 03/2017: 50-69% stenopsis of both carotids. Asymptomatic. Cont CAPT and statin Assessment & Plan (04/03/2017 11:04 AM CDT): New left carotid bruit heard, asymptomtic Recommend further evaluation with an ultrasound Discussed treatment; if [id number] stenosis continue aspirin and statin therapy, if severe stenosis she may need evaluation for carotid endarterectomy. Upsetting news for the patient. Cough 04/03/2017 Assessment & Plan (10/10/2017 8:32 PM CDT): Chronic cough, no better off ACEI. Assessment & Plan (04/03/2017 10:55 AM CDT): Annoying cough, which may be secondary to allergies/postnasal drip or perhaps her enalapril. Will switch to losartan for month and see if that causes improvement. Benign hypertension with CKD (chronic kidney disease) stage III 04/03/2017 Assessment & Plan (10/10/2017 8:25 PM CDT): Hypertension is not well-controlled. Claims white-coat HTN, but consistently high. Increase enalapril to 20 mg qd. Assessment & Plan (04/03/2017 10:54 AM CDT): Hypertension is high today, patient claims white coat hypertension. Statin intolerance 04/03/2017 Assessment & Plan (10/10/2017 8:35 PM CDT): Was intolerant of low-dose pravastatin in the past, lalito joshi hardly walk Tolerating rosuvastatin however. Assessment & Plan (04/03/2017 10:57 AM CDT): Was intolerant of low-dose pravastatin in the past, c ould hardly walk. Palpitations 04/03/2017 Assessment & Plan (04/03/2017 11:03 AM CDT): Had not documented any a arrhythmias, sounds like APCs or PVCs, nothing sustained. Patient reassured. Skin neoplasm 04/01/2017 Squamous cell carcinoma in situ (SCCIS) 04/01/20 17 Chronic kidney disease, stage 3 (moderate) 03/04 Inflamed seborrheic keratosis 12/18/2016 Keratosis, senilis 12/18/2016 Hypothyroidism 09/04/2016 Herpes simplex virus (HSV) infection 08/12/2016 Atherosclerosis 06/03/2016 Depression 05/03/2016 Overview (10/25/2016): Depression, unspecified depression type Multiple-type hyperlipidemia 05/03/2016 Overview (10/25/2016): Mixed hyperlipidemia Assessment & Plan (10/10/2017 8:36 PM CDT): 03/2017 chol 164, LDL 86 on rosuva 40 mg qd. Good, not great, for diffucse vascular disease. Assessment & Plan (04/03/2017 10:56 AM CDT): 06/2016: Cholesterol 169, LDL 83, on atorvastatin 40 mg q.d.. Certainly the lower the better for this patient with diffuse vascular disease. History of coronary artery bypass surgery 2015 Overview (10/25/2016): History of coronary artery bypass graft History of nonmelanoma skin cancer 05/01/2016 Squamous cell carcinoma of upper extremity 02/20 Neoplasm of skin of hand 12/20/2015 Overview (10/31/2017): Description: halima dennis r/o hak vs scc Neoplasm of upper extremity 12/20/2015 Overview (10/31/2017): Description: halima bx, r/o nmsc Actinic keratosis 12/20/2015 History of basal cell carcinoma (BCC) 12/20/2015 Overview (10/31/2017): Description: ner. photoprotect. rtc 6 months Peripheral vascular disease 09/06/2014 Overview (10/25/2016): Peripheral vascular disease Assessment & Plan (04/03/2017 10:58 AM CDT): Has lost tips of her toes secondary to PVD CTA 2014 showed distal and small vessel disease Has intact pedal pulses Continue dual anti-platelet therapy because of significant vascular disease. Stable. Current Treatment and Therapy Plans No current plan information found. Past Treatment and Therapy Plans No past plan information found. Lifetime Dose Tracking * Chemical Lifetime Dose Automatic Entry Manual Entr y Air kerma at the reference point (Ka,r) 11 mGy 0 mGy 11 mGy Resolved Problems Problem Noted Date Diagnosed Date Resolved Date Status post placement of imp lantable loop recorder 06/21/2020 06/21/2020 Palpitations 05/28/2018 05/28/2018 Bradycardia 04/03/2017 01/01/2021 Assessment & Plan (04/03/2017 10:54 AM CDT): Mild bradycardia, asymptomatic, not on any rate lowering medications. Muscle soreness 04/03/2017 05/26/2018 Assessment & Plan (04/03/2017 10:54 AM CDT): Exertional soreness of chest and arms, but not legs, more suggestive of deconditioning rather than myalgias secondary to statin. Postprocedural state 09/07/2014 017 Overview (10/25/2016): Peripheral vascular angioplasty status Atherosclerosis of coronary artery 09/06/2014 05/26/2018 Overview (10/25/2016): Coronary atherosclerosis Assessment & Plan (10/10/2017 8:24 PM CDT): 2013: CABG x5 Coronary artery disease is stable on medical therapy with no angina. Assessment & Plan (04/03/2017 10:56 AM CDT): 2013: CABG x5 Coronary artery disease is stable on medical therapy with no angina. Atrial fibrillation 09/06/2014 07/29/19 25 Overview (10/25/2016): Atrial fibrillation Multiple vessel coronary artery disease 05/30/2014 05/28/2018
--- OUTSIDE RECORDS SUMMARY | 2024-11-22 08:24 | XMS_ITS | Referral Summary ---
Author Organization [place] [address] Address [address] [place] [address] Care Team Providers Care Electronic Plotting System Operator Name Role Phone Letty Thorne MD Primary Care Provider Encounters Date Type Department Care Team Description 11/18/2024 Telephone [facility] Cardiology [address] [facility] [address] [place] [address] Bay Santiago MD 11/15/2024 Orders Only [facility] [address] [place] [address] Ashia Portillo MD 09/24/2024 Orders Only [facility] Cardiology [address] [place] [address] [address] [place] [address] Esther Bo MA 09/23/2024 Telephone [facility] Cardiology [address] [place] [address] [address] [place] [address] Juan Davis MD 09/21/2024 8:00 AM FLAG DECORATOR Office Visit [facility] Cardiology [address] [place] [address] [address] [place] [address] Bay Santiago MD Peripheral vascular disease; Bilateral carotid artery stenosis 08/31/2024 Telephone [facility] Cardiology [address] [place] [address] [address] [place] [address] Juan Davis MD BMP order from Last 3 Months Allergies Active Allergy Reactions Criticality Noted Date Comments Metoprolol Other (See comments),Headache Medium 03/17/2019 Severe flu-like symptoms Pravastatin Muscle pain Medium 04/03/2017 Sulfa (Sulfonamide Antibiotics) Flushing (skin) Low Medications fluticasone (FLONASE) 50 mcg/actuation nasal spray Administer 1 spray into each nostril daily as needed 7 Active levothyroxine (SYNTHROID, LEVOTHROID) 75 mcg tablet Take 1 tablet (75 mcg total) by mouth daily 8 Active acetaminophen (TYLENOL) 500 mg tablet Take 1-2 tablets (500-1,000 mg total) by mouth nightly Active aspirin 81 mg enteric coated tablet Take 1 tablet (81 mg total) by mouth daily Active cholecalcifero l (VITAMIN D-3) 50,000 unit capsule Active cyanocobalamin (Vitamin B-12) 1,000 mcg tabletIndicati ons:Prevention of Vitamin B12 Deficiency Take 1 tablet (1,000 mcg total) by mouth daily Active pantoprazole DR (PROTONIX) 40 mg EC tablet Take 1 tablet (40 mg total) by mouth daily 3 Active nitroglycerin (NITROSTAT) 0.4 mg SL tabletIndicati ons:Coronary artery disease involving m[place] coronary artery of muck[place]oot heart without angina pectoris Place 1 tablet (0.4 mg total) under the tongue every 5 (five) minutes as needed for chest pain 25 tablet 1 3 Active rosuvastatin (CRESTOR) 20 mg tablet Take 1 tablet (20 mg total) by mouth daily 30 tablet 11 5 09/06/19 26 Active Additional Information Patient taking differently: 40 mgoral Daily, Reported on 09/21/2024 clopidogreL (PLAVIX) 75 mg tabletIndicati ons:Coronary artery disease involving [place] coronary artery of [place] heart without angina pectoris Take 1 tablet (75 mg total) by mouth daily 90 tablet 2 5 Active losartan (COZAAR) 50 mg tablet Take 1 tablet (50 mg total) by mouth daily 30 tablet 3 5 09/25/19 26 Active amLODIPine (NORVASC) 10 mg tabletIndicati ons:hypertensi on Take 0.5 tablets (5 mg total) by mouth daily 90 tablet 3 5 Active amLODIPine (NORVASC) 10 mg tabletIndicati ons:hypertensi on Take 0.5 tablets (5 mg total) by mouth daily 4 11/19/19 25 Discontin ued(Reord er) Active Problems Problem Noted Date Diagnosed Date [...] (03/18/2019): Added automatically from request for surgery [id number] Squamous cell carcinoma 11/09/2018 Suprapubic pain 10/23/2018 Secondary hyperparathyroidism of renal origin Coronary artery disease invo lving muckleshoot coronary artery of [place] heart without angina pectoris 05/26/2018 Bilateral carotid [...] evaluation with an ultrasound Discussed treatment; if urep-ty-owbmpkky stenosis continue aspirin and statin therapy, if [...] pravastatin in the past, c ould hardly walk Tolerating rosuvastatin however. Assessment & [...] of hand 12/20/2015 Overview (10/31/2017): Description: halima bx r/o hak vs scc Neoplasm of upper extremity 12/20/2015 Overview (10/31/2017): Description: halima dennis, r/o nmsc Actinic keratosis 12/20/2015 History of [...] therapy because of significant vascular disease. Stable. Resolved Problems Problem Noted Date Diagnosed Date [...] Multiple vessel coronary artery disease 05/30/2014 05/28/2018 Social History Tobacco Use Types Packs/Day Years Used Date Smoking Tobacco: Former Cigarettes Q uit: 05/12/1988 Smokeless Tobacco: Never Tobacco Cessation:Counseling Given: Not Answered Alcohol Use Standard Drinks/Week Comments Not Currently 0 (1 standard drink = 0.6 oz pur e alcohol) quit 2014 wine Comments No Sex and Gender Information Value Date Recorded Sex Assigned at Not on file Legal Sex Female 8:37 PM FLAG DECORATOR Gender Identity Not on file Sexual Orientation Not on file Last Filed Vital Signs Vital Sign Reading Time Taken Comments Blood Pressure 172/74 09/21/2024 8:23 AM FLAG DECORATOR Pulse 72 09/21/2024 8:23 AM FLAG DECORATOR Temperature 36.4 C (97.6 F) 09/30/2022 12:29 PM CDT Respiratory Rate 18 09/30/2022 12:29 PM CDT Oxygen Saturation 97% 09/21/2024 8:23 AM FLAG DECORATOR Inhaled Oxygen Concentration - - Weight 64.9 kg (143 lb) 09/21/2024 8:23 AM FLAG DECORATOR Height 152.4 cm (5') 09/21/2024 8:23 AM FLAG DECORATOR Body Mass Index 27.93 09/21/2024 8:23 AM FLAG DECORATOR Plan of Treatment Not on file Medical Devices Implanted Type Area Bacon Stringer Device Identifier Shelf Expiration Date Model / Serial / Lot Medtronic Cardiac Rhythm Mgmt 9538 Reveal Linq Loop Recorder Cardiac - [id number] - [id number] Implanted:Qty : 1 on 04/15/2019 by Gary Ribeiro MD at [facility] Implantable Loop Recorder Left: Chest [employer] 09/17/2019 9538 / [id number] / Procedures Procedure Name Priority Date/Time Associated Diagnosis Comments SURGICAL PATHOLOGY Routine 11/15/2024 1: 15 PM CDT ELECTROCARDIOGRAM REPORT Routine 025 2:43 PM FLAG DECORATOR Peripheral vascular disease Bilateral carotid artery stenosis from Last 3 Months Results * Surgical pathology (11/15/2024 1:15 PM CDT) Skin, shave biopsy 11/15/2024 1:15 PM CDT 11/16/2024 6:40 AM CDT Narrative 11/17/2024 2:10 PM CDT [facility] results best viewed via link to PDF [facility] [address] [place] [address], [address], [place] [address] [email or web address] Note to Patients: This report may contain a detailed description of human tissue sent by a health care provider to the laboratory for pathologic evaluation. The content of this report is essential for diagnosis and may provide important critical findings. This information may be unfamiliar to patients to review without a medical professional present. It is advised that the patient review this report in the presence of a health care provider who can answer questions and explain the details. FINAL REPORT Patient Information: PATIENT NAME: KATHERINE QUINONES SEX: F : 1950 (Age: 74) Specimen Information: COLLECTED: 11/15/2024 RECEIVED: 11/16/2024 REPORTED: 11/17/2024 Submitting Physician Information: Ashia Portillo M.D. [facility] [place], [address] [place], [place] [address] [address], DERMATOPATHOLOGY REPORT RESULTS DIAGNOSIS: A. SKIN, LEFT UPPER ARM ANTERIOR, SHAVE BIOPSY: SQUAMOUS CELL CARCINOMA IN SITU B. SKIN, LEFT UPPER ARM POSTERIOR, SHAVE BIOPSY: SQUAMOUS CELL CARCINOMA IN SITU C. SKIN, RIGHT FOREARM, SHAVE BIOPSY: SQUAMOUS CELL CARCINOMA IN SITU sxt/ajrr By this signature, I attest that the above diagnosis is based upon my personal examination of the slides(and/or other material indicated in the diagnosis). Andrea Dinh M.D. Report Electronically Reviewed and Signed Out By Andrea Dinh M.D. 11/17/2024 14:10:37 CLINICAL INFORMATION A-C. PINK PEARLY PAPULE; NEOPLASM OF UNCERTAIN BEHAVIOR SPECIMEN DATA MICROSCOPIC DESCRIPTION: A-C. Atypical keratinocytes are present throughout the entire thickness of the epidermis. (D04.9) GROSS DESCRIPTION: A. Received in a formalin-containing bottle is a superficial fragment of peralta- yellow, flaky, and friable skin measuring 1.2 by 0.5 by 0.2 cm. The surgical margin is inked blue. The specimen is sectioned into 2 pieces and submitted entirely in a single cassette. Due to shrinkage, measurements may be different than those at time of procedure. B. Received in a formalin-containing bottle is a superficial fragment of peralta-yellow and crusted skin measuring 0.8 by 0.5 by 0.2 cm. The surgical margin is inked blue. The specimen is sectioned into 2 pieces and submitted entirely in a single cassette. Due to shrinkage, measurements may be different than those at time of procedure. C. Received in a formalin-containing bottle is a superficial fragment of peralta- yellow, crusted, and mildly bosselated skin measuring 0.7 by 0.7 by 0.7 cm. The surgical margin is inked blue. The specimen is sectioned into 3 pieces and submitted entirely in a single cassette. Due to shrinkage, measurements may be different than those at time of procedure. ag/dxv ICD-9 ZSD.1474 Clerical Data A; 04014 B; 47750 C; 85738 The characteristics of special, immunohistochemical, and immunofluorescence stains and in-situ hybridization tests performed by the [facility] were deemed acceptable in ongoing quality and reliability engineer measures and in compliance with regulations drawn from the Clinical Laboratory Improvement Act rb4106 (CLIA '88). Control reactions for all stains performed were deemed adequate and appropriate by a pathologist prior to evaluation of patient tissue. Some diagnoses were rendered with the assistance of laboratory-developed tests utilizing analyte-specific reagents; the performance characteristic of these tests were determined by [facility] and are not cleared or approved by the [place] Food an Drug administration. Laboratory developed test may only be performed in a facility that is certified by the [facility] as a high-complexity laboratory under CLIA '88. These tests are used for clinical purposes and are not investigational. us Ashia Portillo MD LAB PATHOLOGY ORDERABLES Elisa l Result * Electrocardiogram Report (09/21/2024 2:43 PM FLAG DECORATOR) Bay Santiago MD ECG ORDERABLES Final Result from Last 3 Months Insurance IDPA [facility] MEDICARE ADVANTAGE [facility] Address: [address] [address] [place] [address] [employer] MEDICARE ADVANTAGE [facility] MEDIC[facility] Address: [address] [address] [place] [address] [facility] MEDICARE ADVANTAGE [facility] MEDIC[facility] Address: [address] [address] [place] [address] [employer] Care Teams Electronic Plotting System Operator Relationship Specialty Start Date End Date Letty Thorne MD [address] [place] [address] [place] [address] PCP - General Internal Medicine 07/29/24
--- OUTSIDE RECORDS SUMMARY | 2024-11-22 08:24 | XMS_ITS | Clinical Summary ---
Author Organization [facility] Address [address] [place] [address] Care Team Providers Care Rigging Supervisor Name Role Phone Juan Davis MD Unavailable Carlos Rosas [facility] Primary Care Provid er Allergies Active Allergy Reactions Criticality Noted Date Comments Metoprolol Headache,Other (see comment) Medium 03/17/2019 Severe flu-like symptoms Pravastatin Myalgias Medium 04/03/2017 Sulfa Antibiotics Other (see comment) Medium 2 Medications * This document contains information received from the source organization and may not represent a complete record from that organization. aspirin EC 81 MG tablet Take 1 tablet (81 mg total) by mouth daily. Active clopidogrel (PLAVIX) 75 MG tablet Take 1 tablet (75 mg total) by mouth nightly. 05/06/2022 Active vitamin B-12 (CYANOCOBALAMIN) 1000 MCG tablet Take 1 tablet (1,000 mcg total) by mouth daily. Active nitroglycerin (NITROSTAT) 0.[address] 1 tablet (0.4 mg total) under the tongue every 5 (five) minutes as needed for Chest Pain. 08/27/2021 Active vitamin D3 (VITAMIN D) 25 mcg tablet Take 1 tablet (25 mcg total) by mouth daily. Active amLODIPine (NORVASC) 10 MG tablet Take 1 tablet every day by oral route. 04/08/2024 Active losartan (COZAAR) 50 MG tablet Take 1 tablet (50 mg total) by mouth daily. 09/24/2024 09/25/19 26 Active rosuvastatin (CRESTOR) 40 MG tabletIndication s:Elevated LDL cholesterol level Take 1 tablet (40 mg total) by mouth nightly at bedtime. 90 tablet 1 09/27/2024 Active pantoprazole EC (PROTONIX) 40 MG tabletIndication s:Gastroesophage al reflux disease without esophagitis Take 1 tablet (40 mg total) by mouth daily. 90 tablet 1 09/27/2024 Active levothyroxine (SYNTHROID) 75 MCG tabletIndication s:Hypothyroidism , unspecified type Take 1 tablet (75 mcg total) by mouth every morning. 90 tablet 1 09/27/2024 Active fluticasone propionate (FLONASE) 50 MCG/ACT nasal sprayIndications :Post-nasal drainage 1 spray by Nasal route daily. 18.2 mL 1 09/27/2024 12/27/19 25 Active Calcium 500 MG TabIndications:O steopenia Take 1,000 mg by mouth daily. 10/18/2024 Active folic acid (FOLVITE) 400 MCG tabletIndication s:Low folate Take 1 tablet (400 mcg total) by mouth daily. 10/18/2024 Active Active Problems Problem Noted Date Diagnosed Date Infrarenal abdominal aortic aneurysm, without ru pture 02/05/2024 Balance disorder 11/03/2023 History of fall 11/03/2023 Hematuria 10/21/2023 COVID-19 08/24/2023 Acute sinusitis 06/17/2023 Insomnia 06/17/2023 Rib pain 05/05/2023 Acute situational disturbance 12/02/2022 Vitamin D deficiency 12/02/2022 Iron deficiency anemia 12/02/2022 Anxiety 11/10/2021 Stress 11/10/2021 Incomplete uterovaginal prolapse 10/29/2021 Vaginal atrophy 10/29/2021 Essential hypertension 12/27/2020 Cobalamin deficiency 04/18/2020 Status post placement of implantable loop record er 04/21/2019 Overview (02/19/2023): [employer] Implantable Loop Recorder. Dx; Palpitations, Tachycardia. DOI 04/15/2019-Gema. Carelink remote monitoring. 02/02/2020-ILR explanted. Suprapubic pain 10/23/2018 Secondary hyperparathyroidism of renal origin (H HS/HCC) 09/02/2018 Bilateral carotid artery stenosis 05/26/2018 Chronic chest pain 10/10/2017 Overview (02/19/2023): Last Assessment & Plan: Chronic musculoskeletal CP Weight loss 10/10/2017 Overview (02/19/2023): Last Assessment & Plan: Pt is on a severe low fat diet, plus has poor appetite and is loosing wt. Counseled on nutrient dense floods and rec increase of good fats and oils. Abdominal pain 08/11/2017 Gastroesophageal reflux disease 08/11/2017 Renal impairment 08/11/2017 Bruit of left carotid artery 04/03/2017 Overview (02/19/2023): Last Assessment & Plan: 03/2017: 50-69% stenopsis of both carotids. Asymptomatic. Cont CAPT and statin Palpitations 04/03/2017 Overview (02/19/2023): Last Assessment & Plan: Had not documented any a arrhythmias, sounds like APCs or PVCs, nothing sustained. Patient reassured. Benign hypertension with CKD (chronic kidney disease) stage III 04/03/2017 Overview (02/19/2023): Last Assessment & Plan: Hypertension is not well-controlled. Claims white-coat HTN, but consistently high. Increase enalapril to 20 mg qd. Squamous cell carcinoma in situ (SCCIS) 04/01/20 17 Inflamed seborrheic keratosis 12/18/2016 Hypothyroidism 09/03/2016 Herpes simplex virus (HSV) infection 08/12/2016 Atherosclerosis 06/03/2016 Hyperlipidemia 06/02/2016 Depression 05/03/2016 Overview (02/19/2023): Depression, unspecified depression type History of five vessel coronary artery bypass Overview (02/19/2023): History of coronary artery bypass graft Squamous cell carcinoma of upper extremity 02/20 Actinic keratosis 12/20/2015 Neoplasm of unspecified beha vior of bone, soft tissue, and skin 12/20/2015 Overview (02/19/2023): Description: halima dennis r/o hak vs scc Neoplasm of upper extremity 12/20/2015 Overview (02/19/2023): Description: halima dennis, r/o nmsc Atrial fibrillation ([facility]) 09/06/2014 Overview (02/19/2023): Atrial fibrillation Peripheral vascular disease 09/06/2014 Overview (09/27/2024): Peripheral vascular disease Resolved Problems Problem Noted Date Diagnosed Date Resolved Date Flu-like symptoms 03/30/2024 09/27/2024 Cough 11/03/2023 09/27/2024 Upper respiratory infection 02/26/2023 09/27/2024 Encounters Date Type Department Care Team Description 10/25/[address] [phone] Carlos Rosas, SOCIAL SERVICES MANAGER-BC Blood Pressure 10/18/2024 [address] [place] [address] Carlos Rosas, SOCIAL SERVICES MANAGER-BC Mammography Order 10/18/2024 [address] [place] [address] Carlos Rosas, SOCIAL SERVICES MANAGER-BC Results 10/12/2024 12:13 PM CDT - 10/12/2024 11:59 PM CDT Hospital Encounter [facility] [address] [place], [place] [address] [address] Carlos Rosas, SOCIAL SERVICES MANAGER-BC Discharge Disposition: Home or Self Care (Routine Discharge) 10/12/2024 6:09 AM CDT - 10/12/2024 12:12 PM CDT Hospital Encounter [facility] [address] [place] [address] Carlos Rosas, SOCIAL SERVICES MANAGER- Discharge Disposition: Home or Self Care (Routine Discharge) 10/12/2024 Travel 09/29/2024 12:40 PM CDT Office Visit [facility] [address] [address] Robbin Morales MD New Patient (Abnormal labs/) 09/29/2024 Travel 09/27/2024 10:40 AM CDT Office Visit [address] [address] Carlos Rosas, [facility]- Establish Care 09/27/2024 Travel 09/22/2024 Patient Outreach [address] [address] Gisele Rich MA Pre-visit Gap Closure 09/01/2024 6:30 AM OFFSET PRESS OPERATOR APPRENTICE - 09/01/2024 11:59 PM OFFSET PRESS OPERATOR APPRENTICE Hospital Encounter [facility] [address] [place] [address] Juan Davis MD Discharge Disposition: Home or Self Care (Routine Discharge) 09/01/[address] [facility] [address] [place] [address] Juan Davis MD 09/01/2024 Travel from Last 3 Months Immunizations Immunization Administration Dates Next Due Fluzone High Dose (IIV, triv alent, 0.5mL) 05/29/2024 Influenza (Generic) 05/21/2023 Influenza Adult (Generic) 06/07/2019,,05/01/2017,2015 MODERNA COVID-19 (12+) MRNA, LNP-S, PF, 100 MCG/ 0.5 ML DOSE 10/19/2020 PFIZER COVID-19 BIVALENT (12 +) mRNA, LNP-S, PF, 30 MCG/0.3 ML DOSE 07/27/2022 Pneumococcal (Pneumovax 23) 08/15/2016 Family History Medical History Relation Comments No Known Problems Brother mvc No Known Problems Father Tuberculosis Mother Relation Status Comments Brother Father Mother Social History Tobacco Use Types Packs/Day Years Used Date Smoking Tobacco: Former Cigarettes 966 1987 Passive Smoke Exposure: Current Smokeless Tobacco: Never Tobacco Cessation:Counseling Given: No Alcohol Use Standard Drinks/Week Comments Not Currently 0 (1 standard drink = 0.6 oz pur e alcohol) B1300 Health Literacy Answer Date Recor ded How often do you need to hav e someone help you when you read instructions, pamphlets, or other written material from your doctor or pharmacy? Never 03/30/2024 [facility] Utilities Answer Date Recorded In the past 12 months has e [employer], gas, oil, or water [employer] threatened to shut off services in your home? No 03/30/2024 Humiliation, Afraid, Rape, and Kick questionnair e Answer Date Recorded Within the last year, have y ou been afraid of your partner or ex-partner? No 03/30/2024 Within the last year, have y ou been humiliated or emotionally abused in other ways by your partner or ex-partner? No Within the last year, have y ou been kicked, hit, slapped, or otherwise physically hurt by your partner or ex-partner? No 03/30/2024 Within the last year, have y ou been raped or forced to have any kind of sexual activity by your partner or ex-partner? No 03/30/2024 Social Connection and Isolat ion Panel [NHANES] Answer Date Recorded In a typical week, how many times do you talk on the phone with family, friends, or neighbors? More than three times a week 03/30/2024 How often do you get togethe r with friends or relatives? More than three times a week 03/30/2024 How often do you attend chur ch or congregation services? Never 03/30/2024 Do you belong to any clubs o r organizations such as judaism groups, unions, fraternal or athletic groups, or school groups? No 03/30/2024 How often do you attend meet ings of the clubs or organizations you belong to? Never 03/30/2024 Are you , , di vorced, , never , or living with a partner? 03/30/2024 AUDIT-C Answer Date Recorded Q1: How often do you have a drink containing alcohol? Never 03/30/2024 Q2: How many drinks containi ng alcohol do you have on a typical day when you are drinking? Patient does not drink Q3: How often do you have si x or more drinks on one occasion? Never 03/30/2024 Overall Financial Resource Strain (CARDIA) Answe r Date Recorded How hard is it for you to pa y for the very basics like food, housing, medical care, and heating? Not hard at all 03/30/2024 PHQ-2 Answer Date Recorded Patient Health Questionnaire-2 Score 0 09/29/2024 [facility] - Occupational Stress Questionnaire Answer Date Recorded Do you feel stress - tense, restless, nervous, or anxious, or unable to sleep at night because your mind is troubled all the time - these days? To some extent 03/30/2024 Hunger Vital Sign Answer Date Recorded Within the past 12 months, y ou worried that your food would run out before you got the money to buy more. Never true 03/30/20 24 Within the past 12 months, t he food you bought just didn't last and you didn't have money to get more. Never true 03/30/2024 PRAPARE - Transportation Answer Date Re corded In the past 12 months, has l ack of transportation kept you from medical appointments or from getting medications? No 03/21 In the past 12 months, has l ack of transportation kept you from meetings, work, or from getting things needed for daily living? No 03/30/2024 Housing Stability Vital Sign Answer Sunny e Recorded In the last 12 months, was t here a time when you were not able to pay the mortgage or rent on time? No 03/30/2024 In the past 12 months, how m any times have you moved where you were living? 1 03/30/2024 At any time in the past 12 m [facility], were you homeless or living in a custodial (including now)? No 03/30/2024 Comments No Sex and Gender Information Value Date Recorded Sex Assigned at Female 08/16/2024 7:04 PM OFFSET PRESS OPERATOR APPRENTICE Legal Sex Female 12:36 PM OFFSET PRESS OPERATOR APPRENTICE Gender Identity Female 08/19/2024 7:43 AM OFFSET PRESS OPERATOR APPRENTICE Sexual Orientation Straight 08/19/2024 7: 43 AM OFFSET PRESS OPERATOR APPRENTICE Last Filed Vital Signs Vital Sign Reading Time Taken Comments Blood Pressure 122/60 10/24/2024 2:00 PM CDT Pulse 57 09/29/2024 12:46 PM CDT Temperature 36.6 C (97.9 F) 09/29/2024 12:46 PM CDT Respiratory Rate 20 09/27/2024 10:23 AM CDT Oxygen Saturation 96% 09/29/2024 12:46 PM CDT Inhaled Oxygen Concentration - - Weight 64.9 kg (143 lb) 09/29/2024 12:46 PM CDT Height 154.9 cm (5' 1 ) 09/29/2024 12:46 PM CDT Body Mass Index 27.02 09/29/2024 12:46 PM CDT Plan of Treatment Upcoming Encounters Date Type Department Care Team (Late st Contact Info) Description 01/19/2025 8:[address] [address] [place], [place] [phone] Neto Arvizu MD [facility]. [address] [address] [place] [address] 01/20/2025 10:[address] [facility] [place], [place] [phone] Neto Arvizu MD [facility]. [address] [place] [address] 01/27/2025 10:30 AM CDT Office Visit [facility], [address] [place] [address] Neto Arvizu MD [facility]. [address] [place], [place] [address] 02/14/2025 8:00 AM CDT Office Visit [facility] Family & Internal Medicine [facility] [address] [place] [address] [place] [address] [phone] 04/05/2025 9:20 AM CDT Office Visit [facility] [address] [place] [phone] [facility] [address] [place] [address] 06/01/2025 1:40 PM OFFSET PRESS OPERATOR APPRENTICE Office Visit [facility] [place] [address] [place] [address] Robbin Morales MD 3 [facility] [address] [place] [address] Health Maintenance Due Date Last Done Comments Colorectal Cancer Screening Colonoscopy (10 Years) 1950 Hepatitis C 1969 Annual Medicare Wellness Visit 2016 COVID-19 Vaccine (2023- season) 2024 06/03/2024, 04/26/2023, 07/27/2022, Additional history exists Pneumococcal Vaccine: 50+ Years (2 of 2 - PCV) 09/26/2025 08/15/2016 Postponed from 08/15/2017 (Patient Refused) DTaP, Tdap and Td Vaccines (1 - Tdap) 09/27/2025 Postponed from 1970 (Patient Refused) Mammogram Screening 09/27/2025 Postpone d from 1991 (Patient Refused) RSV Immunization or 60+ Years (1 - Risk 60-74 years 1-dose series) 09/27/2025 Postponed fro m 2011 (Going to Outside Clinic) Zoster Vaccines (1 of 2) 09/27/2025 Pos tponed from 2001 (Going to Outside Clinic) PHQ-2 (Physician Junior) Completed 09/29/2024 Dexa Scan (General) Completed 10/12/2024 Meningococcal B Vaccine Aged Out No l onger eligible based on patient's age to complete this topic Meningococcal Vaccine Aged Out No isa marcia eligible based on patient's age to complete this topic RSV Immunizations Under 20 Months Aged Out No longer eligible based on patient's age to complete this topic Procedures Procedure Name Priority Date/Time Associated Diagnosis Comments BONE DENSITY/DEXA Routine 10/12/2024 12: 38 PM CDT Post-menopausal TSH W/REFLEX Routine 10/12/2024 6:11 AM CDT Hypothyroidism, unspecified type VITAMIN B12 / FOLATE Routine 10/12/2024 6:11 AM CDT Anemia due to vitamin B12 deficiency, unspecified B12 deficiency type COMPREHENSIVE METABOLIC PANEL Routine 10/12/2024 6:11 AM CDT Elevated LDL cholesterol level Essential hypertension CBC W/DIFF AUTOMATED Routine 10/12/2024 6:11 AM CDT Anemia due to vitamin B12 deficiency, unspecified B12 deficiency type LIPID PANEL Routine 10/12/2024 6:11 AM CDT Elevated LDL cholesterol level BASIC METABOLIC PANEL Routine 09/01/2024 6:40 AM OFFSET PRESS OPERATOR APPRENTICE Essential hypertension, malignant from Last 3 Months Results * BONE DENSITY/DEXA (10/12/2024 12:38 PM CDT) Anatomical Region Laterality Modality Bone Bone Density 10/12/2024 3:52 PM CDT Impressions 10/12/2024 3:53 PM CDT IMPRESSION: WHO Classification: Osteopenia. RECOMMENDATIONS: All patients should ensure an adequate intake of dietary calcium and vitamin D. The NOF recommend adults under the age of 50 need 1000 mg of calcium and 400-800 IU of vitamin D daily. Effective therapy for the prevention and treatment of osteoporosis include bisphosphonates. Follow-up: People with diagnosed cases of osteoporosis or at high risk for fracture should have regular bone mineral density test. For patients eligible for Medicare, routine testing is allowed once every 2 years. Testing frequency can be increased to one year for patients who have rapidly progressing disease, those who are receiving or discontinuing medical therapy to restore bone mass, or have additional risk factors. Referred By: CARLOS ROSAS Interpreted By: Rohit Mireles MD, 10/12/2024 3:52 PM Narrative 10/12/2024 3:53 [place] [address] EXAMINATION: BONE DENSITY/DEXA INDICATIONS: Postmenopausal COMPARISON: None TECHNIQUE: DEXA bone mineral density evaluation was performed in the AP projection over the lumbar spine and both hips utilizing standard imaging techniques. ASSESSMENT: The BMD measured at the AP spine L1-L4 is 0.922 g/cm? with a T-score of -1.1. The BMD measured at the left femoral neck is 0.836 g/cm? with a T-score of -0.1. The BMD measured at the left hip is 0.788 g/cm? with a T-score of -1.3. The BMD measured at the right femoral neck is 0.867 g/cm? with a T-score of 0.2. The BMD measured at the right hip is 0.818 g/cm? with a T-score of -1.0. FRAX 10-year fracture risk: Major Osteoporotic Fracture: 7.8% Hip Fracture: 0.6% Procedure Note Rohit Mireles MD - 10/12/2024 [facility] [address] [address] [facility] [place] [address] EXAMINATION: BONE DENSITY/DEXA INDICATIONS: Postmenopausal COMPARISON: None TECHNIQUE: DEXA bone mineral density evaluation was performed in the APprojection over the lumbar spine and both hips utilizing standard imagingtechniques. ASSESSMENT: The BMD measured at the AP spine L1-L4 is 0.922 g/cm? with a T-score of-1.1. The BMD measured at the left femoral neck is 0.836 g/cm? with a T-score of-0.1. The BMD measured at the left hip is 0.788 g/cm? with a T-score of -1.3. The BMD measured at the right femoral neck is 0.867 g/cm? with a T-scoreof 0.2. The BMD measured at the right hip is 0.818 g/cm? with a T-score of -1.0. FRAX 10-year fracture risk: Major Osteoporotic Fracture: 7.8% Hip Fracture: 0.6% IMPRESSION: WHO Classification: Osteopenia. RECOMMENDATIONS: All patients should ensure an adequate intake of dietary calcium andvitamin D. The NOF recommend adults under the age of 50 need 1000 mg ofcalcium and 400-800 IU of vitamin D daily. Effective therapy for theprevention and treatment of osteoporosis include bisphosphonates. Follow-up: People with diagnosed cases of osteoporosis or at high risk for fractureshould have regular bone mineral density test. For patients eligible forMedicare, routine testing is allowed once every 2 years. Testing frequencycan be increased to one year for patients who have rapidly progressingdisease, those who are receiving or discontinuing medical therapy torestore bone mass, or have additional risk factors. Referred By: CARLOS ROSAS Interpreted By: Rohit Mireles MD, 10/12/2024 3:52 PM Carlos Rosas [facility]- D[facility]A Elisa l Result * (ABNORMAL) VITAMIN B12 / FOLATE (10/12/2024 6:11 AM CDT) VITAMIN B12 S/P/B 815 193 - 986 PG/ML 10/12/2024 8:06 AM CDT [facility] FOLATE 5.7(L) 8.6 - 58.9 NG/ML 10/12/2024 8:06 AM CDT [facility] 10/12/2024 6:11 AM CDT [facility] Elisa l Result Performing Organization Address City/[facility]/ZIP Co de Phone Number [facility] [address] [place] [address], [place] [phone] * TSH W/REFLEX (10/12/2024 6:11 AM CDT) Pathologist [facility] TSH 1.855 0.358 - 3.74 uIU/ML 10/12/2024 8:06 AM CDT [facility] Comment: HIGH DOSES OF BIOTIN MAY INTERFERE WITH THIS TEST RESULT. CORRELATION TO CLINICAL HISTORY AND PRESENTATION RECOMMENDED. FREE T4 NOT INDICATED 10/12/2024 6:11 AM CDT [facility] Elisa l Result Performing Organization Address City/[facility]/ZIP Co de Phone Number [facility] [address] [place] [address], [place] [phone] * (ABNORMAL) COMPREHENSIVE METABOLIC PANEL (10/12/2024 6:11 AM CDT) [facility] GLUCOSE 95 70 - 99 MG/DL 10/12/2024 8:06 AM CDT [facility] BUN 21(H) 7 - 18 MG/DL 10/12/2024 8:06 [facility] CREATININE S/P/B 1.30(H) 0.55 - 1.02 MG/DL 10/12/2024 8:06 AM [facility] SODIUM S/P/B 140 136 - 145 MMOL/L 10/12/2024 8:06 AM [facility] POTASSIUM S/P/B 4.2 3.5 - 5.1 MMOL/L 10/12/2024 8:06 AM [facility] CHLORIDE S/P/B 102 100 - 108 MMOL/L 10/12/2024 8:06 AM [facility] CO2 26.9 21 - 32 MMOL/L 10/12/2024 8:06 AM [facility] CALCIUM S/P/B 9.7 8.5 - 10.1 MG/DL 10/12/2024 8:06 AM [facility] BILIRUBIN TOTAL S/P/B 0.7 0.2 - 1.2 MG/DL 10/12/2024 8:06 AM [facility] Comment: THIS ASSAY IS NOT RECOMMENDED FOR PATIENTS UNDERGOING TREATMENT WITH ELTROMBOPAG DUE TO THE POTENTIAL FOR FALSELY ELEVATED RESULTS. TOTAL PROTEIN S/P/B 8.8(H) 6.4 - 8.2 G/DL 10/12/2024 8:06 AM [facility] ALBUMIN S/P/B 3.6 3.4 - 5.0 G/DL 10/12/2024 8:06 AM [facility] AST 19 15 - 37 U/L 10/12/2024 8:06 AM [facility] ALT 14 14 - 55 U/L 10/12/2024 8:06 AM [facility] ALKALINE PHOSPHATASE S/P/B 68 50 - 136 U/L 10/12/2024 8:06 AM CDT [facility] ANION GAP 11.1 5 - 15 MMOL/L 10/12/2024 8:06 AM CDT [facility] BUN CREATININE RATIO 16.2 6 - 26 10/12/2024 8:06 AM T [facility] A/G RATIO 0.7(L) 1.0 - 2.0 RATIO 10/12/2024 8:06 AM T [facility] GFR ESTIMATE 43(L) >90 ML/MIN/1.7 3 M2 10/12/2024 8:06 AM T [facility] Comment: NOTE: eGFR is not calculated for patients <18 years of age. This is an estimated GFR calculation using the new CKD EPI creatinine equation without race and so does not require a correction factor for race. This estimated GFR should not be used for calculating drug doses. 10/12/2024 6:[address] [facility] Elisa l Result [facility] [address] [place] [address], * LIPID PANEL (10/12/2024 6:11 AM CDT) CHOLESTEROL 144 <200 MG/DL 10/12/2024 8:06 AM CDT [facility] TRIGLYCERIDES 103 <150 MG/DL 10/12/2024 8:06 AM T [facility] HDL 67 >40.0 MG/DL 10/12/2024 8:06 AM T [facility] LDL (CALCULATED) 56 <100 MG/DL 10/13/19 8:06 AM CDT [facility] NON HDL CHOLESTEROL 77 <130 MG/DL 10/12 8:06 AM CDT [facility] Comment: NOTE: WHEN THE TRIGLYCERIDES ARE >200 mg/dL, NON HDL C IS A SECONDARY TARGET OF THERAPY, WITH A GOAL 30 mg/dL HIGHER THAN THE IDENTIFIED LDL C GOAL. CHOL/HDL RATIO 2.1 0.0 - 4.5 10/12/2024 8:06 AM CDT [facility] VLDL CALCULATION 21 5 - 55 MG/DL 10/12/2024 8:06 AM CDT [facility] LIPID INTERPRETATION 10/12/2024 8:06 AM CDT [facility] Comment: NIH CONCENSUS REPORT RECOMMENDATIONS: ADULT CHILD LOW RISK: CHOLESTEROL <200 <170 TRIGLYCERIDE <150 --- HDL >=60 --- LDL <100 <110 BORDERLINE: CHOLESTEROL 200-239 170-199 TRIGLYCERIDE 150-199 --- HDL 40-59 --- LDL 100-159 110-129 HIGH RISK: CHOLESTEROL >=240 >=200 TRIGLYCERIDE >=200 --- HDL <40 --- LDL >=160 >=130 10/12/2024 6:[address] [facility] Elisa hough Result [facility] [address] [place] [address], * (ABNORMAL) CBC W/DIFF AUTOMATED (10/12/2024 6:11 AM CDT) [facility] WBC 5.63 4.50 - 11.00 x10'3/uL 10/12/2024 6:47 AM CDT [facility] RBC 3.82(L) 4.20 - 5.40 x10'6/uL 10/12/2024 6:47 AM CDT [facility] HGB 11.7(L) 12.0 - 16.0 G/DL 10/12/2024 6:47 AM CDT [facility] HCT 37.3(L) 38.0 - 48.0 % 10/12/2024 6:47 AM CDT [facility] MCV 97.6 81.0 - 99.0 FL 10/12/2024 6:47 AM CDT [facility] MCH 30.6 27.0 - 31.0 PG 10/12/2024 6:47 AM CDT [facility] MCHC 31.4(L) 32.0 - 36.0 G/DL 10/12/2024 6:47 AM CDT [facility] RDW 14.0 11.5 - 14.5 % 10/12/2024 6:47 AM CDT [facility] PLT 256 130 - 400 x10'3/uL 10/12/2024 6:47 AM CDT [facility] MPV 9.9 9.3 - 12.2 FL 10/12/2024 6:47 AM CDT [facility] CBC COMMENT AUTOMATED RBC MORPHOLOGY AND PLATELET EVALUATION NORMAL 10/12/2024 6:47 AM CDT [facility] NEUTROPHILS % 48.4 % 10/12/2024 6:47 AM CDT [facility] LYMPHOCYTES % 34.5 % 10/12/2024 6:47 AM CDT [facility] MONOCYTES % 11.2 % 10/12/2024 6:47 AM CDT [facility] EOSINOPHILS 4.6 % 10/12/2024 6:47 AM CDT [facility] BASOPHILS 0.9 % 10/12/2024 6:47 AM CDT [facility] IMMATURE GRANS % 0.4 % 10/13/19 6:47 AM CDT [facility] NRBC % 0.0 % 10/12/2024 6:47 AM CDT [facility] ABS. NEUTROPHILS TOTAL 2.73 1.80 - 7.70 x10'3/uL 10/12/2024 6:47 AM CDT [facility] ABS. LYMPHOCYTES 1.94 1.00 - 4.80 x10'3/uL 10/12/2024 6:47 AM CDT [facility] ABS. MONOCYTES 0.63 0.24 - 0.86 x10'3/uL 10/12/2024 6:47 AM CDT [facility] ABS. EOSINOPHILS 0.26 0.04 - 0.36 x10'3/uL 10/12/2024 6:47 AM CDT [facility] ABS. BASOPHILS 0.05 0.01 - 0.08 x10'3/uL 10/12/2024 6:47 AM CDT [facility] ABS. IMMATURE GRANULOCYTES 0.02 0.00 - 0.49 x10'3/uL 10/12/2024 6:47 AM CDT [facility] ABS. NUCLEATED RBC'S 0.00 0.00 - 0.01 x10'3/uL 10/12/2024 6:47 AM T [facility] 10/12/2024 6:11 AM CDT us Carlos E Robert [facility] Elisa l Result [facility] [address] [place] [address], [place] [phone] * (ABNORMAL) BASIC METABOLIC PANEL (09/01/2024 6:40 AM OFFSET PRESS OPERATOR APPRENTICE) [facility] GLUCOSE 99 70 - 99 MG/DL 09/01/2024 8:32 AM OFFSET PRESS OPERATOR APPRENTICE [facility] BUN 14 7 - 18 MG/DL 09/01/2024 8:32 AM [facility] CREATININE S/P/B 1.20(H) 0.55 - 1.02 MG/DL 09/01/2024 8:32 AM [facility] SODIUM S/P/B 142 136 - 145 MMOL/L 09/01/2024 8:32 AM [facility] POTASSIUM S/P/B 4.1 3.5 - 5.1 MMOL/L 09/01/2024 8:32 AM [facility] CHLORIDE S/P/B 106 100 - 108 MMOL/L 09/01/2024 8:32 AM [facility] CO2 26.7 21 - 32 MMOL/L 09/01/2024 8:32 AM [facility] CALCIUM S/P/B 9.3 8.5 - 10.1 MG/DL 09/01/2024 8:32 AM [facility] ANION GAP 9.3 5 - 15 MMOL/L 09/01/2024 8:32 AM [facility] BUN CREATININE RATIO 11.7 6 - 26 09/01/2024 8:32 AM [facility] GFR ESTIMATE 48(L) >90 ML/MIN/1.7 3 M2 09/01/2024 8:32 AM [facility] Comment: NOTE: eGFR is not calculated for patients <18 years of age. This is an estimated GFR calculation using the new CKD EPI creatinine equation without race and so does not require a correction factor for race. This estimated GFR should not be used for calculating drug doses. 09/01/2024 6:40 AM [facility] us Juan Davis MD LABORATORY Final Result [facility] [address] [place] [address], [place] [phone] from Last 3 Months Insurance [facility] MEDICAID Care Teams Rigging Supervisor Relationship Specialty Start Date End Date Carlos Rosas FNP- [address] [place] [address] PCP - General Nurse Practitioner Family 09/01/24 Juan Davis MD [address] [address] INTERVENTIONAL CARDIOLOGY 06/07/24
--- OUTSIDE RECORDS SUMMARY | 2024-11-22 08:24 | XMS_ITS | Continuity of Care Document ---
Author Organization [facility] Address [address] [employer] [place] [address] Phone Care Team Providers Care Re Examiner Name Role Phone Jose CRONIN, Say Unavailable Unavailable Allergies, Adverse Reactions, Alerts Substance Reaction Status Criticality Sulfa (Sulfonamide Antibiotics) Active No Information Medications Medication Instructions Dosage Effective Dates (start - stop) Status Comments Synthroid 50 mcg tablet take 1 tablet by oral route every day 50 MCG - Active pravastatin 20 mg tablet take 1 Tablet by oral route every day 20 MG - Active Plavix 75 mg tablet take 1 tablet by ora l route every day 75 MG - Active enalapril maleate 20 mg tablet take 1 tablet by oral route every day 20 MG - Active Procedures Procedure Date OFFICE/OUTPATIENT VISIT, EST OFFICE/OUTPATIENT VISIT, EST PREV VISIT, EST, AGE 40-64 OFFICE/OUTPATIENT VISIT, EST OFFICE/OUTPATIENT VISIT, EST OFFICE/OUTPATIENT VISIT, EST OFFICE/OUTPATIENT VISIT, EST OFFICE/OUTPATIENT VISIT, EST OFFICE/OUTPATIENT VISIT, EST OFFICE/OUTPATIENT VISIT, EST OFFICE/OUTPATIENT VISIT, EST PREV VISIT, NEW, AGE 40-64 Advance Directives Directive Yes / No Effective Date File Name No Information Encounters Encounter Description Practice Location Reason(s) For Visit Diagnoses Date Provider Providers Copied on Encounter OFFICE/OUTPA TIENT VISIT, EST [facility], [address] [place] [address], [id number], [place] tel:[phone] [facility] Hypothyroidism (chief complaint)globu lin1 (chief complaint)HTN (chief complaint)renal (chief complaint) Hypothyroidism Essential (primary) hypertensionAb normality of globulinRenal disease 6 6 Jose Deal. [address], [address], [place], [place], [address] , [place]. tel:[phone] Referring Provider: Say Garcia, Chaz [address], [place], [place], [id number]. tel:[phone] [facility], [address], [place], [place], [address], [place] [phone] [facility] No Information 6 Jose Deal. [address], [address], [place], [place], [address] , [place]. [phone] OFFICE/OUTPA TIENT VISIT, [facility], [facility] [address], [place], [place], [address], [place] [phone] [facility] cellulitis1 (chief complaint) Cellulitis of right upper limb 6 Jose Deal. [address], [address], [place], [place], [address] , [place]. tel:[phone] Referring Provider: Chaz Zhang [address], [place], [place], [id number]. tel:[phone] PREV VISIT, EST, AGE 40-64 [facility], [facility] [address], [place], [place], [address], [place] [phone] [facility] PHysical (chief complaint) Encounter for general adult medical exam w abnormal findingsHypoth yroidismHyperl ipidemiaEssent ial (primary) hypertension 6 Joes Deal. [address], [address], [place], [place], [id number] , [place]. [phone] Referring Provider: Chaz Zhang [address], [place], [place], [address]. tel:[phone] OFFICE/OUTPA TIENT VISIT, [facility], [address], [place], [place], [address], [place] tel:[phone] [facility] HTN (chief complaint)hypot hyroidism (chief complaint)HLP (chief complaint)chest pian1 (chief complaint) Chest painEssential (primary) hypertensionHy pothyroidism, unspecifiedHyp erlipidemia 6 Jose Deal. [address], [address], [place], [place], [address] , [place]. tel:[phone] Referring Provider: Chaz Zhang [address], [place], [place], [address]. tel:[phone] OFFICE/OUTPA TIENT VISIT, [facility], [address], [place], [place], [address], [place] tel:[phone] [facility] GERD1 (chief complaint)HLP (chief complaint)hypot hyroidism (chief complaint)HTN (chief complaint) Essential (primary) hypertensionPu re hypercholester olemiaHypothyr oidism, unspecifiedInc onclusive mammogram 6 Jose Deal. [address], [address], [place], [place], [address] , [place]. tel:[phone] Referring Provider: Chaz Zhang [address], [place], [place], [address]. tel:[phone] OFFICE/OUTPA TIENT VISIT, [facility], [address], [place], [place], [id number], [place] tel:[phone] [facility] stomach ulcer (chief complaint)chest pain1 (chief complaint)HLP (chief complaint)skin (chief complaint) GERD without esophagitisMix ed hyperlipidemia Abdominal painNevus, non-neoplastic 6 Jose Deal. [address], [address], [place], [place], [address] , [place]. tel:[phone] Referring Provider: Chaz Zhang [address], [place], [place], [address]. tel:[phone] OFFICE/OUTPA TIENT VISIT, [facility], [address], [place], [place], [address], [place] tel:[phone] [facility] HTN1 (chief complaint)HLP1 (chief complaint)renal disease1 (chief complaint)CAD1 (chief complaint) Mixed hyperlipidemia Hypothyroidism , unspecifiedEss ential (primary) hypertensionRe nal disease 5 Jose Deal. [address], [address], [place], [place], [address] , [place]. tel:[phone] Referring Provider: Sya Garcia, [address], [place], [place], [address]. tel:[phone] OFFICE/OUTPA TIENT VISIT, [facility], [address], [place], [place], [address], [place] tel:[phone] [facility] HLP (chief complaint)hypot hyroidism (chief complaint)HTN (chief complaint) Other and unspecified hyperlipidemia Unspecified essential hypertensionUn specified disorder of kidney and ureterHypothyr oidism 5 Jose Deal. [address], [address], [place], [place], [address] , [place]. tel:[phone] Referring Provider: Say Garcia, [address], [place], [place], [address]. tel:[phone] OFFICE/OUTPA TIENT VISIT, [facility], [address], [place], [place], [address], [place] tel:[phone] [facility] glucose (chief complaint)renal (chief complaint)HTN (chief complaint) HyperglycemiaR enal diseaseHypothy roidism 5 Jose Deal. [address], [address], [place], [place], [address] , [place]. [phone] Referring Provider: Say Garcia, [address], [place], [place], [address]. tel:[phone] OFFICE/OUTPA TIENT VISIT, [facility], [address], [place], [place], [address], [place] [phone] [facility] Medicine HLP (chief complaint)hemat uria (chief complaint)hypot hyroidism (chief complaint)HTN (chief complaint) BP - High blood pressureOther and unspecified hyperlipidemia Renal diseaseHematur ia 0 5 Jose Deal. [address], [place], [place], [address] , . tel:[phone] PREV VISIT, NEW, AGE 40-64 [facility], [address], [place], [place], [address], [phone] [facility] PHysical (chief complaint) Routine medical exam 5 Garcia Say. [address], [place], [place], [address] , . tel:[phone] Family History Family Member Type Diagnosis Age At Onset Father Problem (finding) old age Mother Problem (finding) Brother Problem (finding) Brother Problem (finding) Alzheimer's disease Father Problem (finding) Mother Problem (finding) old age Payers Payer name Insurance type Covered green party ID Authoriza tion(s) No Information Social History Type Description Quantity Date Captured Comments Alcohol Use Details wine 1 glass monthly Caffeine Use Details Unknown Tobacco Use Status Ex-cigarette smoker 016 Smoking Status Former smoker Sex Female Vital Signs Date / Time: Height Weight BMI Pulse Rate Blood Pressure Temperature Respiratory Rate Body Surface Area Head Circumference BMI percentile Pulse Ox Inhaled Ox 12:20 PM 157.48 cm 139.00 lbs 25.4 2 kg/m eter (2) 57 /min 150/85 mm[Hg] 98.5 F 18 /min Chief Complaint And Reason For Visit From encounter dated '04/25/2016 11:30'. Hypothyroidism (chief complaint). Description: Pt has low thtyroid. pt is on 25 mcg daily and her thyroid is very low. Pt used to take 75 mcg which was too high. Pt supopses to go up to 50 mcg but she never got the msg?? Pt feels fatigue globulin1 (chief complaint). Description: Pt has history of mild high globulin. Her repeat lab workis normal. HTN (chief complaint). Description: Pt takes enalapril and her bp is high today. Pt denie any chestpain or headache. her BP at home is 120/80 per pt Pt told me she has white coat renal (chief complaint). Description: Pt has stage 3 renal disease Pt is seeing nephrology and is being monitored Plan Of Treatment Date Type Action Status Referral Ordered: Dermatology (related to Nevus, non-neoplastic) ordered Referral Ordered: COLONOSCOPY AND BIOPSY ordered Referral Ordered: Referrals: Dermatology. Evaluate and treat ordered Referral Ordered: US EXAM, ABDOM, COMPLETE ordered Referral Ordered: MAMMOGRAM, SCREENING ordered Referral Ordered: Nephrology (related to Renal disease) ordered Referral Ordered: Referrals: Nephrology. Evaluate and treat ordered Referral Ordered: US THYROID ordered History Of Present Illness Encounter Date Complaint History Of Prese nt Illness Hypothyroidism Pt has low thtyr oid. pt is on 25 mcg daily and her thyroid is very low. Pt used to take 75 mcg which was too high. Pt supopses to go up to 50 mcg but she never got the msg?? Pt feels fatigue globulin1 Pt has history o f mild high globulin. Her repeat lab work is normal. HTN Pt takes enalapr il and her bp is high today. Pt denie any chest pain or headache. her BP at home is 120/80 per pt Pt told me she has white coat renal Pt has stage 3 r enal disease Pt is seeing nephrology and is being monitored cellulitis1 Pt recently had right forearm skin lesion removed two weeks ago and she developed a red and slighlty painful streak from the forearm wound radiating through her anterior elbow to the medial of her right upper arm about 6 days ago. Pt went to ER and had negative duplex doppler study. Pt was given clindamycin and she notices almost 90 % improvement in her symptoms Pt notices slighlty bruisng where the red streak was. Pt denies any pain, fever, SOB, warmth. PHysical Pt needs annual physical. Pt has hypothryodism. Her TSH is low. Pt denies any chest pain or headache. Pt takes pravastatin and her cholesterol is high. Pt denies any myalgia. pt also takes enlapril for HTN and plavix for PAD. Pt sees cardiology. Pt denies any chest pain or headache. Pt has CAD with bypass. Pt denies any other complaints HTN Pt takes enlapri l and her BP is stable. Pt recently supposes to do EGD and colonoscopy but she had panic attacks and her BP went to 200. Pt did not get the procedure done. Pt denies any abd pain. Pt is off omeprzole. Pt does not want to do ultrasound now. hypothyroidism Pt has hypothyro idismn. Pt takes syntroid and doing ok. HLP Pt takes pravast atin. Pt denies any myalgia. Pt is on low fat and low carb diet chest pian1 Pt has intermitt ent chest pain since the panic attacks. Pt denies any exertinal chset pain. Pt has sharp pain around chest sometimes. Pt denies any acute chest pain now GERD1 Pt has intermitt ent GERD and she no longer has abd pain. Pt has order from GI for abd ultrasound but has not done so yet Pt stop taking omerpzole on her own for unknown resons. Pt will have EGD and colonoscopy in 11/03. HTN Pt takes enlapri l. Her BP is ok. Pt has PAD and she takes plavix and baby ASA daily. Pt denies any new complaints Pt denies any chest pain. Pt also has CAD and she sees cardiology. No chest pain hypothyroidism Pt has hypothyro idism. Pt takes synthroid. Pt denies any chest pain or headache HLP Pt is back on pr avastatin on her own. Pt denies any myalgia. Pt denies any side effect. Pt is on low fat and low carb diet skin Pt notices scaly skin dorsal right hand for several months Pt denies any bleeding HLP Pt has stopped p ravastatin for two weeks. Her lipid profile is better now. Pt denies any myalgia chest pain1 Pt c/o sharp antonio st pain for years when she inhaler cold air. Pt denies any wrosening symptoms. Pt denies any exertional chest pain. Pt feels SOB when she breathing cold air. Pt deneis sob otherwise stomach ulcer Pt c/o midepigas tric pain and some nonbloody diarrhea for two weeks, Pt states that she has sharp pain is only at night after takign pravastatin. Pt stoped pravastatin for several days and she notices pain slighlty better as well as diarrhea. Pt denies any nausea, vomiting. Pt has history of GERD but she has not bee taking omeparzole for several months. Pt stats that she stopped it since she no longer has gERD. Pt notices loss of appetite CAD1 Pt has CAD s/p C ABG and PAD and she is on ASA, plavvix. Pt is off amidarone and coumadin Pt no longer has afib. pt denies any chest pain renal disease1 Pt has chronic r enal disease Pt is seeing nephrology now. Pt had renal ultrasound done and some lab done and she supposes to see Dr. Pena in July. HLP1 Pt has HLP. Pt h as been taking pravastatin. Pt denies any myalgia. Pt did not do lab work. Pt is working on low fat and low carb diet HTN1 Pt has HTN. Pt t akes enalapril and her BP is stable. Pt denies any chest apin HTN Pt has HTN. Pt t akes enlapril. Her BP is high today. Pt again states that her BP is around 120/80 at home and deferred med change hypothyroidism Pt has normal th yroid ultrasound. Pt takes synthroid Pt denies any chset pain, palpitation, headache HLP Pt has HLP. Pt s tates that she could not tolerate zocor and she stopped it. Pt told me she had some foot swelling but has not had any swelling since stopping zocor. Pt denies any myalgia HTN BP high in offic e. Pt take enlapriol 20 mg daily. She brought her BP cuff today. Pt states that her BP is around 120/80 at home. Pt denies any chest pain, heaedache, Pt broguht her BP cuff from home today and the reading is 180/90. renal Pt has mild esther l disease. Pt denies any urinary output problem. glucose Pt has mild high glucose on lab. Pt denies any polyuria, polydipsia HTN Pt takes enalapr il 20 mg daily. Her BP is around 120 at home per patient. Pt denies any chest pain or headahe hypothyroidism Pt takes synthro id. Her TSH is ok hematuria Pt has mild colleen turia and some reanl dysfunction. Pt denies any history of renal disease. Pt denies any urinary output symptoms HLP Pt has HLP. Pt u sed to take pravacol but her drug counselor took her off recently for unkonwn reason. PHysical 64 yo female nee ds annual physical. Pt recently had 5 vessle bypass surgery at [facility]. Pt denies any chest pain Pt went to afib after surgery. Pt is on amidraone now. Pt takes ASA, enalapril. Pt also has hypothyroidism and she takes synthroid. Pt also has GERD and she takes omeprazole. Pt also ? some arterial embolic disease due to ? 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 Pt has some arterial opening surery by Dr. Ross recently and she is seeing podiatriist Pt denies any other complaints Instructions Date Instruction Additional Infor nba No Information Assessments Type Assessment Date assessment Hypothyroidism assessment Essential (primary) hypertension assessment Abnormality of globulin 016 assessment Renal disease Mental Status Date Cognitive Assessment Orientation - [place] ed to time, place, person, situation.
--- OUTSIDE RECORDS SUMMARY | 2024-11-22 08:25 | XMS_ITS | Clinical Summary ---
Author Organization [facility] Address [address] [place] [address] Care Team Providers Care Mortar Carrier Name Role Phone Unavailable Primary Care Provider Unavailabl e Source Comments [facility] [employer],non-owned Affiliates and Associated Physician Practices is amultiple site organization consisting of ambulatory clinics and hospital sitesin [place], [place], [place] and [place]. This disclosure is being madepursuant to the Care Everywhere program and may not contain all information available regarding this patient. Last updated 18.[facility] [employer] Social History Tobacco Use Types Packs/Day Years Used Date Smoking Tobacco: Never Assessed Comments Unknown Sex and Gender Information Value Date Recorded Sex Assigned at Not on file Legal Sex Female 9:27 AM CDT Gender Identity Not on file Sexual Orientation Not on file Plan of Treatment Health Maintenance Due Date Last Done Comments BONE DENSITY TESTING 1950 COLOGUARD (AGES 45-75) - COLON CA SCREENING 1950 COLON MONITORING 1950 COLONOSCOPY - COLON CA SCREENING 1950 CT COLONOGRAPHY - COLON CA SCREENING 1950 Colorectal Cancer Screening 1950 FIT - COLON CA SCREENING 1950 FLEX SIG - COLON CA SCREENING 1950 MAMMOGRAM 1950 HEPATITIS C SCREENING 04/07/1969 DTAP/TDAP/TD VACCINES (1 - Tdap) 1970 PNEUMOCOCCAL VACCINE 50+ (1 of 1 - PCV) 2001 ZOSTER VACCINE (1 of 2) 2001 COVID-19 VACCINE (4 - season) 2024 07/27/2022, 10/19/2020, 09/26/2020 DEPRESSION SCREENING 07/21/2024 INFLUENZA VACCINE (Season Ended) 2025 05/21/2023, 06/07/2019, 05/18/2018, Additional history exists Respiratory Syncytial Virus (RSV) Vaccine Pt: or over 60 yrs (1 - 1-dose 75+ series) 2026 HEPATITIS B VACCINE Aged Out No longe r eligible based on patient's age to complete this topic HIB VACCINE Aged Out No longer eligi ble based on patient's age to complete this topic HPV VACCINE Aged Out No longer eligi ble based on patient's age to complete this topic MENINGOCOCCAL (Group B) VACCINE SHARED DECISION-MAKING Aged Out No longer eligible based on patient's age to complete this topic MENINGOCOCCAL GROUPS A/C/Y/W VACCINE Aged Out No longer eligible based on patient's age to complete this topic Insurance
--- OUTSIDE RECORDS SUMMARY | 2024-11-22 08:25 | XMS_ITS ---
Author Organization 1 OF [facility] Address [address] [place] [address] Care Team Providers Care Rn Mobile Name Role Phone Letty Thorne Primary Care Provider Unavail Leighton Mccarty Unavailable [phone] Wilfrid CRONIN, Rea Unavailable Unavailable Allergies Allergen (clinical drug ingredient) Drug/Non Drug Allergy documented on EMR Reaction Allergy Type Onset Date Status metoprolol metoprolol (uncoded) Unknown Allergy Active pravastatin Pravachol (uncoded) Unknown Allergy Active Substance with sulfonamide structure and antibacterial mechanism of action (substance) sulfa (uncoded) Unknown Allergy Active REASON FOR VISIT High risk foot care Medications Medication SIG (Take, Route, Frequency, Duration) Notes Start Date End Date Status Losartan Potassium A ctive Folic Acid Active Calcium Active Lisinopril 20 MG TAKE 1 TABLET BY RUDDY ONCE DAILY Oral for 30 Days Not-Takin g amLODIPine Besylate Active Omeprazole Active Baby Aspirin Active Enalapril Maleate Ac tive Levothyroxine Sodium Active Plavix Active Rosuvastatin Calcium Active Vital Signs Height 61 in 11/16/2024 Weight 138 lbs 11/16/2024 BMI 26.07 kg/m2 11/16/2024 Encounters Encounter Location Date Provider Diagnosis 1 OF [facility] [address] [place] [address] 11/16/2024 Leighton James Generalized atherosclerosis I70.91 ; Callus of foot L84 ; Onychogryphosis L60.2 ; History of amputation of toe Z89.429 ; At risk for falls Z91.81 ; Physical debility R53.81 ; PAD (peripheral artery disease) I73.9 and Extremity atherosclerosis with resting pain I70.229 Assessments Encounter Date Diagnosis (ICD Code) Assessment Notes Treatment Notes Treatment Clinical Notes Section Notes 11/16/2024 Generalized atherosclerosis (ICD-10 - I70.91) Considering the associated comorbidities and physical exam findings today, this patient is at substantial risk of developing serious foot complications in the absence of regular and professional palliative foot care 11/16/2024 Callus of foot (ICD-10 - L84) 11/16/2024 Onychogryphosis (ICD-10 - L60.2) 11/16/2024 History of amputation of toe (ICD-10 - Z89.429) 11/16/2024 At risk for falls (ICD-10 - Z91.81) 11/16/2024 Physical debility (ICD-10 - R53.81) 11/16/2024 PAD (peripheral artery disease) (ICD-10 - I73.9) She was advised against wearing sandals/open toe shoes. If she does, she was advised to inspect her feet multiple times throughout the day. She will continue walking as recommended by her vascular surgeon. 11/16/2024 Extremity atherosclerosis with resting pain (ICD-10 - I70.229) 11/16/2024 Other She purchased Ameri-gel lotion today. Plan Of Treatment Treatment Notes Assessment Notes Generalized atherosclerosis Considering the associated comorbidities and physical exam findings today, this patient is at substantial risk of developing serious foot complications in the absence of regular and professional palliative foot care PAD (peripheral artery disease) She was advised against wearing sandals/open toe shoes. If she does, she was advised to inspect her feet multiple times throughout the day. She will continue walking as recommended by her vascular surgeon. Other She purchased Ameri- gel lotion today. Next Appt Details Follow Up: 10-12 weeks or co ntact office PRN, Reason: Provider Name:Leighton Lynn Jacob, 01/25/2025 07:30:00 AM, [address], [place], [address], Procedure Notes * Category Sub-Category Detail Notes PALLIATIVE FOOT CARE: Callus paring: (06633) Le ss than five calluses as noted above reduced with a sterile scalpel blade Nail debride (86550): Debridement of at least six mycotic and/or hypertrophic nails performed:, utilizing manual and electric debridement the affected nails were reduced the nails in length and thickness with curettage of debris from nail margins performed as needed. Nail thickness reduced by:, 10% DME: Retail DME recommended: Amerigel lotion Progress Notes * Gavin QUINONESOB: (74 yo F)Acc No.[id number]:11/16/2024 Progress Note Patient: Katherine PAUL Provider: Sunshine James DPM :1950 A ge:74 Y S ex:Female Date:11/16/2024 Address:[address] [place] [address] [address] [facility], [place] [address] Pcp:Letty Thorne Subjective: * Chief Complaints: * H igh risk foot care * HPI: Mata A assisting with visit:: Chart Prep Jhonny schuster. HPI/Rooming: Licha. Leonor morris reason for visit:: 74 y/o female RTO for at risk foot care. She denies any nail or callus concerns. She was having pain in her left foot/bunion, but it has resolved. She believes she may have stepped on it wrong to cause the intial pain. Patient also RTO for f/u of PAD. Since her last visit, she was evaluated by a vascular surgeon, Dr. Santiago, a [facility] who recommended she walk more frequently and repeat her blood flow testing in November. * Medical History: * Surgical History: A putation of toes (3 toes) 5 bypass open heart surgury Phlebectomy b/l * Hospitalization/Major Diagno stic Procedure: * Medications: T akingLosartan Potassium Folic Acid Calcium amLODIPine Besylate Rosuvastatin Calcium Enalapril Maleate Levothyroxine Sodium Plavix Baby Aspirin Omeprazole Taking Losartan Potassium Taking Folic Acid Taking Calcium Taking amLODIPine Besylate Taking Rosuvastatin Calcium Taking Enalapril Maleate Taking Levothyroxine Sodium Taking Plavix Taking Baby Aspirin Taking Omeprazole Not-Taking/PRNLisinopril 20 MG Tablet TAKE 1 TABLET BY MOUTH ONCE DAILY Oral Medication List reviewed and reconciled with the patientNot-Taking/PRN Lisinopril 20 MG Tablet TAKE 1 TABLET BY MOUTH ONCE DAILY Oral Medication List reviewed and reconciled with the patient * Allergies: s ulfaPravacholmetoprolol Objective: * Vitals: W t:138lbs, Wt-k.6 kg, [...] Ambulatory assistive device: n one. Shoes today: diabetic shoes with inserts. L ower Extremity VASCULAR: : Pulses: D [...] subungual debris noted. Hyperkeratotic lesions LEFT foot: d istal 3rd. Hyperkeratotic lesions RIGHT foot: p lantar medial 1st, distal 3rd, sub 5th MTH. L ower Extremity NEURO: : Neurological status: n ormal sensation to sharp/ dull with normal and symmetric muscle tone bilateral. L ower Extremity MSK: : Gait G ait appear relatively unstable with some difficulty with balance apparent. Lower extremity inspection and palpation: Plantar fat pad atrophy noted b/l. Amputation noted: Left foot:partial amputation of [id number] and 5th digits;Right foot: partial amputation of [...] 2. P AD (peripheral artery disease) Notes: She was advised against wearing sandals/open toe shoes. If she does, she was advised to inspect her feet multiple times throughout the day. She will continue walking as recommended by her vascular surgeon. 3. O thers Notes: She purchased Ameri-gel lotion today. * Procedures: P ALLIATIVE FOOT CARE:: Callus paring: ( 96618) Less than five calluses as noted above reduced with a sterile scalpel blade. Nail debride (05378): D ebridement of at least six mycotic and/or hypertrophic nails performed:, utilizing manual and electric debridement the affected nails were reduced the nails in length and thickness with curettage of debris from nail margins performed as needed. Nail thickness reduced by:, 10%. D ME:: Retail DME recommended: A merigel lotion. * Procedure Codes: 1 1056 TRIM SKIN LESIONS, 2 TO 4, Modifiers: Q7 , [id number] DEBRIDE NAIL, 6 OR MORE, Modifiers: Q7 * Preventive Medicine: Counseling: C are goal follow-up plan: BMI counseling provided to patient:?Lifestyle education Screenings: F ALL RISK SCREENING Fall Risk Assessment: N o falls in the past year * Follow Up: 1 0-12 weeks or contact office PRN * Images: * Sign off status: Completed true * Provider: Sunshine James DPM Date: 0 11/16/2024 Generated for Iram foster/Faxing/eTransmitting on: 0 11/22/2024 08:24 AM CDT History and Physical Notes * HPI (History of Present Illness) Category Sub-Category Detail Notes Category Not es Primary reason for visit: 74 y/o female RTO for at risk foot care. She denies any nail or callus concerns. She was having pain in her left foot/bunion, but it has resolved. She believes she may have stepped on it wrong to cause the intial pain. Patient also RTO for f/u of PAD. Since her last visit, she was evaluated by a vascular surgeon, Dr. Santiago, at [facility] who recommended she walk more frequently and repeat her blood flow testing in November. MA assisting with visit: HPI/Rooming: , Licha Chart Prep Licha Examination Category Sub-Category Detail Notes Category Not es General Examination Mental status: Cooperative, Oriented to person, place and time, Mood and affect: normal, Judgement and intellect: normal with appropriate response to questions Shoes today: diabetic shoes with inserts Ambulatory assistive device: none Constitutional / Appearance: [...] subungual debris noted Hyperkeratotic lesions LEFT foot: distal 3rd Hyperkeratotic lesions RIGHT foot: plant ar medial 1st, distal 3rd, sub 5th MTH
--- OUTSIDE RECORDS SUMMARY | 2024-11-22 08:25 | XMS_ITS | Clinical Summary ---
Author Organization [facility] [address] Address [address] [place] [address] Care Team Providers Care P[employer] Wiener Name Role Phone Letty Thorne MD Primary Care Provider [phone] Allergies Active Allergy Reactions Criticality Noted Date [...] mg SL tabletIndicati ons:Coronary artery disease involving umatilla tribe coronary artery of umatilla tribe heart without angina pectoris Place 1 tablet [...] 75 mg tabletIndicati ons:Coronary artery disease involving umatilla tribe coronary artery of umatilla tribe heart without angina pectoris Take 1 tablet [...] (03/18/2019): Added automatically from request for surgery [id number] Squamous cell carcinoma 11/09/2018 Suprapubic pain 10/23/2018 Secondary hyperparathyroidism of renal origin Coronary artery disease invo lving umatilla tribe coronary artery of umatilla tribe heart without angina pectoris 05/26/2018 Bilateral carotid [...] evaluation with an ultrasound Discussed treatment; if akkz-rg-[id number] stenosis continue aspirin and statin therapy, if [...] Assessment & Plan (04/03/2017 10:56 AM CDT): 2014: CABG x5 Coronary artery disease is stable on medical therapy with no angina. Atrial fibrillation 09/06/2014 07/29/19 25 Overview (10/25/2016): Atrial fibrillation Multiple vessel coronary artery disease 05/30/2014 05/28/2018 Encounters Date Type Department Care Team Description 11/18/2024 Telephone [facility] Cardiology [address] [place] [address] Bay Santiago MD 11/15/2024 Orders Only [facility] [address] [place] [address] Ashia Portillo MD 09/24/2024 Orders Only [facility] Cardiology [address] [place] [address] Esther Bo MA 09/23/2024 Telephone [facility] Cardiology [address] [place] [address] Juan Davis MD 09/21/2024 8:00 AM RECORDS SPECIALIST Office Visit [facility] Cardiology [address] [place] [address] Bay Santiago MD Peripheral vascular disease; Bilateral carotid artery stenosis 08/31/2024 Telephone [facility] Cardiology [address] [place] [address] Juan Davis MD BMP order from Last 3 Months Surgical History Surgery Date Site/Laterality Comments TUBAL LIGATION TONSILLECTOMY TOE AMPUTATION Bilateral right - 4th left- 4th & 5th WRIST SURGERY Left CORONARY ARTERY BYPASS GRAFT 07/21/2013 - 07/20/2014 cabg x 5 EXPLORATORY LAPAROTOMY CARDIAC CATHETERIZATION 07/21/2013 - 07/20/2014 BASAL CELL CARCINOMA EXCISION SQUAMOUS CELL CARCINOMA EXCISION x 4 DILATION AND CURETTAGE OF UTERUS Medical History Medical History Date Comments Coronary artery disease Hyperlipidemia Arrhythmia Thyroid disease PVC (premature ventricular contraction) Hypertension History of skin cancer basal robina l and squamous cell Family History Medical History Relation Name Comments Tuberculosis Mother Relation Name Status Comments Father UNKNOWN Mother Social History Tobacco Use Types Packs/Day [...] on file Legal Sex Female 8:37 PM RECORDS SPECIALIST Gender Identity Not on file Sexual Orientation Not on file Obstetrics History Para Term AB IAB SAB Ectopic Multiple Livin g Live Births 4 4 4 4 Date Outcome GA Total Labor Labor/3rd Weight Sex Type Anes PTL Corinne A1 A5 Name Clin Term Term Term Term Last Filed Vital Signs Vital Sign Reading Time Taken Comments Blood Pressure 172/74 09/21/2024 8:23 AM RECORDS SPECIALIST Pulse 72 09/21/2024 8:23 AM RECORDS SPECIALIST Temperature 36.4 C (97.6 F) 09/30/2022 12:29 PM CDT Respiratory Rate 18 09/30/2022 12:29 PM CDT Oxygen Saturation 97% 09/21/2024 8:23 AM RECORDS SPECIALIST Inhaled Oxygen Concentration - - Weight 64.9 kg (143 lb) 09/21/2024 8:23 AM RECORDS SPECIALIST Height 152.4 cm (5') 09/21/2024 8:23 AM RECORDS SPECIALIST Body Mass Index 27.93 09/21/2024 8:23 AM RECORDS SPECIALIST Plan of Treatment Health Maintenance Due Date Last Done Comments Breast Cancer Screening-Mammogram 1950 Colon Cancer Screening-Colonoscopy 1950 Depression Screening 1950 Fall Risk Assessment 1950 Hepatitis C Screening 1950 DTaP/Tdap/Td Vaccine (1 - Tdap) 1962 Hepatitis B Screening 1969 Zoster Vaccine (1 of 2) 2001 Well Visit 65+ 2016 Pneumococcal vaccine 65+ (2 of 2 - PCV) 08/15/2017 08/15/2016 Osteoporosis Screening-Bone Density Scan 10/12/2026 10/12/2024 Influenza Vaccine Completed 05/29/2024, , 06/07/2019, Additional history exists Medical Devices Implanted Type Area Education Diagnostician Device Identifier Shelf Expiration Date Model / Serial / Lot Medtronic Cardiac Rhythm Mgmt 9538 Reveal Linq Loop Recorder Cardiac - [id number] - [id number] Implanted:Qty : 1 on 04/15/2019 by Gary Ribeiro MD at [facility] Implantable Loop Recorder Left: Chest [employer] 09/17/2019 9538 / [id number] / Procedures Procedure Name Priority Date/Time Associated Diagnosis Comments SURGICAL PATHOLOGY Routine 11/15/2024 1: 15 PM CDT ELECTROCARDIOGRAM REPORT Routine 025 2:43 PM RECORDS SPECIALIST Peripheral vascular disease Bilateral carotid artery stenosis from Last 3 Months Results * Surgical pathology (11/15/2024 1:15 PM CDT) Skin, shave biopsy 11/15/2024 1:15 PM CDT 11/16/2024 6:40 AM CDT Narrative 11/17/2024 2:10 PM CDT EPIC results best viewed via link to PDF [facility], [address], [place] [address] [email or web address] Note to Patients: This report may contain [...] 11/17/2024 Submitting Physician Information: Ashia Portillo M.D. [facility], [address] [place] [address], DERMATOPATHOLOGY REPORT RESULTS DIAGNOSIS: A. SKIN, LEFT [...] slides(and/or other material indicated in the diagnosis). Adnrea Dinh M.D. Report Electronically Reviewed and Signed [...] procedure. ag/dxv ICD-9 ZSD.1474 Clerical Data A; 77853 B; 73112 C; 45620 The characteristics of special, immunohistochemical, and immunofluorescence stains and in-situ hybridization tests performed by the [facility] were deemed acceptable in ongoing quality auditor measures and in compliance with regulations drawn from the Clinical Laboratory Improvement Act rz1200 (CLIA '88). Control reactions for all stains performed were deemed adequate and appropriate by a pathologist prior to evaluation of patient tissue. Some diagnoses were rendered with the assistance of laboratory-developed tests utilizing analyte-specific reagents; the performance characteristic of these tests were determined by [facility] and are not cleared or approved by the [place] Food an Drug administration. Laboratory developed test may only be performed in a facility that is certified by the [facility] as a high-complexity laboratory under CLIA '88. These tests are used for clinical purposes and are not investigational. us Ashia Portillo MD LAB PATHOLOGY ORDERABLES Elisa l Result * Electrocardiogram Report (09/21/2024 2:43 PM RECORDS SPECIALIST) Bay Santiago MD ECG ORDERABLES Final Result from Last 3 Months Insurance [employer] [facility] [employer] [place] [employer] Address: [address] [address] [place] [address] [employer] [facility] [employer] [place] [employer] Address: [place] [id number] [place] [address] [facility] MED[employer] ADVANTAGE [employer] Care Teams Packer Sausage [employer] Wiener Relationship Specialty Start Date End Date Letty Thorne MD [address] [place] [address] DR ALANIZ [address] [place] [address] PCP - General Internal Medicine 07/29/24
--- OUTSIDE RECORDS SUMMARY | 2024-11-22 08:25 | XMS_ITS | Encounter Summary ---
Author Organization [facility] Address [address] [place] [address] Care Team Providers Care Public Health Staff Nurse Name Role Phone Unavailable Primary Care Provider Unavailabl e Reason for Visit * Reason Onset Date Comments Question 09/08/2023 Encounter Details Date Type Department Care Team (Late st Contact Info) Description 09/08/2023 Telephone [facility] PAEDIATRICIAN [address], [facility] [address] [place] [address] Cheng Bliss Che, MD [address] [facility] [address] [place] [address] Question Social History Tobacco Use Types Packs/Day Years Used Date Smoking Tobacco: Never Assessed Comments Unknown Sex and Gender Information Value Date Recorded Sex Assigned at Not on file Legal Sex Female 9:27 AM CDT Gender Identity Not on file Sexual Orientation Not on file documented as of this encounter Miscellaneous Notes * Telephone Encounter - Carlota Christopher - 09/08/2023 9:12 AM CST Outbound call made to reschedule her appt (pt contracted covid) lft message for her to call back CB# [phone] ORATE SECURITY MANAGER documented in this encounter Plan of Treatment Not on file documented as of this encounter Visit Diagnoses Not on filedocumented in this encounter
== END 2024-11-22 08:14 | disposition home or self-care (01) ==
PROVIDERS: PCP Nurse Practitioner Family; Referring Provider Nurse Practitioner Family; Visit Provider Internal Medicine
DX: I73.9 Peripheral vascular disease, unspecified (principal)
CPT/HCPCS: 93925